=== PATIENT | female | born 1940 | race Caucasian/White ===

== ENCOUNTER 2024-02-20 13:10 | Emergency (ER) | payer MEDICARE, SELFPAY ==
[2024-02-20] VITALS (43 sets, daily range): BP systolic 109–138; BP diastolic 53–91; PULSE 63–91; TEMP 37; O2SAT 96–100; BMI 29.5
--- NOTE | 2024-02-20 13:24 | XR_ITS ---
[address] [address] Patient Name: LOVE XIAO MRN: [id number] date: 1940 Sex: F Assigned Patient Location: ER Current Patient Location: ED.MAIN Accession/Order Number: [id number] Exam Date: 02/20/2024 13:36 Report Date: 02/20/2024 13:52 At the request of: KIM FELDMAN Procedure: XR chest 1V EXAMINATION: XR chest 1V HISTORY: Weakness COMPARISON: XR chest 08/11/2016 FINDINGS: LUNGS: No significant pulmonary parenchymal abnormalities. VASCULATURE: No increased pulmonary vasculature. PLEURA: No pneumothorax, effusion, or pleural thickening. CARDIAC: Stable cardiomegaly. MEDIASTINUM: No visible mass or adenopathy. BONES: No fracture or visible bone lesion. OTHER: Hiatal hernia. XR/XR chest 1V IMPRESSION: 1. Hyperexpanded lungs suggestive of COPD. 2. No acute cardiopulmonary process. Electronically authenticated by: TISHA PEARSON Date: 02/20/2024 13:52
--- NOTE | 2024-02-20 13:29 | CT_ITS ---
The [address] [address] Patient Name: LOVE XIAO MRN: [id number] date: 1940 Sex: F Assigned Patient Location: ER Current Patient Location: ER Accession/Order Number: [id number] Exam Date: 02/20/2024 14:06 Report Date: 02/20/2024 14:34 At the request of: KIM FELDMAN Procedure: CT head/brain wo con EXAMINATION: CT head/brain wo con HISTORY: Generalized weakness COMPARISON: No relevant comparison available. TECHNIQUE: Axial CT images were obtained without IV contrast. Dose reduction techniques were achieved by using automated exposure control and/or adjustment of mA and/or kV according to patient size and/or use of iterative reconstruction technique. FINDINGS: BRAIN: No edema, hemorrhage, mass, acute infarction, or inappropriate atrophy. CSF SPACES: No hydrocephalus, subarachnoid hemorrhage, or mass. Appropriate for age. SKULL: No fracture, mass, or other significant visible lesion. SINUSES: No significant mucosal thickening or fluid on the limited views. ORBITS: No appreciable abnormality on the limited views. OTHER: Negative CT/CT head/brain wo con IMPRESSION: 1. No acute or suspicious findings to account for patient's symptoms. 2. Age consistent chronic changes. Electronically authenticated by: TISHA PEARSON Date: 02/20/2024 14:34
--- NOTE | 2024-02-20 13:30 | ED.GENADUL1 ---
HPI HPI - General Adult General Chief complaint: Weakness Stated complaint: general weakness Time Seen by Provider: 02/20/24 13:12 Source: patient and family Mode of arrival: Wheelchair Limitations: no limitations History of Present Illness HPI narrative: Patient is an 83-year-old female who presents to the emergency department for the evaluation of generalized weakness. This began about 6 hours ago. Patient was sitting on the toilet when her legs felt like Jell-O and she was not able to stand or transfer herself. She states that her legs feel very weak although she does not have any pain, numbness or tingling. She denies headache, visual changes, dizziness, palpitations, chest pain, shortness of breath. She is anticoagulated for history of A-fib. She has been compliant with all of her medications. She denies any recent illness, vomiting or diarrhea. She is able to move all extremities equally, although nursing reports that she was a two-person assist to get her out of the wheelchair and into bed when she is normally able to walk without difficulty. Related Data Home Medications ?Medication ?Instructions ?Recorded ?Confirmed apixaban 5 mg tablet (Eliquis) 5 mg PO Q12H 02/20/24 02/20/24 atenolol 50 mg tablet 50 mg PO Q24H 02/20/24 02/20/24 hydrochlorothiazide 25 mg tablet 25 mg PO DAILY 02/20/24 02/20/24 levothyroxine 50 mcg tablet 50 mcg PO DAILY 02/20/24 02/20/24 (Synthroid) metformin 500 mg tablet,extended 500 mg PO DAILY 02/20/24 02/20/24 release 24 hr omeprazole 40 mg capsule,delayed 40 mg PO DAILY 02/20/24 02/20/24 release pravastatin 40 mg tablet 40 mg PO DAILY 02/20/24 02/20/24 timolol maleate 0.5 % eye drops 1 drp ophthalmic (eye) BEDTIME 02/20/24 02/20/24 Allergies Allergy/AdvReac Type Severity Reaction Status Date / Time No Known Drug Allergies Allergy Verified 02/20/24 13:17 Opioid HPI Opioid Management Most Recent Opioid Data: No Data to Display Review of Systems ROS Constitutional Denies: fever or chills Ears, nose, mouth, and throat Denies: throat pain or nasal congestion Cardiovascular Denies: chest pain Respiratory Denies: shortness of breath Gastrointestinal Denies: nausea or vomiting Musculoskeletal Denies: back pain Integumentary/Breast Denies: rash Neurological Reports: dizziness; Denies: headache Hematologic/Lymphatic Denies: easy bruising or easy bleeding Exam Narrative Exam Narrative: Gen.: Awake, alert, in no distress Head: Normocephalic, atraumatic ENT: Moist mucous membranes Respiratory: No respiratory distress, lungs clear bilaterally Cardio: Regular rate and rhythm Gastrointestinal: Abdomen is soft, nondistended and nontender to palpation Extremities: Moves extremities equally, no injuries noted; Patient is able to flex and extend her knees at the hips, normal dorsiflexion and plantarflexion, no decrease in sensation to the medial thighs; 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 Psych: Normal mood and affect Neuro: No focal neuro deficit Skin: Warm, dry, intact Constitutional Vital Signs, click to edit/add: Last Vital Signs Temp 98.6 F 02/20/24 13:21 Pulse 82 02/20/24 16:00 Resp 19 02/20/24 16:00 BP 130/70 02/20/24 16:00 Pulse Ox 97 02/20/24 16:00 O2 Del Method Room Air 02/20/24 13:21 Course Vital Signs Vital signs: Vital Signs Pulse Oximetry 97 02/20/24 13:18 Temperature 98.6 F 02/20/24 13:21 Pulse Rate 82 02/20/24 16:00 Respiratory Rate 19 02/20/24 16:00 Blood Pressure 130/70 02/20/24 16:00 Pulse Oximetry 97 02/20/24 16:00 Oxygen Delivery Method Room Air 02/20/24 13:21 Medical Decision Making [facility] Narrative Medical decision making narrative: Patient treated with IV fluids, vital signs are stable. She has rate controlled atrial fibrillation which is chronic for her in the ER, no acute ST elevation and patient with no active chest pain or shortness of breath. She still complains of global weakness and required multiple people to transfer her. Her white blood cell count is 15.8, her labs are otherwise unremarkable although she has mildly elevated BUN at 38 with normal creatinine. We do not have an old set of labs from this patient to see if these findings are new. Initial lactic acid was elevated but repeat has improved to normal range. Initial troponin was 127.7 and Repeat elevated to 135.4. Patient reevaluated by attending physician, patient and family request transfer to [facility] that she cannot be admitted at this facility. She did take her Eliquis, we will defer heparin at this time as she has no active chest pain or EKG changes. Catheter urine specimen is mildly contaminated however no evidence of UTI. Patient is stable at time of transfer to [facility], critical care time 35 minutes. SHARED APC VISIT, PHYSICIAN ATTESTATION: [id number] I performed a substantive part of the MDM during the patient?s E/M visit. I personally evaluated and examined the patient. I personally made or approved the documented management plan and acknowledge its risk of complications. Medical Records Medical records reviewed: Yes I reviewed the patient's medical records Lab Data Lab results reviewed: Yes I reviewed the patient's lab results Labs: Lab Results 02/20/24 02/20/24 02/20/24 Range/Units 13:30 13:39 15:14 WBC 15.8 H (4.0-11.0) 10^3/uL RBC 3.98 L (4.20-5.40) 10^6/uL Hgb 11.7 L (12.0-16.0) g/dL Hct 36.2 (36.0-48.0) % MCV 91.0 (81.0-99.0) fL MCH 29.4 (26.7-34.0) pg MCHC 32.3 (29.9-35.2) g/dL RDW 14.2 (11.0-15.0) % Plt Count 249 (150-450) 10^3/uL MPV 10.9 (9.5-13.5) fL Neut % (Auto) 87.7 H (43.0-75.0) % Lymph % (Auto) 4.6 L (20.5-60.0) % Cass % (Auto) 6.6 (1.7-12.0) % Eos % (Auto) 0.2 L (0.9-7.0) % Baso % (Auto) 0.3 (0.2-2.0) % Neut # (Auto) 13.8 H (1.4-6.5) 10^3/uL Lymph # (Auto) 0.7 L (1.2-3.8) 10^3/uL Cass # (Auto) 1.0 H (0.3-0.8) 10^3/uL Eos # (Auto) 0.0 (0.0-0.7) 10^3/uL Baso # (Auto) 0.1 (0.0-0.1) 10^3/uL Abs Immat Gran (auto) 0.10 H (0.00-0.03) 10^3/uL Imm/Tot Granulo (auto) 0.6 H (0.0-0.5) % PT 11.9 H (9.0-11.6) sec INR 1.14 Sodium 140 (136-145) mmol/L Potassium 3.5 (3.5-5.1) mmol/L Chloride 101 (98-107) mmol/L Carbon Dioxide 28.3 (21.0-32.0) mmol/L Anion Gap 14.2 BUN 38.0 H (7.0-18.0) mg/dL Creatinine 0.95 (0.55-1.02) mg/dL Est GFR ( Amer) >60 (>=60) Est GFR (Non-Af Amer) 56 L (>=60) BUN/Creatinine Ratio 40.0 Glucose 191 H (74-106) mg/dL Lactate 3.0 H* 1.9 (0.4-2.0) mmol/L Calcium 9.2 (8.5-10.1) mg/dL Magnesium 1.8 (1.8-2.4) mg/dL Total Bilirubin 0.6 (0.2-1.0) mg/dL AST 53 H (15-37) U/L ALT 26 (14-59) U/L Alkaline Phosphatase 94 (46-116) U/L Troponin I High Sens 127.7 H* 135.4 H* (4.0-51.3) pg/mL NT-Pro-B Natriuret Pep 1471.0 (<=1800.0) pg/mL Total Protein 7.5 (6.4-8.2) g/dL Albumin 3.3 L (3.4-5.0) g/dL Globulin 4.2 g/dL Albumin/Globulin Ratio 0.8 TSH 2.346 (0.358-3.740) uIU/mL Urine Color Yellow (YELLOW) Urine Clarity Sl cloudy (CLEAR) Urine pH 6.0 (5.0-9.0) Ur Specific [place] 1.025 (1.005-1.025) Urine Protein 30 A (NEG/TRACE) mg/dL Urine Glucose (UA) Negative (NEGATIVE) mg/dL Urine Ketones Negative (NEGATIVE) mg/dL Urine Occult Blood Small A (NEGATIVE) Urine Nitrite Negative (NEGATIVE) Urine Bilirubin Negative (NEGATIVE) Urine Urobilinogen 1.0 (0.2-1.0) EU/dL Ur Leukocyte Esterase Negative (NEGATIVE) Urine RBC 0-2 (0-2) #/HPF Urine WBC 0-2 A (NONE SEEN) #/HPF Ur Squamous Epith Cells Many A (NONE/RARE) #/LPF Urine Crystals None seen (None Seen) #/HPF Urine Bacteria Large A (NONE SEEN) #/HPF Urine Casts None seen (NONE SEEN) #/LPF Urine Mucus Large A (NONE SEEN) Ur Culture Indicated? Yes Imaging Data Chest x-ray: Attestation: I have reviewed the pertinent imaging results. Radiologist's impression: ITS Impressions Chest X-Ray 02/20/24 13:24 IMPRESSION: 1. Hyperexpanded lungs suggestive of COPD. 2. No acute cardiopulmonary process. Electronically authenticated by: TISHA PEARSON Date: 02/20/2024 13:[address] 02/20/24 13:29 IMPRESSION: 1. No acute or suspicious findings to account for patient's symptoms. 2. Age consistent chronic changes. Electronically authenticated by: TISHA PEARSON Date: 02/20/2024 14:34 CT scan - head: Attestation: I have reviewed the pertinent imaging results. Radiologist's impression: ITS Impressions Chest X-Ray 02/20/24 13:24 IMPRESSION: 1. Hyperexpanded lungs suggestive of COPD. 2. No acute cardiopulmonary process. Electronically authenticated by: TISHA PEARSON Date: 02/20/2024 13:[address] 02/20/24 13:29 IMPRESSION: 1. No acute or suspicious findings to account for patient's symptoms. 2. Age consistent chronic changes. Electronically authenticated by: TISHA PEARSON Date: 02/20/2024 14:34 ECG Data Attestation: I personally reviewed and interpreted this ECG as follows: (Atrial fibrillation at a rate of 80, no acute ST elevation or ectopy. EKG reviewed by attending physician) Critical Care Time Critical Care Time Critical Care Time: Yes Total Critical Care Time: 35 Attestation: 35 minutes of critical care time billable for transfer to tertiary care facility and diagnosis of non-STEMI Discharge Plan Discharge Chief Complaint: Weakness Clinical Impression: Non-ST elevated myocardial infarction (non-STEMI), Weakness Patient Disposition: [facility] Time of Disposition Decision: 17:40 Discharge Location: [facility] Condition: Good Mode of Transportation: EMS
[2024-02-20 13:47] LABS: Bilirubin Urine NEGATIVE (NEGATIVE); Blood Urine SMALL (NEGATIVE); Clarity Urine SL CLOUDY (CLEAR); Color Urine YELLOW (YELLOW); Glucose Urine UA NEGATIVE (NEGATIVE); Ketones Urine NEGATIVE (NEGATIVE); Leukocyte Esterase Urine NEGATIVE (NEGATIVE); Nitrite Urine NEGATIVE (NEGATIVE); Protein Urine 30 mg/dL (NEG/TRACE); Specific Gravity Urine 1.025 (1.005-1.025)
[2024-02-20 13:49] LABS: Basophils Absolute Auto 0.1 10^3/uL (0.0-0.1); Basophils Percent Auto 0.3 % (0.2-2.0); Eosinophils Percent Auto 0.2 % (0.9-7.0); Hematocrit 36.2 % (36.0-48.0); Hemoglobin 11.7 g/dL (12.0-16.0); Immature Granulocytes Pct Auto 0.6 % (0.0-0.5); Lymphocytes Absolute Auto 0.7 10^3/uL (1.2-3.8); Lymphocytes Percent Auto 4.6 % (20.5-60.0); Mean Corpuscular HGB Conc 32.3 g/dL (29.9-35.2); Mean Corpuscular Hemoglobin 29.4 pg (26.7-34.0); Mean Platelet Volume 10.9 fL (9.5-13.5); Monocytes Percent Auto 6.6 % (1.7-12.0); Neutrophils Absolute Auto 13.8 10^3/uL (1.4-6.5); Neutrophils Percent Auto 87.7 % (43.0-75.0); Platelet Count 249 10^3/uL (150-450); Red Blood Count 3.98 10^6/uL (4.20-5.40); Red Cell Distribution Width 14.2 % (11.0-15.0); White Blood Count 15.8 10^3/uL (4.0-11.0)
[2024-02-20 14:02] LABS: INR 1.14; Prothrombin Time 11.9 sec (9.0-11.6)
[2024-02-20 14:07] LABS: Urine Microscopic Indicated YES
[2024-02-20 14:08] LABS: Alanine Aminotransferase 26 U/L (14-59); Albumin Globulin Ratio 0.8; Albumin Level 3.3 g/dL (3.4-5.0); Alkaline Phosphatase 94 U/L (46-116); Anion Gap 14.2; Aspartate Amino Transferase 53 U/L (15-37); Bilirubin Total 0.6 mg/dL (0.2-1.0); Calcium 9.2 mg/dL (8.5-10.1); Carbon Dioxide 28.3 mmol/L (21.0-32.0); Chloride 101 mmol/L (98-107); Estimated GFR (African America >60 (>=60); Estimated GFR (Non-African Ame 56 (>=60); Globulin 4.2 g/dL; Glucose 191 mg/dL (74-106); Magnesium 1.8 mg/dL (1.8-2.4); Potassium 3.5 mmol/L (3.5-5.1); Sodium 140 mmol/L (136-145); Total Protein 7.5 g/dL (6.4-8.2)
[2024-02-20 14:11] LABS: Bacteria Urine LARGE #/HPF (NONE SEEN); Mucus Urine LARGE (NONE SEEN); RBC Urine 0-2 #/HPF (0-2); WBC Urine 0-2 #/HPF (NONE SEEN)
[2024-02-20 14:12] LABS: Cast Seen? NONE SEEN #/LPF (NONE SEEN); Crystals Seen? None Seen #/HPF (None Seen); Squamous Epithelial Cell Urine MANY #/LPF (NONE/RARE); Urine Culture Indicated YES
[2024-02-20 14:12] LABS: Thyroid Stimulating Hormone 2.346 uIU/mL (0.358-3.740)
[2024-02-20 14:13] LABS: Troponin I High Sensitivity 127.7 pg/mL (4.0-51.3)
[2024-02-20] MEDS: 0.9 % SODIUM CHLORIDE 1,000 ML 1000 ML IV (14:19)
[2024-02-20 15:38] LABS: Lactate/Lactic Acid 1.9 mmol/L (0.4-2.0)
[2024-02-20 15:46] LABS: Troponin I High Sensitivity 135.4 pg/mL (4.0-51.3)
--- NOTE | 2024-02-20 15:53 | ECG_ITS ---
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
[2024-02-20 18:53] LABS: Creatine Kinase 1862 U/L (26-192); Creatine Kinase MB 39.69 ng/mL (<=3.60); Troponin I High Sensitivity 165.6 pg/mL (4.0-51.3)
== END 2024-02-20 19:55 | disposition short-term general hospital (02) ==
PROVIDERS: Physician Assistant; Emergency Provider Emergency Medicine Emergency Medical Services; PCP Nurse Practitioner Family
DX: I21.3 ST elevation (STEMI) myocardial infarction of unspecified site (principal); R53.1 Weakness; I48.91 Unspecified atrial fibrillation; Z79.01 Long term (current) use of anticoagulants
CPT/HCPCS: 36415; 70450; 71045; 80053; 81001; 82550; 82553; 83605; 83735; 83880; 84443; 84484; 85025; 85610; 87086; 93005; 99285

== ENCOUNTER 2024-06-30 12:39 | Emergency (ER) | payer MEDICARE, SELFPAY ==
--- OUTSIDE RECORDS SUMMARY | 2024-06-30 12:51 | XMS_ITS | CCD ---
Author Organization [facility] Care Team Providers Care Land Reclamation Specialist Name Role Phone TORI DIAZ Admitting Unavailable TORI DIAZ Attending Unavailable JOSE GALINDO Primary Care Unavailable TORI DIAZ Consulting Unavailable Jose Galindo Unavailable Unavailable Iliana Nava MD Primary Care Provider MARCIANO Isabel Primary Care Provider [phone] MD Cash Abreu Admit Provider MD Guero Cantu Attending Provider Guero Cantu Attending Unavailable Chen Calderon Consulting Unavailable Nolan Isabel Primary Care Unavailable Cash Abreu Admitting Unavailable Brayan Martin Consulting Unavailable Kyle Arenas Consulting Ana Lilia Mckeon Consulting Unavailable Jose Galindo Unavailable Unavailable NOLAN ISABEL Attending Unavailable BENITO CHO Attending Unavailable Allergies Allergy Classification Reported Allergen(s) Allergy Type Date of Onset Reaction(s) Facility (5 sources) Sucralfate Drug Allergy 4 GI intolerance [facility] Healthcare (5 sources) zoledronic acid Drug Allergy 4 [facility] Medications Current Medications Medication Drug Class(es) Dates Sig (Normalized) Sig (Original) apixaban 5 mg oral tablet (6 sources) Factor Xa Inhibitor Start: 12-08-2023 take 1 tablet by mouth in the morning apixaban (Eliquis) 5 MG tablet Indications: Persistent atrial fibrillation (HCC) (CMS/HCC) Take 1 tablet (5 mg) by mouth in the morning and 1 tablet (5 mg) before bedtime. 180 tablet 12/08/2023 Active apixaban (Eliqui s) 5 MG tablet Take by mouth twice a day 0 Active atenolol 50 mg oral tablet (6 sources) beta-Adrenergic Melissa Start: 06-29-2023 End: 06-28-2024 take 1 tablet by mouth in the morning atenolol (Tenormin) 50 MG tablet Indications: Primary hypertension (CMS/HCC) Take 1 tablet (50 mg) by mouth in the morning. 90 tablet 3 06/29/2023 06/28/2024 Active cholecalciferol 0.05 mg oral capsule (6 sources) Vitamin D Start: 02-21-2024 take 50 ug by mouth once daily Cholecalciferol (Vitamin D3) Active 50 MCG PO Daily February 21, 2024 12:00am take 1 capsule by mouth in the m orning cholecalciferol (Vitamin D-3) 50 MCG (1999 UT) capsule Take 2,000 Units by mouth in the morning. Active doxycycline hyclate 100 mg oral tablet (1 source) Tetracycline-class Drug Start: 02-26-2024 take 100 mg by mouth every twelve hours Doxycycline Hyclate Active 100 MG PO Q12H 20 February 26, 2024 12:00am hydroCHLOROthiazide 25 mg oral tablet (8 sources) Thiazide Diuretic Start: 03-15-2023 End: 10-11-2023 take 1 tablet by mouth in the morning hydroCHLOROthiazide (HYDRODiuril) 25 MG tablet Indications: Primary hypertension (CMS/HCC) Take 1 tablet (25 mg) by mouth in the morning. 90 tablet 1 10/11/2023 Active latanoprost 0.05 mg/ml ophthalmic solution (6 sources) Prostaglandin Analog Start: 02-21-2024 take 1 drop(s) into the eye(s) once daily Latanoprost Active 1 DROPS EYE-BOTH Daily February 21, 2024 12:00am Start: 02-02-2023 take 1 drop(s) into the eye(s) in the morning latanoprost (Xalatan) 0.005 % ophthalmic solution Administer 1 drop into affected eye(s) in the morning. 02/02/2023 Active levothyroxine sodium 0.05 mg oral tablet (6 sources) l-Thyroxine Start: 05-01-2023 End: 04-30-2024 take 1 tablet by mouth before mealtime levothyroxine (Synthroid, Levoxyl) 50 MCG tablet Indications: Acquired hypothyroidism (CMS/HCC) Take 1 tablet (50 mcg) by mouth in the morning. Take before meals. 90 tablet 3 05/01/2023 Active 24 hr metFORMIN hydrochloride 500 mg extended release oral tablet (6 sources) Biguanide Start: 02-21-2024 take 500 mg by mouth once daily Metformin Active 500 MG PO Daily February 21, 2024 12:00am Start: 03-15-2023 End: 03-14-2024 take 1 tablet by mouth every twenty-four hours at mealtime metFORMIN XR (Glucophage-XR) 500 MG 24 hr tablet Indications: Type 2 diabetes mellitus with hyperglycemia, without long-term current use of insulin (CMS/HCC) Take 1 tablet (500 mg) by mouth in the evening. Take with meals. 90 tablet 3 03/15/2023 Active omeprazole 40 mg delayed release oral capsule (8 sources) Proton Pump Inhibitor Start: 03-13-2023 End: 10-11-2023 take 1 capsule by mouth before mealtime omeprazole (PriLOSEC) [address] capsule Indications: Gastroesophageal reflux disease, unspecified whether esophagitis present Take 1 capsule (40 mg) by mouth in the morning. Take before meals. 90 capsule 1 10/11/2023 Active pravastatin sodium 40 mg oral tablet (8 sources) HMG-CoA Reductase Inhibitor Start: 04-14-2023 End: 04-13-2024 take 1 tablet by mouth in the morning pravastatin (Pravachol) 40 MG tablet Indications: Mixed hyperlipidemia (CMS/HCC) Take 1 tablet (40 mg) by mouth in the morning. 90 tablet 3 04/14/2023 Active Timolol (6 sources) beta-Adrenergic Melissa Start: 02-21-2024 take 1 drop(s) into the eye(s) once daily Timolol Active 1 DROPS EYE-BOTH Daily February 21, 2024 12:00am Start: 01-27-2023 take 1 drop(s) into the eye(s) at bedtime timolol (Timoptic) 0.5 % ophthalmic solution Administer 1 drop into affected eye(s) at bedtime 01/27/2023 Active Completed/Discontinued Medications Medication Drug Class(es) Dates Sig (Normalized) Sig (Original) moxifloxacin 5 mg/ml ophthalmic solution (2 sources) Quinolone Antimicrobial Start: 06-02-2023 End: 10-11-2023 take 1 drop(s) into the eye(s) four times daily moxifloxacin (Vigamox) 0.5 % ophthalmic solution instill 1 drop into left eye four times a day 0 06/02/2023 10/11/2023 Discontinued Problems Active Problems Problem Classification Problem Date Documented Date Episodic/Chronic Adjustment disorders (7 sources) Grief finding; Translations: [Adjustment disorder with depressed mood] Onset: 10-11-2023 10-13-2023 Chronic Anxiety disorders (7 sources) Anxiety; Translations: [Anxiety disorder, unspecified] Onset: 10-11-2023 10-13-2023 Chronic Cancer of breast (7 sources) Malignant neoplasm of female breast; Translations: [Malignant neoplasm of unspecified site of left female breast] Onset: 05-07-2015 10-13-2023 Chronic Cardiac dysrhythmias (9 sources) Persistent atrial fibrillation; Translations: [Other persistent atrial fibrillation] Onset: 10-11-2023 10-13-2023 Chronic Deficiency and other anemia (2 sources) Anemia; Translations: [Anemia, unspecified] 10-11-2023 Episodic Diabetes mellitus with complications (8 sources) Type 2 diabetes mellitus; Translations: [Type 2 diabetes mellitus with hyperglycemia] Onset: 10-11-2023 10-11-2023 Chronic Diabetes mellitus without complication (2 sources) Type 2 diabetes mellitus without complications; Translations: [Diabetes mellitus without mention of complication, type II or unspecified type, not stated as uncontrolled] Onset: 02-21-2024 03-02-2024 Chronic Diseases of white blood cells (3 sources) Leukocytosis; Translations: [Elevated white blood cell count, unspecified] Onset: 02-21-2024 02-21-2024 Chronic Disorders of lipid metabolism (7 sources) Mixed hyperlipidemia; Translations: [Mixed hyperlipidemia] Onset: 10-11-2023 10-11-2023 Chronic E Codes: Fall (3 sources) Fall; Translations: [Unspecified fall, initial encounter] Onset: 02-21-2024 02-21-2024 Episodic Essential hypertension (11 sources) Essential (primary) hypertension; Translations: [Essential hypertension] Onset: 04-23-2019 10-11-2023 Chronic External cause codes: Natural/environment (1 source) Bitten or stung by nonvenomous insect and other nonvenomous arthropods, initial encounter; Translations: [BITTEN NONVENOM INSCT OTH ARTH INIT] Onset: 04-23-2019 Glaucoma (5 sources) Primary open angle glaucoma; Translations: [Primary open-angle glaucoma, unspecified eye, mild stage] Onset: 10-11-2023 10-11-2023 Chronic Mycoses (2 sources) Onychomycosis due to dermatophyte ; Translations: [Tinea unguium] 06-24-2024 Episodic Osteoarthritis (7 sources) Primary coxarthrosis, bilateral; 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] Onset: 10-11-2023 10-13-2023 Chronic Osteoporosis (2 sources) Senile osteoporosis; Translations: [Age-related osteoporosis without current pathological fracture] 10-11-2023 Chronic Other connective tissue disease (5 sources) History of repair of hip joint; Translations: [Presence of right artificial hip joint] Onset: 10-11-2023 10-11-2023 Chronic Other connective tissue disease (4 sources) Pain in toe; Translations: [Pain in right toe(s)] 06-24-2024 Episodic Other nervous system disorders (7 sources) Difficulty initiating walking; Translations: [Difficulty in walking, not elsewhere classified] Onset: 10-11-2023 10-11-2023 Chronic Other nervous system disorders (2 sources) Unsteady when walking; Translations: [Unsteadiness on feet] 10-13-2023 Episodic Other screening for suspected conditions (not mental disorders or infectious disease) (3 sources) Raised cardiac enzyme or marker; Translations: [Other specified abnormal findings of blood chemistry] Onset: 02-21-2024 02-21-2024 Episodic Other skin disorders (2 sources) Dystrophia unguium; Translations: [Nail dystrophy] 06-24-2024 Episodic Paralysis (3 sources) Paraparesis; Translations: [Paraplegia, unspecified] Onset: 02-21-2024 02-21-2024 Chronic Residual codes; unclassified (2 sources) Screening for malignant neoplasm of cervix declined; Translations: [Procedure and treatment not carried out because of patient's decision for unspecified reasons] 10-13-2023 Episodic Residual codes; unclassified (2 sources) Colon cancer screening declined; Translations: [Procedure and treatment not carried out because of patient's decision for unspecified reasons] 10-13-2023 Episodic Residual codes; unclassified (2 sources) Osteoporosis screening declined; Translations: [Procedure and treatment not carried out because of patient's decision for unspecified reasons] 10-13-2023 Episodic Superficial injury; contusion (4 sources) Insect bite (nonvenomous), left ankle, initial encounter; Translations: [INSECT BITE NONVENOM LT ANKLE INIT] Onset: 04-21-2019 Episodic Thyroid disorders (7 sources) Acquired hypothyroidism; Translations: [Hypothyroidism, unspecified] Onset: 10-11-2023 10-11-2023 Chronic Unclassified (1 source) Other persistent atrial fibrillation; Translations: [Other persistent atrial fibrillation] Onset: 02-21-2024 Past or Other Problems Problem Classification Problem Date Documented Date Episodic/Chronic E Codes: Adverse effects of medical drugs (5 sources) Adverse reaction caused by bisphosphonate; Translations: [Adverse effect of other primarily systemic and hematological agents, initial encounter] Onset: 10-11-2023 10-11-2023 Episodic Esophageal disorders (10 sources) Gastroesophageal reflux disease; Translations: [Gastro-esophageal reflux disease without esophagitis] Onset: 10-11-2023 Resolved: 10-11-2023 10-11-2023 Chronic Mood disorders (5 sources) Mood disorders Onset: 10-11-2023 10-11-2023 Other bone disease and musculoskeletal deformities (7 sources) Osteopenia; Translations: [Other specified disorders of bone density and structure, unspecified site] Onset: 10-11-2023 10-13-2023 Episodic Other nutritional; endocrine; and metabolic disorders (5 sources) Body mass index 25-29 - overweight; Translations: [Overweight] Onset: 10-11-2023 10-11-2023 Episodic Residual codes; unclassified (5 sources) History of left mastectomy; Translations: [Acquired absence of left breast and nipple] Onset: 10-11-2023 10-11-2023 Episodic Results Test Name Value Interpretation Reference Range Facility Capillary blood glucose gurdeep urement by glucometer (mass/volume)Ordered By: Guero Cantu on 03-02-2024 Glucose [Mass/Vol] 165 mg/dL Normal [facility] Comment on above: Random Glucose Refer ence Range is dependent on time and content of last meal. Glucose of more than 200 mg/dL in a nonstressed, ambulatory subject supports the diagnosis of Diabetes Mellitus. Result Comment: Almo om Glucose Reference Range is dependent on time and content of last meal. Glucose of more than 200 mg/dL in a nonstressed, ambulatory subject supports the diagnosis of Diabetes Mellitus. PERFORMED BY: [address] [place] [address] PATHOLOGIST 911 EMERGENCY DISPATCHER KAYLIE CHICAS M.D. Performed By: #### P HOS, MG, BNP #### [facility] [address] [place] [address] Glucose Poct Glucometerson 0 03-02-2024 Glucose [Mass/Vol] 176 mg/dL Normal [facility] Comment on above: Result Comment: Almo om Glucose Reference Range is dependent on time and content of last meal. Glucose of more than 200 mg/dL in a nonstressed, ambulatory subject supports the diagnosis of Diabetes Mellitus. PERFORMED BY: [address] [place] [phone] PATHOLOGIST 911 EMERGENCY DISPATCHER KAYLIE CHICAS M.D. Performed By: #### P HOS, MG, BNP #### [facility] [address] [place] [address] Glucose [Mass/Vol] 156 mg/dL Normal [facility] Comment on above: Result Comment: Almo om Glucose Reference Range is dependent on time and content of last meal. Glucose of more than 200 mg/dL in a nonstressed, ambulatory subject supports the diagnosis of Diabetes Mellitus. PERFORMED BY: [address] [place] [id number] PATHOLOGIST 911 EMERGENCY DISPATCHER KAYLIE CHICAS M.D. Performed By: #### G LULS #### Point of Care testing , Glucose Poct Glucometerson 0 03-01-2024 Glucose [Mass/Vol] 204 mg/dL Normal [facility] Comment on above: Result Comment: Almo om Glucose Reference Range is dependent on time and content of last meal. Glucose of more than 200 mg/dL in a nonstressed, ambulatory subject supports the diagnosis of Diabetes Mellitus. PERFORMED BY: [address] [place] [address] PATHOLOGIST 911 EMERGENCY DISPATCHER KAYLIE CHICAS M.D. Performed By: #### G LULS #### Point of Care testing , Commemt1 Glu2: Cleaned Meter Normal [facility] Comment on above: Result Comment: PERF ORMED BY: [place] [address] PATHOLOGIST 911 EMERGENCY DISPATCHER KAYLIE CHICAS M.D. Performed By: #### P HOS, MG, BNP #### [address] Glucose [Mass/Vol] 187 mg/dL Normal [facility] Comment on above: Result Comment: Almo om Glucose Reference Range is dependent on time and content of last meal. Glucose of more than 200 mg/dL in a nonstressed, ambulatory subject supports the diagnosis of Diabetes Mellitus. Performed By: #### P HOS, MG, BNP #### [address] Glucose [Mass/Vol] 208 mg/dL Normal [facility] Comment on above: Result Comment: Almo om Glucose Reference Range is dependent on time and content of last meal. Glucose of more than 200 mg/dL in a nonstressed, ambulatory subject supports the diagnosis of Diabetes Mellitus. PERFORMED BY: [place] [address] PATHOLOGIST 911 EMERGENCY DISPATCHER KAYLIE CHICAS M.D. Performed By: #### G LULS #### Point of Care testing , Glucose [Mass/Vol] 143 mg/dL Normal [facility] Comment on above: Result Comment: Almo om Glucose Reference Range is dependent on time and content of last meal. Glucose of more than 200 mg/dL in a nonstressed, ambulatory subject supports the diagnosis of Diabetes Mellitus. PERFORMED BY: [place] [address] PATHOLOGIST 911 EMERGENCY DISPATCHER KAYLIE CHICAS M.D. Performed By: #### P HOS, MG, BNP #### [address] No Panel InformationOrdered By: Anand Khan on 03-01-2024 Bedside Glucose Comment Glu2: cleaned meter [facility] Glucose Poct Glucometerson 0 02-29-2024 Glucose [Mass/Vol] 159 mg/dL Normal [facility] Comment on above: Result Comment: Almo om Glucose Reference Range is dependent on time and content of last meal. Glucose of more than 200 mg/dL in a nonstressed, ambulatory subject supports the diagnosis of Diabetes Mellitus. PERFORMED BY: [place] [address] PATHOLOGIST 911 EMERGENCY DISPATCHER KAYLIE CHICAS M.D. Performed By: #### G LULS #### Point of Care testing , Glucose [Mass/Vol] 152 mg/dL Normal [facility] Comment on above: Result Comment: Almo Glucose Reference Range is dependent on time and content of last meal. Glucose of more than 200 mg/dL in a nonstressed, ambulatory subject supports the diagnosis of Diabetes Mellitus. PERFORMED BY: [place] [address] PATHOLOGIST 911 EMERGENCY DISPATCHER KAYLIE CHICAS M.D. Performed By: #### G LULS #### Point of Care testing , Glucose [Mass/Vol] 140 mg/dL Normal [facility] Comment on above: Result Comment: Almo Glucose Reference Range is dependent on time and content of last meal. Glucose of more than 200 mg/dL in a nonstressed, ambulatory subject supports the diagnosis of Diabetes Mellitus. PERFORMED BY: [place] [address] PATHOLOGIST 911 EMERGENCY DISPATCHER KAYLIE CHICAS M.D. Performed By: #### P HOS, MG, BNP #### [address] Glucose [Mass/Vol] 169 mg/dL Normal [facility] Comment on above: Result Comment: Almo Glucose Reference Range is dependent on time and content of last meal. Glucose of more than 200 mg/dL in a nonstressed, ambulatory subject supports the diagnosis of Diabetes Mellitus. PERFORMED BY: [place] [address] PATHOLOGIST 911 EMERGENCY DISPATCHER KAYLIE CHICAS M.D. Performed By: #### P HOS, MG, BNP #### [facility] [address] [place], [place] [id number] [facility] Glucose Poct Glucometerson 0 02-28-2024 Glucose [Mass/Vol] 170 mg/dL Normal [facility] Comment on above: Result Comment: Almo om Glucose Reference Range is dependent on time and content of last meal. Glucose of more than 200 mg/dL in a nonstressed, ambulatory subject supports the diagnosis of Diabetes Mellitus. PERFORMED BY: [place] [address] PATHOLOGIST 911 EMERGENCY DISPATCHER KAYLIE CHICAS M.D. Performed By: #### P HOS, MG, BNP #### [place] [address] [place] Glucose [Mass/Vol] 144 mg/dL Normal [facility] Comment on above: Result Comment: Almo om Glucose Reference Range is dependent on time and content of last meal. Glucose of more than 200 mg/dL in a nonstressed, ambulatory subject supports the diagnosis of Diabetes Mellitus. PERFORMED BY: [place] [address] PATHOLOGIST 911 EMERGENCY DISPATCHER KAYLIE CHICAS M.D. Performed By: #### P HOS, MG, BNP #### [place] [address] [place] Glucose [Mass/Vol] 190 mg/dL Normal [facility] Comment on above: Result Comment: Almo om Glucose Reference Range is dependent on time and content of last meal. Glucose of more than 200 mg/dL in a nonstressed, ambulatory subject supports the diagnosis of Diabetes Mellitus. PERFORMED BY: [place] [address] PATHOLOGIST 911 EMERGENCY DISPATCHER KAYLIE CHICAS M.D. Performed By: #### P HOS, MG, BNP #### [place] [id number] [place] Glucose [Mass/Vol] 170 mg/dL Normal [facility] Comment on above: Result Comment: Almo om Glucose Reference Range is dependent on time and content of last meal. Glucose of more than 200 mg/dL in a nonstressed, ambulatory subject supports the diagnosis of Diabetes Mellitus. PERFORMED BY: [place] [address] PATHOLOGIST 911 EMERGENCY DISPATCHER KAYLIE CHICAS M.D. Performed By: #### P HOS, MG, BNP #### [address] Glucose [Mass/Vol] 149 mg/dL Normal [facility] Comment on above: Result Comment: Almo om Glucose Reference Range is dependent on time and content of last meal. Glucose of more than 200 mg/dL in a nonstressed, ambulatory subject supports the diagnosis of Diabetes Mellitus. PERFORMED BY: [place] [address] PATHOLOGIST 911 EMERGENCY DISPATCHER KAYLIE CHICAS M.D. Performed By: #### G LULS #### Point of Care testing , Glucose Poct Glucometerson 0 02-27-2024 Glucose [Mass/Vol] 134 mg/dL Normal [facility] Comment on above: Result Comment: Almo om Glucose Reference Range is dependent on time and content of last meal. Glucose of more than 200 mg/dL in a nonstressed, ambulatory subject supports the diagnosis of Diabetes Mellitus. PERFORMED BY: [place] [id number] PATHOLOGIST 911 EMERGENCY DISPATCHER KAYLIE CHICAS M.D. Performed By: #### G LULS #### Point of Care testing , Glucose [Mass/Vol] 215 mg/dL Normal [facility] Comment on above: Result Comment: Almo om Glucose Reference Range is dependent on time and content of last meal. Glucose of more than 200 mg/dL in a nonstressed, ambulatory subject supports the diagnosis of Diabetes Mellitus. PERFORMED BY: [place] [id number] PATHOLOGIST 911 EMERGENCY DISPATCHER JIANLAN SUN M.D. Performed By: #### P HOS, MG, BNP #### [address] Glucose [Mass/Vol] 171 mg/dL Normal [facility] Comment on above: Result Comment: Almo om Glucose Reference Range is dependent on time and content of last meal. Glucose of more than 200 mg/dL in a nonstressed, ambulatory subject supports the diagnosis of Diabetes Mellitus. PERFORMED BY: [place] [address] PATHOLOGIST 911 EMERGENCY DISPATCHER KAYLIE CHICAS M.D. Performed By: #### G LULS #### Point of Care testing , Glucose [Mass/Vol] 141 mg/dL Normal [facility] Comment on above: Result Comment: Almo om Glucose Reference Range is dependent on time and content of last meal. Glucose of more than 200 mg/dL in a nonstressed, ambulatory subject supports the diagnosis of Diabetes Mellitus. PERFORMED BY: [place] [address] PATHOLOGIST 911 EMERGENCY DISPATCHER KAYLIE CHICAS M.D. Performed By: #### P HOS, MG, BNP #### [address] Glucose Poct Glucometerson 0 02-26-2024 Glucose [Mass/Vol] 144 mg/dL Normal [facility] Comment on above: Result Comment: Almo om Glucose Reference Range is dependent on time and content of last meal. Glucose of more than 200 mg/dL in a nonstressed, ambulatory subject supports the diagnosis of Diabetes Mellitus. PERFORMED BY: [place] [address] PATHOLOGIST 911 EMERGENCY DISPATCHER KAYLIE CHICAS M.D. Performed By: #### G LULS #### Point of Care testing , Commemt1 Glu2: Cleaned Meter Normal [facility] Comment on above: Result Comment: PERF ORMED BY: [place] [address] PATHOLOGIST 911 EMERGENCY DISPATCHER KAYLIE CHICAS M.D. Performed By: #### P HOS, MG, BNP #### [facility] [address] Glucose [Mass/Vol] 164 mg/dL Normal [facility] Comment on above: Result Comment: Almo om Glucose Reference Range is dependent on time and content of last meal. Glucose of more than 200 mg/dL in a nonstressed, ambulatory subject supports the diagnosis of Diabetes Mellitus. Performed By: #### P HOS, MG, BNP #### [address] Commemt1 Glu2: Cleaned Meter Normal [facility] Comment on above: Result Comment: PERF ORMED BY: [place] [address] PATHOLOGIST 911 EMERGENCY DISPATCHER KAYLIE CHICAS M.D. Performed By: #### P HOS, MG, BNP #### [address] Glucose [Mass/Vol] 137 mg/dL Normal [facility] Comment on above: Result Comment: Almo om Glucose Reference Range is dependent on time and content of last meal. Glucose of more than 200 mg/dL in a nonstressed, ambulatory subject supports the diagnosis of Diabetes Mellitus. Performed By: #### P HOS, MG, BNP #### [address] Glucose [Mass/Vol] 157 mg/dL Normal [facility] Comment on above: Result Comment: Almo om Glucose Reference Range is dependent on time and content of last meal. Glucose of more than 200 mg/dL in a nonstressed, ambulatory subject supports the diagnosis of Diabetes Mellitus. PERFORMED BY: [place] [address] PATHOLOGIST 911 EMERGENCY DISPATCHER KAYLIE CHICAS M.D. Performed By: #### G LULS #### Point of Care testing , Alanine aminotransferase [En zymatic activity/volume] in Serum or PlasmaOrdered By: Navi Torres on 02-25-2024 ALT [Catalytic activity/Vol] 18 U/L Normal 7-52 [facility] Comment on above: Performed By: #### H S TROP #### [address] Albumin [Mass/volume] in Ser um or Plasma by Bromocresol green (BCG) dye binding methoOrdered By: Navi Torres on 02-25-2024 Albumin BCG dye [Mass/Vol] 3.2 g/dL Low 3.5-5.7 [facility] Alkaline phosphatase [Enzyma tic activity/volume] in Serum or PlasmaOrdered By: Navi Torres on 02-25-2024 ALP [Catalytic activity/Vol] 61 U/L Normal 34-104 [facility] Comment on above: Performed By: #### H S TROP #### [address] Aspartate aminotransferase [ Enzymatic activity/volume] in Serum or PlasmaOrdered By: Navi Torres on 02-25-2024 AST [Catalytic activity/Vol] 21 U/L Normal 13-39 [facility] Comment on above: Performed By: #### H S TROP #### [address] Automated basophil %Ordered By: Cash Abreu on 02-25-2024 Basophils/100 WBC (Bld) 0.7 % Normal . [facility] Comment on above: Performed By: #### H S TROP #### [address] Automated basophil countOrde red By: Cash Abreu on 02-25-2024 Basophils (Bld) [#/Vol] 0.0 10*3/uL Normal 0.0-0.2 [facility] Comment on above: Result Comment: PERF ORMED BY: [place] [address] PATHOLOGIST 911 EM[employer] DISPATCHER KAYLIE CHICAS M.D. Performed By: #### H S TROP #### [address] Automated blood monocyte cou ntOrdered By: Cash Abreu on 02-25-2024 Monocytes (Bld) [#/Vol] 0.6 10*3/uL Normal 0.0-0.8 [facility] Comment on above: Performed By: #### H S TROP #### [address] Automated eosinophil %Ordere d By: Cash Abreu on 02-25-2024 Eosinophils/100 WBC (Bld) 6.1 % Normal . [facility] Comment on above: Performed By: #### H S TROP #### [address] Automated eosinophil countOr dered By: Cash Abreu on 02-25-2024 Eosinophils (Bld) [#/Vol] 0.4 10*3/uL Normal 0.0-0.45 [facility] Comment on above: Performed By: #### H S TROP #### [address] Automated monocyte %Ordered By: Cash Abreu on 02-25-2024 Monocytes/100 WBC (Bld) 9.3 % Normal . [facility] Comment on above: Performed By: #### H S TROP #### [address] Automated neutrophil %Ordere d By: Cash Abreu on 02-25-2024 Neutrophils/100 WBC (Bld) 68.6 % Normal . [facility] Comment on above: Performed By: #### H S TROP #### [address] Bilirubin.total [Mass/volume ] in Serum or PlasmaOrdered By: Navi Torres on 02-25-2024 Bilirubin [Mass/Vol] 0.6 mg/dL Normal 0.3-1.0 [facility] Comment on above: Performed By: #### H S TROP #### [address] Calcium [Mass/volume] in Ser um or PlasmaOrdered By: Navi Torres on 02-25-2024 Calcium [Mass/Vol] 8.6 mg/dL Normal 8.6-10.3 [facility] Comment on above: Performed By: #### H S TROP #### [address] Carbon dioxide, total [Moles /volume] in Serum or PlasmaOrdered By: Navi Torres on 02-25-2024 CO2 [Moles/Vol] 28.5 mmol/L Normal 21.0-31.0 [facility] Comment on above: Performed By: #### H S TROP #### [address] Chloride [Moles/volume] in S rose or PlasmaOrdered By: Navi Torres on 02-25-2024 Chloride [Moles/Vol] 104 mmol/L Normal 98-107 [facility] Comment on above: Performed By: #### H S TROP #### [address] Complete Blood Count Auto Di ffon 02-25-2024 Mean Corpuscular HGB Conc 34.2 g/dL Normal 32.0-35.0 [facility] Comment on above: Performed By: #### H S TROP #### [address] NRBC% 0.1 /100{WBC} Normal 0-0.5 [facility] Comment on above: Performed By: #### H S TROP #### [address] Comprehensive Metabolic Pane leander 02-25-2024 Albumin [Mass/Vol] 3.2 g/dL Low 3.5-5.7 [facility] Comment on above: Performed By: #### H S TROP #### [address] Creatinine Clr Calc Pharmacy 61.42 Normal [facility] Comment on above: Result Comment: PERF ORMED BY: [place] [address] PATHOLOGIST 911 EMERGENCY DISPATCHER KAYLIE CHICAS M.D. Performed By: #### H S TROP #### [address] GFR/1.73 sq M.predicted MDRD (S/P/Bld) [Vol rate/Area] mL/min/{1.73_m2} Normal [facility] Comment on above: Performed By: #### H S TROP #### [address] Creatinine [Mass/volume] in Serum or PlasmaOrdered By: Navi Torres on 02-25-2024 Creatinine [Mass/Vol] 0.54 mg/dL Low 0.60-1.[address] [facility] Comment on above: Performed By: #### H S TROP #### [address] Erythrocyte distribution wid th [Ratio] by Automated countOrdered By: Cash Abreu on 02-25-2024 Erythrocyte distribution width (RBC) [Ratio] 14.6 % Normal 11.9-15.3 [facility] Comment on above: Performed By: #### H S TROP #### [address] Erythrocytes [#/volume] in B lood by Automated countOrdered By: Cash Abreu on 02-25-2024 RBC (Bld) [#/Vol] 3.62 10*6/uL Normal 3.60-5.00 [facility] Comment on above: Performed By: #### H S TROP #### [address] Glucose Poct Glucometerson 0 02-25-2024 Glucose [Mass/Vol] 177 mg/dL Normal [facility] Comment on above: Result Comment: [facility] Glucose Reference Range is dependent on time and content of last meal. Glucose of more than 200 mg/dL in a nonstressed, ambulatory subject supports the diagnosis of Diabetes Mellitus. PERFORMED BY: [place] [address] PATHOLOGIST 911 EMERGENCY DISPATCHER KAYLIE CHICAS M.D. Performed By: #### G LULS #### Point of Care testing , Glucose [Mass/Vol] 137 mg/dL Normal [facility] Comment on above: Result Comment: Almo om Glucose Reference Range is dependent on time and content of last meal. Glucose of more than 200 mg/dL in a nonstressed, ambulatory subject supports the diagnosis of Diabetes Mellitus. PERFORMED BY: [place] [address] PATHOLOGIST 911 EMERGENCY DISPATCHER KAYLIE CHICAS M.D. Performed By: #### P HOS, MG, BNP #### [facility] [address] [place] [address] Glucose [Mass/Vol] 167 mg/dL Normal [facility] Comment on above: Result Comment: Almo om Glucose Reference Range is dependent on time and content of last meal. Glucose of more than 200 mg/dL in a nonstressed, ambulatory subject supports the diagnosis of Diabetes Mellitus. PERFORMED BY: [place] [address] PATHOLOGIST 911 EMERGENCY DISPATCHER KAYLIE CHICAS M.D. Performed By: #### G LULS #### Point of Care testing , Glucose [Mass/Vol] 144 mg/dL Normal [facility] Comment on above: Result Comment: Almo om Glucose Reference Range is dependent on time and content of last meal. Glucose of more than 200 mg/dL in a nonstressed, ambulatory subject supports the diagnosis of Diabetes Mellitus. PERFORMED BY: [place] [address] PATHOLOGIST 911 EMERGENCY DISPATCHER KAYLIE CHICAS M.D. Performed By: #### H S TROP #### [facility] [address] [place] [address] [place] Glucose [Mass/volume] in Ser um or PlasmaOrdered By: Navi Torres on 02-25-2024 Glucose [Mass/Vol] 160 mg/dL High 70-100 [facility] Comment on above: ADA recommended refe rence rangeRandom Glucose Reference Range is dependent on time and content of last meal. Glucose of more than 200 mg/dL in a nonstressed, ambulatory subject supports the diagnosis of Diabetes Mellitus. Result Comment: Almo om Glucose Reference Range is dependent on time and content of last meal. Glucose of more than 200 mg/dL in a nonstressed, ambulatory subject supports the diagnosis of Diabetes Mellitus. ADA recommended reference range Performed By: #### H S TROP #### [address] Hematocrit [Volume Fraction] of Blood by Automated countOrdered By: Cash Abreu on 02-25-2024 Hematocrit (Bld) [Volume fraction] 32.0 % Low 34.0-46.4 [facility] Comment on above: Performed By: #### H S TROP #### [address] Hemoglobin [Mass/volume] in BloodOrdered By: Cash Abreu on 02-25-2024 Hemoglobin (Bld) [Mass/Vol] 10.9 g/dL Low 11.8-15.4 [facility] Comment on above: Performed By: #### H S TROP #### [address] Leukocytes [#/volume] correc flores for nucleated erythrocytes in Blood by Automated counOrdered By: Cash Abreu on 02-25-2024 WBC corrected for nucl RBC Auto (Bld) [#/Vol] 6.8 10*3/uL 3.8-11.6 [facility] Leukocytes [#/volume] in Blo od by Automated countOrdered By: Cash Abreu on 02-25-2024 WBC (Bld) [#/Vol] 6.8 10*3/uL Normal 3.8-11.6 [facility] Comment on above: Performed By: #### H S TROP #### [address] Lymphocytes [#/volume] in Bl ood by Automated countOrdered By: Cash Abreu on 02-25-2024 Lymphocytes (Bld) [#/Vol] 1.0 10*3/uL Normal 1.00-4.8 [facility] Comment on above: Performed By: #### H S TROP #### [place] [address] [place] Lymphocytes/100 leukocytes i n Blood by Automated countOrdered By: Cash Abreu on 02-25-2024 Lymphocytes/100 WBC (Bld) 15.3 % Normal . [facility] Comment on above: Performed By: #### H S TROP #### [facility] [address] [place] [address] MCH [Entitic mass] by Automa flores countOrdered By: Cash Abreu on 02-25-2024 MCH (RBC) [Entitic mass] 30.2 pg Normal 24.7-34.3 [facility] Comment on above: Performed By: #### H S TROP #### [address] MCHC Auto (RBC) [Mass/Vol]Or dered By: Cash Abreu on 02-25-2024 MCHC (RBC) [Mass/Vol] 34.2 g/dL 32.0-35.[address] [facility] MCV [Entitic volume] by Auto mated countOrdered By: Cash Abreu on 02-25-2024 MCV (RBC) [Entitic vol] 88.3 fL Normal 80-100 [facility] Comment on above: Performed By: #### H S TROP #### [address] Neutrophils [#/volume] in Bl ood by Automated countOrdered By: Cash Abreu on 02-25-2024 Neutrophils (Bld) [#/Vol] 4.7 10*3/uL Normal 1.8-7.7 [facility] Comment on above: Performed By: #### H S TROP #### [address] No Panel InformationOrdered By: Navi Torres on 02-25-2024 Estimated GFR (CKD-EPI) > 60.0 mL/Min [facility] Creatinine Clearance (Chem 61.42 [facility] Nucleated erythrocytes [Pres ence] in Blood by Automated countOrdered By: Cash Abreu on 02-25-2024 Nucleated RBC Auto Ql (Bld) 0.1 /100{WBC} 0-0.5 [facility] Platelet mean volume [Entiti c volume] in Blood by Automated countOrdered By: Cash Abreu on 02-25-2024 Platelet mean volume (Bld) [Entitic vol] 8.2 fL Normal 6.3-10.7 [facility] Comment on above: Performed By: #### H S TROP #### [address] Platelets [#/volume] in Bloo d by Automated countOrdered By: Cash Abreu on 02-25-2024 Platelets (Bld) [#/Vol] 237 10*3/uL Normal 150-450 [facility] Comment on above: Performed By: #### H S TROP #### [address] Potassium [Moles/volume] in Serum or PlasmaOrdered By: Navi Torres on 02-25-2024 Potassium [Moles/Vol] 3.8 mmol/L Normal 3.5-5.[address] [facility] Comment on above: Performed By: #### H S TROP #### [address] Protein [Mass/volume] in Ser um or PlasmaOrdered By: Navi Torres on 02-25-2024 Protein [Mass/Vol] 5.9 g/dL Low 6.4-8.9 [facility] Comment on above: Performed By: #### H S TROP #### [address] Serum globulin measurement b y calculation (mass/volume)Ordered By: Navi Torres on 02-25-2024 Globulin (S) [Mass/Vol] 2.7 g/dL Normal [facility] Comment on above: Performed By: #### H S TROP #### [address] Serum or plasma albumin/glob ulin mass ratioOrdered By: Navi Torres on 02-25-2024 Albumin/Globulin [Mass ratio] 1.2 {ratio} Normal [facility] Comment on above: Performed By: #### H S TROP #### [address] Serum or plasma anion gap de terminationOrdered By: Navi Dogee on 02-25-2024 Anion gap [Moles/Vol] 10.3 mmol/L Normal 6.0-15.0 [facility] Comment on above: Performed By: #### H S TROP #### [address] Sodium [Moles/volume] in Ser um or PlasmaOrdered By: Navi Doamekpor on 02-25-2024 Sodium [Moles/Vol] 139 mmol/L Normal 136-145 [facility] Comment on above: Performed By: #### H S TROP #### [address] Urea nitrogen [Mass/volume] in Serum or PlasmaOrdered By: Navirafita Rodriguezkpsariah on 02-25-2024 Urea nitrogen [Mass/Vol] 20 mg/dL Normal 7-25 [facility] Comment on above: Performed By: #### H S TROP #### [address] Complete Blood Count Auto Di ffon 02-24-2024 Basophils (Bld) [#/Vol] 0.0 10*3/uL Normal 0.0-0.2 [facility] Comment on above: Result Comment: PERF ORMED BY: [place] [address] PATHOLOGIST 911 EMERGENCY DISPATCHER KAYLIE CHICAS M.D. Performed By: #### H S TROP #### [place] [address] [place] Basophils/100 WBC (Bld) 0.6 % Normal . [facility] Comment on above: Performed By: #### H S TROP #### [address] Eosinophils (Bld) [#/Vol] 0.4 10*3/uL Normal 0.0-0.45 [facility] Comment on above: Performed By: #### H S TROP #### [address] Eosinophils/100 WBC (Bld) 6.0 % Normal . [facility] Comment on above: Performed By: #### H S TROP #### [address] Erythrocyte distribution width (RBC) [Ratio] 14.9 % Normal 11.9-15.3 [facility] Comment on above: Performed By: #### H S TROP #### [address] Hematocrit (Bld) [Volume fraction] 31.9 % Low 34.0-46.4 [facility] Comment on above: Performed By: #### H S TROP #### [address] Hemoglobin (Bld) [Mass/Vol] 10.7 g/dL Low 11.8-15.4 [facility] Comment on above: Performed By: #### H S TROP #### [address] Lymphocytes (Bld) [#/Vol] 1.0 10*3/uL Normal 1.00-4.8 [facility] Comment on above: Performed By: #### H S TROP #### [address] Lymphocytes/100 WBC (Bld) 14.9 % Normal . [facility] Comment on above: Performed By: #### H S TROP #### [address] MCH (RBC) [Entitic mass] 29.5 pg Normal 24.7-34.3 [facility] Comment on above: Performed By: #### H S TROP #### [address] MCV (RBC) [Entitic vol] 87.6 fL Normal 80-100 [facility] Comment on above: Performed By: #### H S TROP #### [address] Mean Corpuscular HGB Conc 33.7 g/dL Normal 32.0-35.0 [facility] Comment on above: Performed By: #### H S TROP #### [place] [address] [place] Monocytes (Bld) [#/Vol] 0.7 10*3/uL Normal 0.0-0.8 [facility] Comment on above: Performed By: #### H S TROP #### [place] [address] [place] Monocytes/100 WBC (Bld) 9.5 % Normal . [facility] Comment on above: Performed By: #### H S TROP #### [address] Neutrophils (Bld) [#/Vol] 4.9 10*3/uL Normal 1.8-7.7 [facility] Comment on above: Performed By: #### H S TROP #### [place] [address] [place] Neutrophils/100 WBC (Bld) 69.0 % Normal . [facility] Comment on above: Performed By: #### H S TROP #### [address] NRBC% 0.2 /100{WBC} Normal 0-0.5 [facility] Comment on above: Performed By: #### H S TROP #### [address] Platelet mean volume (Bld) [Entitic vol] 8.1 fL Normal 6.3-10.7 [facility] Comment on above: Performed By: #### H S TROP #### [place] [address] [place] Platelets (Bld) [#/Vol] 219 10*3/uL Normal 150-450 [facility] Comment on above: Performed By: #### H S TROP #### [place] [address] [place] RBC (Bld) [#/Vol] 3.64 10*6/uL Normal 3.60-5.[address] [facility] Comment on above: Performed By: #### H S TROP #### [address] WBC (Bld) [#/Vol] 7.1 10*3/uL Normal 3.8-11.6 [facility] Comment on above: Performed By: #### H S TROP #### [address] Comprehensive Metabolic Pane leander 02-24-2024 Albumin [Mass/Vol] 3.2 g/dL Low 3.5-5.7 [facility] Comment on above: Performed By: #### H S TROP #### [address] Albumin/Globulin [Mass ratio] 1.4 {ratio} Normal [facility] Comment on above: Performed By: #### H S TROP #### [address] ALP [Catalytic activity/Vol] 64 U/L Normal 34-104 [facility] Comment on above: Performed By: #### H S TROP #### [address] ALT [Catalytic activity/Vol] 18 U/L Normal 7-52 [facility] Comment on above: Performed By: #### H S TROP #### [address] Anion gap [Moles/Vol] 9.3 mmol/L Normal 6.0-15.0 [facility] Comment on above: Performed By: #### H S TROP #### [address] AST [Catalytic activity/Vol] 22 U/L Normal 13-39 [facility] Comment on above: Performed By: #### H S TROP #### [address] Bilirubin [Mass/Vol] 0.6 mg/dL Normal 0.3-1.0 [facility] Comment on above: Performed By: #### H S TROP #### [address] Calcium [Mass/Vol] 8.4 mg/dL Low 8.6-10.3 [facility] Comment on above: Performed By: #### H S TROP #### [place] [address] [place] Chloride [Moles/Vol] 107 mmol/L Normal 98-107 [facility] Comment on above: Performed By: #### H S TROP #### [address] CO2 [Moles/Vol] 27.9 mmol/L Normal 21.0-31.0 [facility] Comment on above: Performed By: #### H S TROP #### [address] Creatinine [Mass/Vol] 0.46 mg/dL Low 0.60-1.20 [facility] Comment on above: Performed By: #### H S TROP #### [address] Creatinine Clr Calc Pharmacy 61.73 Normal [facility] Comment on above: Result Comment: PERF ORMED BY: [place] [address] PATHOLOGIST 911 EMERGENCY DISPATCHER KAYLIE CHICAS M.D. Performed By: #### H S TROP #### [address] GFR/1.73 sq M.predicted MDRD (S/P/Bld) [Vol rate/Area] mL/min/{1.73_m2} Normal [facility] Comment on above: Performed By: #### H S TROP #### [address] Globulin (S) [Mass/Vol] 2.3 g/dL Normal [facility] Comment on above: Performed By: #### H S TROP #### [address] [place] [address] [place] Glucose [Mass/Vol] 160 mg/dL High 70-100 [facility] Comment on above: Result Comment: Almo Glucose Reference Range is dependent on time and content of last meal. Glucose of more than 200 mg/dL in a nonstressed, ambulatory subject supports the diagnosis of Diabetes Mellitus. ADA recommended reference range Performed By: #### H S TROP #### [facility] [address] Potassium [Moles/Vol] 4.2 mmol/L Normal 3.5-5.1 [facility] Comment on above: Performed By: #### H S TROP #### [address] Protein [Mass/Vol] 5.5 g/dL Low 6.4-8.9 [facility] Comment on above: Performed By: #### H S TROP #### [address] Sodium [Moles/Vol] 140 mmol/L Normal 136-145 [facility] Comment on above: Performed By: #### H S TROP #### [place] [address] [place] Urea nitrogen [Mass/Vol] 19 mg/dL Normal 7-25 [facility] Comment on above: Performed By: #### H S TROP #### [address] Creatine kinase [Enzymatic a ctivity/volume] in Serum or PlasmaOrdered By: Navi Torres on 02-24-2024 CK [Catalytic activity/Vol] 187 U/L Normal 30-223 [facility] Comment on above: Result Comment: PERF ORMED BY: [place] [address] PATHOLOGIST 911 EMERGENCY DISPATCHER KAYLIE CHICAS M.D. Performed By: #### H S TROP #### [address] Glucose Poct Glucometerson 0 02-24-2024 Glucose [Mass/Vol] 159 mg/dL Normal [facility] Comment on above: Result Comment: Almo om Glucose Reference Range is dependent on time and content of last meal. Glucose of more than 200 mg/dL in a nonstressed, ambulatory subject supports the diagnosis of Diabetes Mellitus. PERFORMED BY: [place] [address] PATHOLOGIST 911 EMERGENCY DISPATCHER KAYLIE CHICAS M.D. Performed By: #### P HOS, MG, BNP #### [address] Glucose [Mass/Vol] 128 mg/dL Normal [facility] Comment on above: Result Comment: Almo om Glucose Reference Range is dependent on time and content of last meal. Glucose of more than 200 mg/dL in a nonstressed, ambulatory subject supports the diagnosis of Diabetes Mellitus. PERFORMED BY: [place] [address] PATHOLOGIST 911 EMERGENCY DISPATCHER KAYLIE CHICAS M.D. Performed By: #### H S TROP #### [address] Glucose [Mass/Vol] 123 mg/dL Normal [facility] Comment on above: Result Comment: Almo om Glucose Reference Range is dependent on time and content of last meal. Glucose of more than 200 mg/dL in a nonstressed, ambulatory subject supports the diagnosis of Diabetes Mellitus. PERFORMED BY: [place] [address] PATHOLOGIST 911 EMERGENCY DISPATCHER KAYLIE CHICAS M.D. Performed By: #### H S TROP #### [place] [address] [place] Glucose [Mass/Vol] 147 mg/dL Normal [facility] Comment on above: Result Comment: Almo om Glucose Reference Range is dependent on time and content of last meal. Glucose of more than 200 mg/dL in a nonstressed, ambulatory subject supports the diagnosis of Diabetes Mellitus. PERFORMED BY: [place] [address] PATHOLOGIST 911 EMERGENCY DISPATCHER KAYLIE CHICAS M.D. Performed By: #### P HOS, MG, BNP #### [address] Complete Blood Count Auto Di ffon 02-23-2024 Basophils (Bld) [#/Vol] 0.0 10*3/uL Normal 0.0-0.2 [facility] Comment on above: Result Comment: PERF ORMED BY: [place] [address] PATHOLOGIST 911 EMERGENCY DISPATCHER KAYLIE CHICAS M.D. Performed By: #### P HOS, MG, BNP #### [address] Basophils/100 WBC (Bld) 0.6 % Normal . [facility] Comment on above: Performed By: #### P HOS, MG, BNP #### [address] Eosinophils (Bld) [#/Vol] 0.3 10*3/uL Normal 0.0-0.45 [facility] Comment on above: Performed By: #### P HOS, MG, BNP #### [address] Eosinophils/100 WBC (Bld) 5.2 % Normal . [facility] Comment on above: Performed By: #### P HOS, MG, BNP #### [address] Erythrocyte distribution width (RBC) [Ratio] 14.8 % Normal 11.9-15.3 [facility] Comment on above: Performed By: #### P HOS, MG, BNP #### [address] Hematocrit (Bld) [Volume fraction] 32.5 % Low 34.0-46.4 [facility] Comment on above: Performed By: #### P HOS, MG, BNP #### [address] Hemoglobin (Bld) [Mass/Vol] 10.9 g/dL Low 11.8-15.4 The [facility] Comment on above: Performed By: #### P HOS, MG, BNP #### [address] Lymphocytes (Bld) [#/Vol] 1.0 10*3/uL Normal 1.00-4.8 The [facility] Comment on above: Performed By: #### P HOS, MG, BNP #### [address] Lymphocytes/100 WBC (Bld) 15.1 % Normal . The [facility] Comment on above: Performed By: #### P HOS, MG, BNP #### [address] MCH (RBC) [Entitic mass] 29.3 pg Normal 24.7-34.3 The [facility] Comment on above: Performed By: #### P HOS, MG, BNP #### [address] MCV (RBC) [Entitic vol] 87.8 fL Normal 80-100 [facility] Comment on above: Performed By: #### P HOS, MG, BNP #### [address] Mean Corpuscular HGB Conc 33.4 g/dL Normal 32.0-35.0 The [facility] Comment on above: Performed By: #### P HOS, MG, BNP #### [place] [address] [place] Monocytes (Bld) [#/Vol] 0.6 10*3/uL Normal 0.0-0.8 The [facility] Comment on above: Performed By: #### P HOS, MG, BNP #### [place] [address] [place] Monocytes/100 WBC (Bld) 9.9 % Normal . [facility] Comment on above: Performed By: #### P HOS, MG, BNP #### [address] Neutrophils (Bld) [#/Vol] 4.4 10*3/uL Normal 1.8-7.7 The [facility] Comment on above: Performed By: #### P HOS, MG, BNP #### [address] Neutrophils/100 WBC (Bld) 69.2 % Normal . The [facility] Comment on above: Performed By: #### P HOS, MG, BNP #### [facility] [address] [place] [address] NRBC% 0.0 /100{WBC} Normal 0-0.5 The [facility] Comment on above: Performed By: #### P HOS, MG, BNP #### [address] Platelet mean volume (Bld) [Entitic vol] 8.5 fL Normal 6.3-10.7 The [facility] Comment on above: Performed By: #### P HOS, MG, BNP #### [address] Platelets (Bld) [#/Vol] 218 10*3/uL Normal 150-450 The [facility] Comment on above: Performed By: #### P HOS, MG, BNP #### [address] RBC (Bld) [#/Vol] 3.71 10*6/uL Normal 3.60-5.[address] [facility] Comment on above: Performed By: #### P HOS, MG, BNP #### [address] WBC (Bld) [#/Vol] 6.4 10*3/uL Normal 3.8-11.6 [facility] Comment on above: Performed By: #### P HOS, MG, BNP #### [address] Comprehensive Metabolic Pane leander 02-23-2024 Albumin [Mass/Vol] 3.2 g/dL Low 3.5-5.7 [facility] Comment on above: Performed By: #### G LULS #### Point of Care testing , Albumin/Globulin [Mass ratio] 1.3 {ratio} Normal The [facility] Comment on above: Performed By: #### G LULS #### Point of Care testing , ALP [Catalytic activity/Vol] 67 U/L Normal 34-104 The [facility] Comment on above: Performed By: #### G LULS #### Point of Care testing , ALT [Catalytic activity/Vol] 19 U/L Normal 7-52 The [facility] Comment on above: Performed By: #### G LULS #### Point of Care testing , Anion gap [Moles/Vol] 9.4 mmol/L Normal 6.0-15.0 The [facility] Comment on above: Performed By: #### G LULS #### Point of Care testing , AST [Catalytic activity/Vol] 27 U/L Normal 13-39 The [facility] Comment on above: Performed By: #### G LULS #### Point of Care testing , Bilirubin [Mass/Vol] 0.6 mg/dL Normal 0.3-1.0 The [facility] Comment on above: Performed By: #### G LULS #### Point of Care testing , Calcium [Mass/Vol] 8.5 mg/dL Low 8.6-10.3 The [facility] Comment on above: Performed By: #### G LULS #### Point of Care testing , Chloride [Moles/Vol] 105 mmol/L Normal 98-107 The [facility] Comment on above: Performed By: #### G LULS #### Point of Care testing , CO2 [Moles/Vol] 28.8 mmol/L Normal 21.0-31.0 The [facility] Comment on above: Performed By: #### G LULS #### Point of Care testing , Creatinine [Mass/Vol] 0.48 mg/dL Low 0.60-1.20 The [facility] Comment on above: Performed By: #### G LULS #### Point of Care testing , Creatinine Clr Calc Pharmacy 61.73 Normal The [facility] Comment on above: Result Comment: PERF ORMED BY: [facility] [address] [place] [address] PATHOLOGIST 911 EMERGENCY DISPATCHER KAYLIE CHICAS M.D. Performed By: #### G LULS #### Point of Care testing , GFR/1.73 sq M.predicted MDRD (S/P/Bld) [Vol rate/Area] mL/min/{1.73_m2} Normal The [facility] Comment on above: Performed By: #### G LULS #### Point of Care testing , Globulin (S) [Mass/Vol] 2.5 g/dL Normal T he [facility] Comment on above: Performed By: #### G LULS #### Point of Care testing , Glucose [Mass/Vol] 159 mg/dL High 70-100 The [facility] Comment on above: Result Comment: Almo Glucose Reference Range is dependent on time and content of last meal. Glucose of more than 200 mg/dL in a nonstressed, ambulatory subject supports the diagnosis of Diabetes Mellitus. ADA recommended reference range Performed By: #### G LULS #### Point of Care testing , Potassium [Moles/Vol] 4.2 mmol/L Normal 3.5-5.1 The [facility] Comment on above: Performed By: #### G LULS #### Point of Care testing , Protein [Mass/Vol] 5.7 g/dL Low 6.4-8.9 The [facility] Comment on above: Performed By: #### G LULS #### Point of Care testing , Sodium [Moles/Vol] 139 mmol/L Normal 136-145 The [facility] Comment on above: Performed By: #### G LULS #### Point of Care testing , Urea nitrogen [Mass/Vol] 20 mg/dL Normal 7-25 The [facility] Comment on above: Performed By: #### G LULS #### Point of Care testing , Creatine Kinaseon 02-23-2024 CK [Catalytic activity/Vol] 255 U/L High 30-223 The [facility] Comment on above: Result Comment: PERF ORMED BY: [facility] [address] [place] [address] PATHOLOGIST 911 EMERGENCY DISPATCHER KAYLIE CHICAS M.D. Performed By: #### P HOS, MG, BNP #### [address] Glucose Poct Glucometerson 0 02-23-2024 Commemt1 Glu2: Cleaned Meter Normal The [facility] Comment on above: Result Comment: PERF ORMED BY: [place] [address] PATHOLOGIST 911 EMERGENCY DISPATCHER KAYLIE CHCIAS M.D. Performed By: #### P HOS, MG, BNP #### [place] [address] [place] Glucose [Mass/Vol] 180 mg/dL Normal The [facility] Comment on above: Result Comment: Almo om Glucose Reference Range is dependent on time and content of last meal. Glucose of more than 200 mg/dL in a nonstressed, ambulatory subject supports the diagnosis of Diabetes Mellitus. Performed By: #### P HOS, MG, BNP #### [address] Commemt1 Glu2: Cleaned Meter Normal The [facility] Comment on above: Result Comment: PERF ORMED BY: [place] [address] PATHOLOGIST 911 EMERGENCY DISPATCHER KAYLIE CHICAS M.D. Performed By: #### H S TROP #### [place] [address] [place] Glucose [Mass/Vol] 159 mg/dL Normal The [facility] Comment on above: Result Comment: Almo om Glucose Reference Range is dependent on time and content of last meal. Glucose of more than 200 mg/dL in a nonstressed, ambulatory subject supports the diagnosis of Diabetes Mellitus. Performed By: #### H S TROP #### [place] [address] [place] Glucose [Mass/Vol] 162 mg/dL Normal The [facility] Comment on above: Result Comment: Almo om Glucose Reference Range is dependent on time and content of last meal. Glucose of more than 200 mg/dL in a nonstressed, ambulatory subject supports the diagnosis of Diabetes Mellitus. PERFORMED BY: [place] [address] PATHOLOGIST 911 EMERGENCY DISPATCHER KAYLIE CHICAS M.D. Performed By: #### H S TROP #### [address] Commemt1 Glu2: Cleaned Meter Normal The [facility] Comment on above: Result Comment: PERF ORMED BY: [place] [address] PATHOLOGIST 911 EMERGENCY DISPATCHER KAYLIE CHICAS M.D. Performed By: #### P HOS, MG, BNP #### [address] Glucose [Mass/Vol] 156 mg/dL Normal The [facility] Comment on above: Result Comment: Almo Glucose Reference Range is dependent on time and content of last meal. Glucose of more than 200 mg/dL in a nonstressed, ambulatory subject supports the diagnosis of Diabetes Mellitus. Performed By: #### P HOS, MG, BNP #### [address] pelvis w conon 02-22-2024 CT pelvis w con [facility] [place] [address] [place] [address] CT Scan Report Signed Patient: Love Martinez MR#: [id number] 4 : 1940 Acct:[id number] Age/Sex: 83 / F ADM Date: 02/21/24 Loc: Room: [address] [place] [address] Type: ADM IN Attending Dr: Navi Torres MD Copies to: Navi Torres MD Ordering Provider: Navi Torres MD Date of Service: 02/21/24 CT/CT pelvis w con: Concern for R Groin Abscess, assess for infection CT PELVIS WITH INTRAVENOUS CONTRAST: CLINICAL HISTORY: Right groin abscess. COMPARISON: None TECHNIQUE: Spiral images were obtained through the pelvis following the administration of IV contrast. This CT exam was performed using one or more following dose reduction techniques: Auto mated exposure control, adjustment of the mA and/or kV according to patient size, or use of iterative reconstruction technique. FINDINGS: Evaluation is suboptimal due to streak hardware artifact from the patient's right hip prosthesis. Visualized renal parenchyma demonstrates a small cyst involving the inferior pole of the left kidney. Visualized small bowel loops appear nondilated. Visualized colon demonstrates sigmoid diverticulosis. Visualized portions of the urinary bladder appear unremarkable. The uterus appears to been removed. No adnexal mass. No free air, free fluid or lymphadenopathy. Iliac vasculature appears patent. Inguinal regions demonstrate no hernia, lymphadenopathy or fluid collection to suggest abscess. Osseous structures demonstrate degenerative change. There is grade 1 spondylolisthesis of L5 on S1 due to a combination of unilateral pars defect at the facet joint degenerative change. CT/CT pelvis w con IMPRESSION: NO ACUTE PROCESS IS SEEN. NO CT EVIDENCE OF RIGHT GROIN ABSCESS. Impression dictated by: Gaudencio Moreno Jr., D.O.02/22/2024 8:14 AM Dictation Location: [place] [address] Transcribed By: [facility] 02/22/24 0814 Dictated By: Gaudencio Moreno Jr, DO 02/22/24 0811 Signed By: 02/22/24 0814 Normal The [facility] Complete Blood Count Auto Di ffon 02-22-2024 Basophils (Bld) [#/Vol] 0.0 10*3/uL Normal 0.0-0.2 The [facility] Comment on above: Result Comment: PERF ORMED BY: [address] [place] [address] PATHOLOGIST 911 EMERGENCY DISPATCHER KAYLIE CHICAS M.D. Performed By: #### G LULS #### Point of Care testing , Basophils/100 WBC (Bld) 0.6 % Normal . T [facility] Comment on above: Performed By: #### G LULS #### Point of Care testing , Eosinophils (Bld) [#/Vol] 0.3 10*3/uL Normal 0.0-0.45 The [facility] Comment on above: Performed By: #### G LULS #### Point of Care testing , Eosinophils/100 WBC (Bld) 5.2 % Normal . The [facility] Comment on above: Performed By: #### G LULS #### Point of Care testing , Erythrocyte distribution width (RBC) [Ratio] 15.1 % Normal 11.9-15.3 The [facility] Comment on above: Performed By: #### G LULS #### Point of Care testing , Hematocrit (Bld) [Volume fraction] 31.7 % Low 34.0-46.4 The [facility] Comment on above: Performed By: #### G LULS #### Point of Care testing , Hemoglobin (Bld) [Mass/Vol] 10.6 g/dL Low 11.8-15.4 The [facility] Comment on above: Performed By: #### G LULS #### Point of Care testing , Lymphocytes (Bld) [#/Vol] 1.0 10*3/uL Normal 1.00-4.8 The [facility] Comment on above: Performed By: #### G LULS #### Point of Care testing , Lymphocytes/100 WBC (Bld) 15.6 % Normal . The [facility] Comment on above: Performed By: #### G LULS #### Point of Care testing , MCH (RBC) [Entitic mass] 29.5 pg Normal 24.7-34.3 The [facility] Comment on above: Performed By: #### G LULS #### Point of Care testing , MCV (RBC) [Entitic vol] 88.5 fL Normal 80-100 [facility] Comment on above: Performed By: #### G LULS #### Point of Care testing , Mean Corpuscular HGB Conc 33.4 g/dL Normal 32.0-35.0 The [facility] Comment on above: Performed By: #### G LULS #### Point of Care testing , Monocytes (Bld) [#/Vol] 0.6 10*3/uL Normal 0.0-0.8 The [facility] Comment on above: Performed By: #### G LULS #### Point of Care testing , Monocytes/100 WBC (Bld) 9.8 % Normal . [facility] Comment on above: Performed By: #### G LULS #### Point of Care testing , Neutrophils (Bld) [#/Vol] 4.5 10*3/uL Normal 1.8-7.7 The [facility] Comment on above: Performed By: #### G LULS #### Point of Care testing , Neutrophils/100 WBC (Bld) 68.8 % Normal . The [facility] Comment on above: Performed By: #### G LULS #### Point of Care testing , NRBC% 0.0 /100{WBC} Normal 0-0.5 The [facility] Comment on above: Performed By: #### G LULS #### Point of Care testing , Platelet mean volume (Bld) [Entitic vol] 8.5 fL Normal 6.3-10.7 The [facility] Comment on above: Performed By: #### G LULS #### Point of Care testing , Platelets (Bld) [#/Vol] 212 10*3/uL Normal 150-450 The [facility] Comment on above: Performed By: #### G LULS #### Point of Care testing , RBC (Bld) [#/Vol] 3.58 10*6/uL Low 3.60-5.[address] [facility] Comment on above: Performed By: #### G LULS #### Point of Care testing , WBC (Bld) [#/Vol] 6.5 10*3/uL Normal 3.8-11.6 The [facility] Comment on above: Performed By: #### G LULS #### Point of Care testing , Comprehensive Metabolic Pane leander 02-22-2024 Albumin [Mass/Vol] 3.3 g/dL Low 3.5-5.7 The [facility] Comment on above: Performed By: #### P HOS, MG, BNP #### [facility] [address] [place] [address] [place] Albumin/Globulin [Mass ratio] 1.2 {ratio} Normal The [facility] Comment on above: Performed By: #### P HOS, MG, BNP #### [facility] [address] [place] [id number] [place] ALP [Catalytic activity/Vol] 66 U/L Normal 34-104 The [facility] Comment on above: Performed By: #### P HOS, MG, BNP #### [facility] [address] [place] [address] [place] ALT [Catalytic activity/Vol] 17 U/L Normal 7-52 The [facility] Comment on above: Performed By: #### P HOS, MG, BNP #### [facility] [address] [place] [address] [place] Anion gap [Moles/Vol] 9.4 mmol/L Normal 6.0-15.0 The [facility] Comment on above: Performed By: #### P HOS, MG, BNP #### [facility] [address] AST [Catalytic activity/Vol] 33 U/L Normal 13-39 The [facility] Comment on above: Performed By: #### P HOS, MG, BNP #### [facility] [address] [place] [address] [place] Bilirubin [Mass/Vol] 0.6 mg/dL Normal 0.3-1.0 The [facility] Comment on above: Performed By: #### P HOS, MG, BNP #### [facility] [address] [place] [address] [place] Calcium [Mass/Vol] 8.4 mg/dL Low 8.6-10.3 The [facility] Comment on above: Performed By: #### P HOS, MG, BNP #### [facility] [address] [place] [address] [place] Chloride [Moles/Vol] 105 mmol/L Normal 98-107 The [facility] Comment on above: Performed By: #### P HOS, MG, BNP #### [facility] [address] [place] [address] [place] CO2 [Moles/Vol] 29.3 mmol/L Normal 21.0-31.0 The [facility] Comment on above: Performed By: #### P HOS, MG, BNP #### [facility] [address] [place] [address] [place] Creatinine [Mass/Vol] 0.53 mg/dL Low 0.60-1.20 The [facility] Comment on above: Performed By: #### P HOS, MG, BNP #### [address] Creatinine Clr Calc Pharmacy 61.63 Normal The [facility] Comment on above: Result Comment: PERF ORMED BY: [place] [address] PATHOLOGIST 911 EMERGENCY DISPATCHER KAYLIE CHICAS M.D. Performed By: #### P HOS, MG, BNP #### [place] [address] [place] GFR/1.73 sq M.predicted MDRD (S/P/Bld) [Vol rate/Area] mL/min/{1.73_m2} Normal The [facility] Comment on above: Performed By: #### P HOS, MG, BNP #### [address] Globulin (S) [Mass/Vol] 2.8 g/dL Normal T he [facility] Comment on above: Performed By: #### P HOS, MG, BNP #### [address] Glucose [Mass/Vol] 161 mg/dL High 70-100 The [facility] Comment on above: Result Comment: Almo Glucose Reference Range is dependent on time and content of last meal. Glucose of more than 200 mg/dL in a nonstressed, ambulatory subject supports the diagnosis of Diabetes Mellitus. ADA recommended reference range Performed By: #### P HOS, MG, BNP #### [address] Potassium [Moles/Vol] 3.7 mmol/L Normal 3.5-5.1 The [facility] Comment on above: Performed By: #### P HOS, MG, BNP #### [address] Protein [Mass/Vol] 6.1 g/dL Low 6.4-8.9 The [facility] Comment on above: Performed By: #### P HOS, MG, BNP #### [address] [address] [place] Sodium [Moles/Vol] 140 mmol/L Normal 136-145 [facility] Comment on above: Performed By: #### P HOS, MG, BNP #### [address] Urea nitrogen [Mass/Vol] 25 mg/dL Normal 7-25 The [facility] Comment on above: Performed By: #### P HOS, MG, BNP #### [address] Creatine Kinaseon 02-22-2024 CK [Catalytic activity/Vol] 464 U/L High 30-223 The [facility] Comment on above: Result Comment: PERF ORMED BY: [place] [address] PATHOLOGIST 911 EMERGENCY DISPATCHER KAYLIE CHICAS M.D. Performed By: #### P HOS, MG, BNP #### [address] ECH echo transthoracicon ECH echo transthoracic [facility] [place] [address] [place] [address] Echocardiogram Signed Patient: Love Martinez MR#: [id number] 4 : 1940 Acct:[id number] Age/Sex: 83 / F ADM Date: 02/21/24 Loc: Room: [address] [place] [address] Type: ADM IN Attending Dr: Navi Torres MD Ordering Provider: Ana Lilia May MD Date of Service: 02/21/24 ECH/ECH echo transthoracic: Elevated troponin Copies to: Scotty Correia MD, [facility] [place] L[place] May MD Weight: 178 lb Performed By: ZAINA Hagen BSA: 2.0 m2 BP: 126/79 mmHg HR: 87 Reason For Study: Elevated troponin History: Hypertension,DM,A. Fib. Interpretation Summary The left ventricular size, thickness and function are normal Ejection Fraction = 60-65%. The left ventricular wall motion is normal. The left atrium appears mildly dilated. There is mild mitral regurgitation. The patient was in atrial fibrillation through out the study. There is no prior echocardiogram noted for this patient. Procedure/Quality: A two-dimensional transthoracic echocardiogram with color flow and Doppler was performed. The study was technically good in quality. There is no prior echocardiogram noted for this patient. Left Ventricle: The left ventricular size, thickness and function are normal. Ejection Fraction = 60-65%. The left ventricular wall motion is normal. Left Atrium: The left atrium appears mildly dilated. The atrial septum appears normal. Right Atrium: The right atrium is mildly dilated. Right Ventricle: The right ventricular size, thickness and function are normal. Aortic Valve: The aortic valve is trileaflet. The aortic valve is mildly sclerotic. Mitral Valve: The mitral valve is mildly sclerotic. There is mild mitral regurgitation. Tricuspid Valve: The tricuspid valve is normal in structure. There is trace tricuspid regurgitation. Pulmonic Valve: The pulmonic valve is not well seen, but is grossly normal. Arteries: The aortic root is normal size. Pericardium/Pleura: No pericardial effusion seen. There is no pleural effusion. IVC/Hepatic Veins: The IVC is normal in size with an inspiratory collapse of greater then 50%, suggesting normal right atrial pressure. Miscellaneous: No thrombus, vegetation or mass is seen. The patient was in atrial fibrillation through out the study. Measurements with Normals IVSd: 1.2 cm (0.7-1.1 cm)LVIDd: 4.8 cm (3.7-5.4 cm) LVPWd: 1.1 cm (0.7-1.1 cm)LVIDs: 3.7 cm (2.3-3.6 cm) LA dimension: 4.8 cm (2.3-4.0 cm)Ao root diam: 2.9 cm(2.0-3.6 cm) asc Aorta Diam: 3.1 cm(2.1-3.4cm) Doppler with Normals LV V1 max: 69.0 cm/sec(0.7-1.7m/s)MV E max walter: 89.5 cm/sec(0.8-1.3m/s) MMode/2D Measurements Calculations RVDd: 3.1 cm RV Base: 4.2 cm FS: 24.2 % Ao root area: RV Mid: 2.3 cm EDV(Teich): 6.7 cm2 RV Length: 5.7 cm 109.1 ml ESV(Teich): 56.8 ml EF(Teich): 48.0 % __ LVOT diam: 1.8 cm LVLd ap4: 6.5 cm SV(MOD-sp4): LAV(MOD-sp4): LVOT area: 2.7 cm2 EDV(MOD-sp4): 33.3 ml 134.0 ml 48.8 ml LAV(MOD-sp2): LVLs ap4: 5.1 cm 128.0 ml ESV(MOD-sp4): 15.5 ml EF(MOD-sp4): 68.2 % __ LA A2 area: 35.8 cm2 LA A4 area: 37.6 cm2 LA length (vol): 7.9 cm LA vol: 144.6 ml LA vol index: 73.6 ml/m2 Doppler Measurements Calculations MV dec time: MV V2 max: MV dec slope: Ao V2 max: 0.17 sec 89.5 cm/sec 513.8 cm/sec2 166.7 cm/sec MV max PG: Ao max P.0 mmHg 11.1 mmHg MV V2 mean: Ao mean P.8 cm/sec 5.5 mmHg MV mean PG: Ao V2 mean: 0.99 mmHg 109.8 cm/sec MV V2 VTI: 19.7 cm Ao V2 VTI: 30.1 cm MVA(VTI): 1.9 cm2 DANNY(I,D): 1.2 cm2 DANNY(V,D): 1.1 cm2 __ LV V1 max PG: MR max walter: TV max P.0 mmHg TR max walter: 1.9 mmHg 466.9 cm/sec 270.1 cm/sec LV V1 mean PG: MR max PG: TR max P.92 mmHg 87.2 mmHg 29.2 mmHg LV V1 mean: 43.8 cm/sec LV V1 VTI: 14.0 cm Transcribed By: MONIQUE Performed At: 02/22/24 1158 Signed By: Scotty Correia MD, [facility] 02/22/241945 Normal [facility] Glucose Poct Glucometerson 0 02-22-2024 Commemt1 Glu2: Cleaned Meter Normal The [facility] Comment on above: Result Comment: PERF ORMED BY: [place] [address] PATHOLOGIST 911 EMERGENCY DISPATCHER KAYLIE CHICAS M.D. Performed By: #### G LULS #### Point of Care testing , Glucose [Mass/Vol] 233 mg/dL Normal The [facility] Comment on above: Result Comment: Almo om Glucose Reference Range is dependent on time and content of last meal. Glucose of more than 200 mg/dL in a nonstressed, ambulatory subject supports the diagnosis of Diabetes Mellitus. Performed By: #### G LULS #### Point of Care testing , Glucose [Mass/Vol] 160 mg/dL Normal [facility] Comment on above: Result Comment: Almo om Glucose Reference Range is dependent on time and content of last meal. Glucose of more than 200 mg/dL in a nonstressed, ambulatory subject supports the diagnosis of Diabetes Mellitus. PERFORMED BY: [place] [address] PATHOLOGIST 911 EMERGENCY DISPATCHER KAYLIE CHICAS M.D. Performed By: #### G LULS #### Point of Care testing , Commemt1 Glu2: Cleaned Meter Normal The [facility] Comment on above: Result Comment: PERF ORMED BY: [place] [address] PATHOLOGIST 911 EMERGENCY DISPATCHER KAYLIE CHICAS M.D. Performed By: #### P HOS, MG, BNP #### [address] Glucose [Mass/Vol] 158 mg/dL Normal [facility] Comment on above: Result Comment: Almo om Glucose Reference Range is dependent on time and content of last meal. Glucose of more than 200 mg/dL in a nonstressed, ambulatory subject supports the diagnosis of Diabetes Mellitus. Performed By: #### P HOS, MG, BNP #### [address] Glucose [Mass/Vol] 171 mg/dL Normal [facility] Comment on above: Result Comment: Almo Glucose Reference Range is dependent on time and content of last meal. Glucose of more than 200 mg/dL in a nonstressed, ambulatory subject supports the diagnosis of Diabetes Mellitus. PERFORMED BY: [place] [address] PATHOLOGIST 911 EMERGENCY DISPATCHER KAYLIE CHICAS M.D. Performed By: #### G LUARIELLE #### Point of Care testing , Aerobic cultureOrdered By: Cleopatra Torres on 02-21-2024 Bacteria identified Aer cx Nom (Unsp spec) 2 Days [facility] Cholesterol [Mass/volume] in Serum or PlasmaOrdered By: Cash Abreu on 02-21-2024 Cholesterol [Mass/Vol] 138 mg/dL Low 140-200 [facility] Comment on above: Chol less than 200 m g/dl low riskChol 201-239 mg/dl borderline riskChol 240 mg/dl and greater high risk Order Comment: FASTI NG N Result Comment: Chol less than 200 mg/dl low risk Chol 201-239 mg/dl borderline risk Chol 240 mg/dl and greater high risk Performed By: #### G LULS #### Point of Care testing , Cholesterol in LDL Calc [Mas s/Vol]Ordered By: Cash Abreu on 02-21-2024 Cholesterol in LDL [Mass/Vol] 73 mg/dL 0-100 [facility] Comment on above: LDL ATP III CLASSIFI CATIONLDL less than 100 mg/dL OptimalLDL 100-129 mg/dL Near or above optimalLDL 130-159 mg/dL Borderline highLDL 160-189 mg/dL HighLDL greater than 189 mg/dL Very high Cholesterol in VLDL Calc [Ma ss/Vol]Ordered By: Cash Abreu on 02-21-2024 Cholesterol in VLDL [Mass/Vol] 19 mg/dL [facility] Complete Blood Count Auto Di ffon 02-21-2024 Basophils (Bld) [#/Vol] 0.0 10*3/uL Normal 0.0-0.2 [facility] Comment on above: Result Comment: PERF ORMED BY: [facility] [address] PATHOLOGIST 911 EMERGENCY DISPATCHER KAYLIE CHICAS M.D. Performed By: #### G LULS #### Point of Care testing , Basophils/100 WBC (Bld) 0.4 % Normal . [facility] Comment on above: Performed By: #### G LULS #### Point of Care testing , Eosinophils (Bld) [#/Vol] 0.3 10*3/uL Normal 0.0-0.45 [facility] Comment on above: Performed By: #### G LULS #### Point of Care testing , Eosinophils/100 WBC (Bld) 2.6 % Normal . [facility] Comment on above: Performed By: #### G LULS #### Point of Care testing , Erythrocyte distribution width (RBC) [Ratio] 15.0 % Normal 11.9-15.3 The [facility] Comment on above: Performed By: #### G LULS #### Point of Care testing , Hematocrit (Bld) [Volume fraction] 32.0 % Low 34.0-46.4 [facility] Comment on above: Performed By: #### G LULS #### Point of Care testing , Hemoglobin (Bld) [Mass/Vol] 10.8 g/dL Low 11.8-15.4 [facility] Comment on above: Performed By: #### G LULS #### Point of Care testing , Lymphocytes (Bld) [#/Vol] 1.1 10*3/uL Normal 1.00-4.8 [facility] Comment on above: Performed By: #### G LULS #### Point of Care testing , Lymphocytes/100 WBC (Bld) 11.0 % Normal . [facility] Comment on above: Performed By: #### G LULS #### Point of Care testing , MCH (RBC) [Entitic mass] 29.7 pg Normal 24.7-34.3 [facility] Comment on above: Performed By: #### G LULS #### Point of Care testing , MCV (RBC) [Entitic vol] 88.1 fL Normal 80-100 [facility] Comment on above: Performed By: #### G LULS #### Point of Care testing , Mean Corpuscular HGB Conc 33.8 g/dL Normal 32.0-35.0 [facility] Comment on above: Performed By: #### G LULS #### Point of Care testing , Monocytes (Bld) [#/Vol] 0.9 10*3/uL High 0.0-0.8 [facility] Comment on above: Performed By: #### G LULS #### Point of Care testing , Monocytes/100 WBC (Bld) 9.1 % Normal . [facility] Comment on above: Performed By: #### G LULS #### Point of Care testing , Neutrophils (Bld) [#/Vol] 7.7 10*3/uL Normal 1.8-7.7 [facility] Comment on above: Performed By: #### G LULS #### Point of Care testing , Neutrophils/100 WBC (Bld) 76.9 % Normal . [facility] Comment on above: Performed By: #### G LULS #### Point of Care testing , NRBC% 0.2 /100{WBC} Normal 0-0.5 The [facility] Comment on above: Performed By: #### G LULS #### Point of Care testing , Platelet mean volume (Bld) [Entitic vol] 8.6 fL Normal 6.3-10.7 The [facility] Comment on above: Performed By: #### G LULS #### Point of Care testing , Platelets (Bld) [#/Vol] 235 10*3/uL Normal 150-450 [facility] Comment on above: Performed By: #### G LULS #### Point of Care testing , RBC (Bld) [#/Vol] 3.63 10*6/uL Normal 3.60-5.[address] [facility] Comment on above: Performed By: #### G LULS #### Point of Care testing , WBC (Bld) [#/Vol] 10.1 10*3/uL Normal 3.8-11.[address] [facility] Comment on above: Performed By: #### G LULS #### Point of Care testing , Comprehensive Metabolic Pane leander 02-21-2024 Albumin [Mass/Vol] 3.5 g/dL Normal 3.5-5.7 [facility] Comment on above: Order Comment: FASTI NG N Performed By: #### G LULS #### Point of Care testing , Albumin/Globulin [Mass ratio] 1.2 {ratio} Normal [facility] Comment on above: Order Comment: FASTI NG N Performed By: #### G LULS #### Point of Care testing , ALP [Catalytic activity/Vol] 69 U/L Normal 34-104 [facility] Comment on above: Order Comment: FASTI NG N Performed By: #### G LULS #### Point of Care testing , ALT [Catalytic activity/Vol] 18 U/L Normal 7-52 [facility] Comment on above: Order Comment: FASTI NG N Performed By: #### G LULS #### Point of Care testing , Anion gap [Moles/Vol] 10.4 mmol/L Normal 6.0-15.0 [facility] Comment on above: Order Comment: FASTI NG N Performed By: #### G LULS #### Point of Care testing , AST [Catalytic activity/Vol] 48 U/L High 13-39 [facility] Comment on above: Order Comment: FASTI NG N Performed By: #### G LULS #### Point of Care testing , Bilirubin [Mass/Vol] 0.8 mg/dL Normal 0.3-1.0 [facility] Comment on above: Order Comment: FASTI NG N Performed By: #### G LULS #### Point of Care testing , Calcium [Mass/Vol] 8.8 mg/dL Normal 8.6-10.3 [facility] Comment on above: Order Comment: FASTI NG N Performed By: #### G LULS #### Point of Care testing , Chloride [Moles/Vol] 104 mmol/L Normal 98-107 [facility] Comment on above: Order Comment: FASTI NG N Performed By: #### G LULS #### Point of Care testing , CO2 [Moles/Vol] 28.3 mmol/L Normal 21.0-31.0 The [facility] Comment on above: Order Comment: FASTI NG N Performed By: #### G LULS #### Point of Care testing , Creatinine [Mass/Vol] 0.66 mg/dL Normal 0.60-1.20 [facility] Comment on above: Order Comment: FASTI NG N Performed By: #### G LULS #### Point of Care testing , Creatinine Clr Calc Pharmacy 61.32 Normal [facility] Comment on above: Order Comment: FASTI NG N Performed By: #### G LULS #### Point of Care testing , GFR/1.73 sq M.predicted MDRD (S/P/Bld) [Vol rate/Area] mL/min/{1.73_m2} Normal [facility] Comment on above: Order Comment: FASTI NG N Performed By: #### G LULS #### Point of Care testing , Globulin (S) [Mass/Vol] 2.9 g/dL Normal T [facility] Comment on above: Order Comment: FASTI NG N Performed By: #### G LULS #### Point of Care testing , Glucose [Mass/Vol] 155 mg/dL High 70-100 [facility] Comment on above: Order Comment: FASTI NG N Result Comment: Almo Glucose Reference Range is dependent on time and content of last meal. Glucose of more than 200 mg/dL in a nonstressed, ambulatory subject supports the diagnosis of Diabetes Mellitus. ADA recommended reference range Performed By: #### G LULS #### Point of Care testing , Potassium [Moles/Vol] 3.7 mmol/L Normal 3.5-5.1 [facility] Comment on above: Order Comment: FASTI NG N Performed By: #### G LULS #### Point of Care testing , Protein [Mass/Vol] 6.4 g/dL Normal 6.4-8.9 [facility] Comment on above: Order Comment: FASTI NG N Performed By: #### G LULS #### Point of Care testing , Sodium [Moles/Vol] 139 mmol/L Normal 136-145 [facility] Comment on above: Order Comment: FASTI NG N Performed By: #### G LULS #### Point of Care testing , Urea nitrogen [Mass/Vol] 30 mg/dL High 7-25 [facility] Comment on above: Order Comment: FASTI NG N Performed By: #### G LULS #### Point of Care testing , ECG 12 lead ECGon 02-21-2024 ECG 12 lead ECG [facility] [place] [address] Electrocardiograph Report Signed Patient: Love Martinez MR#: [id number] [birth year] : 1940 Acct:[id number] Age/Sex: 83 / F ADM Date: 02/20/24 Loc: Room: [address] [place] [address] Type: ADM INOo Attending Dr: Navi Torres MD Ordering Provider: Cash Abreu MD Date of Service: 02/21/24 ECG/ECG 12 lead ECG: NSTEMI Copies to: Test Reason : Blood Pressure : / mmHG Vent. Rate : 090 BPM Atrial Rate : 241 BPM P-R Int : 000 ms QRS Dur : 084 ms QT Int : 378 ms P-R-T Axes : 000 004 047 degrees QTc Int : 462 ms Atrial fibrillation Voltage criteria for left ventricular hypertrophy Nonspecific ST abnormality Abnormal ECG No previous ECGs available Confirmed by HAYLEY CASTRO [facility], SCOTTY ([id number]) on 02/21/2024 1:27:39 PM Referred By: Electronically Signed By:SCOTTY CORREIA MD [facility] Transcribed By: MUS Signed By Scotty Correia MD, [facility] 02/21/24 1327 Normal [facility] Glucose Poct Glucometerson 0 02-21-2024 Glucose [Mass/Vol] 200 mg/dL Normal [facility] Comment on above: Result Comment: Almo om Glucose Reference Range is dependent on time and content of last meal. Glucose of more than 200 mg/dL in a nonstressed, ambulatory subject supports the diagnosis of Diabetes Mellitus. PERFORMED BY: [place] [address] PATHOLOGIST 911 EMERGENCY DISPATCHER KAYLIE CHICAS M.D. Performed By: #### G LULS #### Point of Care testing , Glucose [Mass/Vol] 191 mg/dL Normal [facility] Comment on above: Result Comment: Almo om Glucose Reference Range is dependent on time and content of last meal. Glucose of more than 200 mg/dL in a nonstressed, ambulatory subject supports the diagnosis of Diabetes Mellitus. PERFORMED BY: [place] [address] PATHOLOGIST 911 EMERGENCY DISPATCHER KAYLIE CHICAS M.D. Performed By: #### P HOS, MG, BNP #### [address] Glucose [Mass/Vol] 226 mg/dL Normal [facility] Comment on above: Result Comment: Almo om Glucose Reference Range is dependent on time and content of last meal. Glucose of more than 200 mg/dL in a nonstressed, ambulatory subject supports the diagnosis of Diabetes Mellitus. PERFORMED BY: [place] [address] PATHOLOGIST 911 EMERGENCY DISPATCHER KAYLIE CHICAS M.D. Performed By: #### G LULS #### Point of Care testing , Glucose [Mass/Vol] 122 mg/dL Normal [facility] Comment on above: Result Comment: Almo om Glucose Reference Range is dependent on time and content of last meal. Glucose of more than 200 mg/dL in a nonstressed, ambulatory subject supports the diagnosis of Diabetes Mellitus. PERFORMED BY: [place] [address] PATHOLOGIST 911 EMERGENCY DISPATCHER KAYLIE CHICAS M.D. Performed By: #### G LULS #### Point of Care testing , Lipid Panelon 02-21-2024 LDL Cholesterol,Calculated 73 mg/dL Normal 0-100 The [facility] Comment on above: Order Comment: FASTI NG N Result Comment: LDL ATP III CLASSIFICATION LDL less than 100 mg/dL Optimal LDL 100-129 mg/dL Near or above optimal LDL 130-159 mg/dL Borderline high LDL 160-189 mg/dL High LDL greater than 189 mg/dL Very high Performed By: #### G LULS #### Point of Care testing , Triglyceride w/Reflex 98 mg/dL Normal 0-149 [facility] Comment on above: Order Comment: FASTI NG N Result Comment: TRIG ATP III CLASSIFICATION TRIG less than 150 mg/dL Normal TRIG 150-199 mg/dL Borderline high TRIG 200-500 mg/dL High TRIG greater than 500 mg/dL Very high Standard traceable to the Center for Disease Conrtrol and Prevention (CDC) test method. Performed By: #### G LULS #### Point of Care testing , VLDL CHOLESTEROL 19 mg/dL Normal [facility] Comment on above: Order Comment: FASTI NG N Performed By: #### G LULS #### Point of Care testing , Serum or plasma high density lipoprotein (HDL) cholesterol measurementOrdered By: Cash Abreu on 02-21-2024 Cholesterol in HDL [Mass/Vol] 45 mg/dL Normal 23-92 [facility] Comment on above: HDL CHOL ATP-III CLA SSIFICATION Cardiovascular RiskHDL > or equal to 60 mg/dL LOWHDL < 40 mg/dL HIGH Order Comment: FASTI NG N Result Comment: HDL CHOL ATP-III CLASSIFICATION Cardiovascular Risk HDL > or equal to 60 mg/dL LOW HDL < 40 mg/dL HIGH Performed By: #### G LULS #### Point of Care testing , Serum or plasma total choles terol/high density lipoprotein (HDL) cholesterol mass ratOrdered By: Cash Abreu on 02-21-2024 Cholesterol.total/Choles terol in HDL [Mass ratio] 3.1 {ratio} Normal <5.0 [facility] Comment on above: Order Comment: FASTI NG N Result Comment: PERF ORMED BY: [address] [place] [address] PATHOLOGIST 911 EMERGENCY DISPATCHER KAYLIE CHICAS M.D. Performed By: #### G LULS #### Point of Care testing , Superficial Wound Cultureon 02-21-2024 Superficial Wound Culture Light Normal Skin Teressa 2 Days PERFORMED BY: [place] [id number] PATHOLOGIST 911 EMERGENCY DISPATCHER KAYLIE CHICAS M.D. Normal [facility] Comment on above: Performed By: #### P HOS, MG, BNP #### [place] [id number] [facility] Triglyceride [Mass/volume] i n Serum or PlasmaOrdered By: Cash Abreu on 02-21-2024 Triglyceride [Mass/Vol] 98 mg/dL 0-149 [facility] Comment on above: TRIG ATP III CLASSIF ICATIONTRIG less than 150 mg/dL NormalTRIG 150-199 mg/dL Borderline highTRIG 200-500 mg/dL High TRIG greater than 500 mg/dL Very highStandard traceable to the Center for Disease Conrtrol and Prevention (CDC) test method. Troponin I High Sensitivityo n 02-21-2024 Troponin I High Sensitivity 29.6 pg/mL High 0.0-15.0 [facility] Comment on above: Result Comment: PERF ORMED BY: [place] [address] PATHOLOGIST 911 EMERGENCY DISPATCHER KAYLIE CHICAS M.D. Performed By: #### P HOS, MG, BNP #### [place] [id number] [facility] Troponin I.cardiac [Mass/vol ume] in Serum or Plasma by Detection limit <= 0.01 ng/Ordered By: Cash Abreu on 02-21-2024 Troponin I.cardiac DL <= 0.01 ng/mL [Mass/Vol] 29.6 pg/mL High 0.0-15.0 [facility] BNP ser/plasOrdered By: Layton Abreu on 02-20-2024 Natriuretic peptide B (Bld) [Mass/Vol] 380.0 pg/mL High 5-100 [facility] Comment on above: Result Comment: PERF ORMED BY: [place] [address] PATHOLOGIST 911 EMERGENCY DISPATCHER KAYLIE CHICAS M.D. Performed By: #### P HOS, MG, BNP #### [address] Magnesium [Mass/volume] in S rose or PlasmaOrdered By: Cash Abreu on 02-20-2024 Magnesium [Mass/Vol] 1.5 mg/dL Low 1.9-2.7 [facility] Comment on above: Result Comment: PERF ORMED BY: [place] [address] PATHOLOGIST 911 EMERGENCY DISPATCHER KAYLIE CHICAS M.D. Performed By: #### P HOS, MG, BNP #### [address] Phosphate [Mass/volume] in S rose or PlasmaOrdered By: Cash Arbeu on 02-20-2024 Phosphate [Mass/Vol] 3.1 mg/dL Normal 2.5-4.5 [facility] Comment on above: Performed By: #### P HOS, MG, BNP #### [address] Troponin I High Sensitivityo n 02-20-2024 Troponin I High Sensitivity 35.6 pg/mL High 0.0-15.0 [facility] Comment on above: Result Comment: PERF ORMED BY: [place] [address] PATHOLOGIST 911 EMERGENCY DISPATCHER KAYLIE CHICAS M.D. Performed By: #### H S TROP #### [address] CBC W Auto Differential pane l (Bld)on 10-12-2023 Basophils (Bld) [#/Vol] 62 10*3/uL N [facility] Basophils/100 WBC (Bld) 0.7 % N [facility] Eosinophils (Bld) [#/Vol] 249 10*3/uL [facility] Eosinophils/100 WBC (Bld) 2.8 % [facility] Erythrocyte distribution width (RBC) [Ratio] 13.5 % 11.0 - 15.0 % [facility] Hematocrit (Bld) [Volume fraction] 38.0 % 35.0 - 45.0 % [facility] Hemoglobin (Bld) [Mass/Vol] 12.7 g/dL 11.7 - 15.5 g/dL [facility] Lymphocytes (Bld) [#/Vol] 1264 10*3/uL [facility] Lymphocytes/100 WBC (Bld) 14.2 % [facility] MCH (RBC) [Entitic mass] 29.7 pg 27. 0 - 33.0 pg [facility] MCHC (RBC) [Mass/Vol] 33.4 g/dL 32.0 - 36.0 g/dL [facility] MCV (RBC) [Entitic vol] 89.0 fL 80.0 - 100.0 fL [facility] Monocytes (Bld) [#/Vol] 676 10*3/uL [facility] Monocytes/100 WBC (Bld) 7.6 % N [facility] Neutrophils (Bld) [#/Vol] 6648 10*3/uL [facility] Neutrophils/100 WBC (Bld) 74.7 % [facility] Platelet mean volume (Bld) [Entitic vol] 11.0 fL 7.5 - 12.5 fL [facility] Platelets (Bld) [#/Vol] 283 10*3/uL [facility] RBC (Bld) [#/Vol] 4.27 10*6/uL [facility] WBC (Bld) [#/Vol] 8.9 10*3/uL [facility] Laboratory - Chemistry and C hemistry - challengeon 10-12-2023 25-hydroxyvitamin D3 [Mass/Vol] 49 ng/mL 30 - 100 ng/mL [facility] Comment on above: Vitamin D Status 25- [place] Vitamin D: Deficiency: <20 ng/mL Insufficiency: 20 - 29 ng/mL Optimal: > or = 30 ng/mL For 25-OH Vitamin D testing on patients on D2-supplementation and patients for whom quantitation of D2 and D3 fractions is required, the [facility] 25-OH VIT D, (D2,D3), LC/MS/MS is recommended: order code 76916 (patients >2yrs). See Note 1 Note 1 For additional information, please refer to http://education.Tyl[employer] Mobile/faq/GPY869 (This link is being provided for informational/ educational purposes only.) Albumin [Mass/Vol] 4.1 g/dL 3.6 - 5.1 g/dL [facility] Albumin/Globulin [Mass ratio] 1.4 {ratio} [facility] ALP [Catalytic activity/Vol] 76 U/L 37 - 153 U/L [facility] ALT [Catalytic activity/Vol] 11 U/L 6 - 29 U/L [facility] AST [Catalytic activity/Vol] 17 U/L 10 - 35 U/L [facility] Bilirubin [Mass/Vol] 0.8 mg/dL 0.2 - 1 .2 mg/dL [facility] Calcium [Mass/Vol] 9.6 mg/dL 8.6 - 10. 4 mg/dL [facility] Chloride [Moles/Vol] 98 mmol/L 98 - 11 0 mmol/L [facility] CO2 [Moles/Vol] 30 mmol/L 20 - 32 mmol/L [facility] Creatinine [Mass/Vol] 0.55 mg/dL Low 0.60 - 0.95 mg/dL [facility] GFR/1.73 sq M.predicted among non-blacks MDRD (S/P/Bld) [Vol rate/Area] 91 mL/min/{1.73_m2} > OR = 60 mL/min/1.73m 2 [facility] Globulin (S) [Mass/Vol] 3.0 g/dL N [facility] Glucose [Mass/Vol] 130 mg/dL High 65 - 99 mg/dL [facility] Comment on above: Fasting reference interval For someone without known diabetes, a glucose value >125 mg/dL indicates that they may have diabetes and this should be confirmed with a follow-up test. Potassium [Moles/Vol] 3.6 mmol/L 3.5 - 5.3 mmol/L [facility] Protein [Mass/Vol] 7.1 g/dL 6.1 - 8.1 g/dL [facility] Sodium [Moles/Vol] 139 mmol/L 135 - 146 mmol/L [facility] TSH Qn 2.19 m[IU]/L [facility] Urea nitrogen [Mass/Vol] 20 mg/dL 7 - 25 mg/d L [facility] Urea nitrogen/Creatinine [Mass ratio] 36 mg/mg High [facility] Laboratory - Hematology and Cell countson 10-12-2023 HbA1c (Bld) [Mass fraction] 6.6 % [facility] [place] Comment on above: For someone without known diabetes, a hemoglobin A1c value of 6.5% or greater indicates that they may have diabetes and this should be confirmed with a follow-up test. For someone with known diabetes, a value <7% indicates that their diabetes is well controlled and a value greater than or equal to 7% indicates suboptimal control. A1c targets should be individualized based on duration of diabetes, age, comorbid conditions, and other considerations. Currently, no consensus exists regarding use of hemoglobin A1c for diagnosis of diabetes for children. HbA1c performed on RAP Index platform. Effective 08/22/23 a change in test platforms may have shifted HbA1c results compared to historical results. Lipid 1996 panelon Cholesterol [Mass/Vol] 172 mg/dL [facility] - 200 mg/dL [facility] Cholesterol in HDL [Mass/Vol] 58 mg/dL > OR = 50 [facility] Cholesterol in LDL [Mass/Vol] 91 mg/dL mg/dL (calc) [facility] Comment on above: Reference range: <10 0 Desirable range <100 mg/dL for primary prevention; <70 mg/dL for patients with CHD or diabetic patients with > or = 2 CHD risk factors. LDL-C is now calculated using the Alejandro-Gautam calculation, which is a validated novel method providing better accuracy than the Friedewald equation in the estimation of LDL-C. Alejandro SS et al. JALEEL. 2013;310(19): 2286-6701 (http://education.Tylr Mobile/faq/TNV851) Cholesterol non HDL [Mass/Vol] 114 mg/dL [facility] [place] Comment on above: For patients with di abetes plus 1 major ASCVD risk factor, treating to a non-HDL-C goal of <100 mg/dL (LDL-C of <70 mg/dL) is considered a therapeutic option. Cholesterol.total/Choles terol in HDL [Mass ratio] 3.0 {ratio} [facility] [place] Triglyceride [Mass/Vol] 124 mg/dL [facility] - 150 mg/dL [facility] No Panel Informationon 10-12 Interpretation and review of laboratory results Abnormal [facility] COLLECTION KIT GIVEN TO PATIENT. PATIENT ADVISED TO RETURN. [employer] Organization Information Site ID: QPT Name: [facility] Address: [facility] [address] , [address] [place] [address] Director: Erik Garcia MD [facility] SCREENING MAMMOGRAM W/CARLOS, BILATERAL*on 06-08-2022 SCREENING MAMMOGRAM W/CARLOS, BILATERAL* COMPARISON: Dating back to April 05, 2021 and March 31, 2020. TECHNIQUE: 2D and 3D Tomosynthesis of the right and left breasts was performed. FINDINGS: Breast composition demonstrates scattered fibroglandular densities. Overall appearance stable. Typically benign calcifications (left greater than right). No suspicious microcalcifications, dominant mass lesions, or distortion is present. IMPRESSION: BI-RADS 2- Benign Mammogram Board Certified Radiologist. Accredited by the ACR and FDA. MAMMOGRAPHY IS VERY IMPORTANT TO YOUR HEALTH. THE CURRENT [employer]WORK GUIDELINES RECOMMENDS ANNUAL MAMMOGRAPHY BEGINNING AT AGE 40 THIS FACILITY USES A REMINDER SYSTEM TO ENSURE ALL PATIENTS RECEIVE REMINDER NOTIFICATIONS AT THE APPROPRIATE TIME BASED ON THE RECOMMENDATIONS OF THIS EXAM. Report reported and signed by Gaudencio Llamas on 06/08/2022 1132 Normal [facility] Drill Operator CNOVSPon 05-21-2021 CNOVSP Visit (SP) Office ([place]) LOVE MARTINEZ ([id number]) 1940 F Date Time Provider Department 05/21/21 11:30 AM JULIO LAMBERT During your visit today, we recorded the following information about you: Temperature Pulse Respiration Blood pressure 97.5 degrees 78/minute 16/minute 155/99 Weight Height 92.1 kg 1.708 m Julio Lambert MD 05/25/2021 9:59 AM Signed NAME: Love Martinez NO.: [id number] DATE OF SERVICE: May 21, 2021 Some elements in this clinic note that are critical to medical decision making have been carefully reviewed and included from a prior clinic note dated: May 22, 2020 Additional Clinicians involved in Love Martinez's care: Nancy Hannah, Chalo Kidd MD ([facility]) CC: breast cancer follow up. ASSESSMENT: 80 year old post-menopausal female diagnosed with a left sided [id number], stage I breast cancer (0.7 cm, T1b, overall grade 2 with associated DCIS, ER 100%, VA 100%, HER-2 negative) treated with lumpectomy and sentinel lymph node biopsy, adjuvant radiation therapy and currently on adjuvant endocrine therapy since May 2015. No adjuvant chemotherapy recommended given low Oncotype RS of 9. She was initially on Arimidex that was changed to tamoxifen in March 2018. She has completed 5 years of endocrine treatment. She also had osteopenia secondary to AI use that developed despite use of Ca and Vit D. Trials of zoledronic acid were noted with poor tolerance (joint aches and eye inflammation) and she has remained on calcium and vitamin D (1000mg and 800IU) daily. She is NELL and would like to simplify her medical care. She can see me as needed in the future. PLAN: 1. Obtain lab results from [facility] - needs CBC, CMP 2. Will defer to her PCP for Dexa and next mammogram 3. RTC PRN HPI: Updated Visit, May 21, 2021: Here with sister Jacqueline. Has not had labs recently and is due for bone density. Mammography is up-to-date in 04/2021 and was benign. She prefers to have her exam done by her new PCP and will do labs there too. Updated Visit, May 22, 2020 She comes in for a follow-up visit. Mammogram done on 04/13/20 was without any evidence of recurrence. She continues on tamoxifen without any tolerability issues. She has completed 5 years of endocrine treatment. Case History Past medical history of gastroesophageal reflux disease, hyperlipidemia, hypertension, hypothyroidism, transient intermittent atrial fibrillation, arthritis, breast cancer. History of hysterectomy. History of a right hip replacement. Routine screening mammogram on 01/12/15 abnormal showed a new left breast mass, ultimately referred to radiology for biopsy on 01/19/15 which was consistent with invasive breast carcinoma. 0.7 cm, T1b, overall grade 2 with associated DCIS. ER 100%, VA 100%, HER-2 negative score 0. Had been spell allowing the spot for about a year and a mammogram. On 02/17/15 she had a left partial mastectomy of the left upper outer quadrant and sentinel lymph node biopsy. Pathology report revealed only residual DCIS with high grade., negative margins(1.0 mm from the anterior margin), 3 sentinel lymph nodes negative for involvement . Postop course with a mild cellulitis. Treated with Keflex, began treatment on 03/02/15. Completed 6100cGy to the left chest wall April 02 through May 20, 2015. Her Oncotype DX score came back low risk with a score of 9. DEXA scan with normal bone density in March 2015. Began Arimidex in May 2015 and tolerating well. Changed to tamoxifen in March 2018 given arthralgias and fatigue from AI. RADIOLOGY/OTHER STUDIES: 04/05/2021 Mammogram Benign 04/13/20 Mammogram Negative for recurrence REVIEW OF SYSTEMS Per HPI and otherwise negative by full review of organ systems. ECOG PERFORMANCE STATUS: 0 PHYSICAL EXAMINATION: Vitals: BP 155/99 Pulse 78 Temp 97.5 Resp 16 Ht 5' 7.244 (1.71m) Wt 203 lb (92.1kg) SpO2 99% BMI 31.56 kg/(m2). Body surface area is 2.09 meters squared. Exam limited to gross visualization where appropriate due to COVID-19. Gen.: This is an age-appropriate patient in no acute distress. Head: Appears atraumatic with no visible lesions. Eyes: Pupils equally round and reactive to light, extraocular muscles are intact. Neck: Supple. Mouth: Mucous membranes appeared to be moist. Respiratory: Appears to be respiring comfortably. Neurologic: Nonfocal to gross visualization. Alert and oriented ?3. Psychiatric: No evidence of inappropriate anxiety or depression. Skin: Visible areas of skin without rash, lesions, wounds or petechiae. ALLERGIES: ALLERGIES Allergen Reactions - Reclast [Zoledronic* Other: See Comments severe headaches MEDICATIONS: nystatin (NYAMYC) powder APPLY 1 APPLICATION TO AFFECTED AREA FOUR TIMES A DAY metFORMIN ER (GLUCOPHAGE XR) 500 mg 24 hr tablet apixa (more content not included)... Normal [facility] Vital Signs Date Time Vital Sign Value Performing Clinician Facility 06-24-2024 13:50-0400 Body height 175.3 cm Benito Cho DPM Work Phone: [facility] 06-24-2024 13:50-0400 Body mass index (BMI) [Ratio] 26.29 kg/m2 Benito Cho DPM Work Phone: [facility] 06-24-2024 13:50-0400 Body weight 80.74 kg Benito Cho DPM Work Phone: [facility] 03-02-2024 17:00-0400 Body temperature 97.7 [degF] OFFICE MACHINE INSPECTOR-C Nolan Kampfer Work Phone: [facility] 03-02-2024 17:00-0400 Diastolic blood pressure 75 mm[Hg] OFFICE MACHINE INSPECTOR-C Nolan Kampfer Work Phone: [facility] 03-02-2024 17:00-0400 Heart rate 80 /min OFFICE MACHINE INSPECTOR-C Nolan Kampfer Work Phone: [facility] 03-02-2024 17:00-0400 Respiratory rate 16 /min OFFICE MACHINE INSPECTOR-C Nolan Kampfer Work Phone: [facility] 03-02-2024 17:00-0400 SaO2% (BldA) [Mass fraction] 99 % OFFICE MACHINE INSPECTOR-C Nolan Kampfer Work Phone: [facility] 03-02-2024 17:00-0400 Systolic blood pressure 119 mm[Hg] OFFICE MACHINE INSPECTOR-C Nolan Kampfer Work Phone: [facility] 03-02-2024 06:00-0400 Body weight 79.2 kg OFFICE MACHINE INSPECTOR-C Nolan Kampfer Work Phone: [facility] 02-28-2024 12:30-0400 Body height 175.26 cm OFFICE MACHINE INSPECTOR-C Nolan Kampfer Work Phone: [facility] 10-11-2023 14:01-0500 Body height 175.3 cm 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 Phone: [facility] 10-11-2023 14:01-0500 Body mass index (BMI) [Ratio] 26.29 kg/m2 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 Phone: [facility] 10-11-2023 14:01-0500 Body weight 80.74 kg Nolan Isabel OFFICE MACHINE INSPECTOR Work Phone: [facility] 10-11-2023 14:01-0500 Diastolic blood pressure 84 mm[Hg] Nolan Isabel OFFICE MACHINE INSPECTOR Work Phone: [facility] 10-11-2023 14:01-0500 Heart rate 79 /min Nolan Isabel OFFICE MACHINE INSPECTOR Work Phone: [facility] 10-11-2023 14:01-0500 SaO2% (BldA) [Mass fraction] 95 % Nolan Isabel OFFICE MACHINE INSPECTOR Work Phone: [facility] 10-11-2023 14:01-0500 Systolic blood pressure 120 mm[Hg] Nolan Isabel OFFICE MACHINE INSPECTOR Work Phone: [facility] Healthcare Encounters Encounter Date Encounter Type Care Provider Facility Start: 06-24-2024 End: 06-24-2024 Bamboo flowsfelix Cho DPM Work Phone: [facility] Start: 06-24-2024 End: 06-24-2024 Bamboo flowsheet Benito Cho DPM Work Phone: [facility] Start: 06-24-2024 End: 06-24-2024 ambulatory BENITO CHO Not Available Start: 06-24-2024 End: 06-24-2024 Office outpatient new 30 minutes Benito Cho DPM Work Phone: [facility] Comment on above: Dermatophytosis of n ail (Primary Dx); Dystrophic nail; Pain around toenail, right foot; Pain around toenail, left foot Start: 02-21-2024 Non-patient / Non-visit OFFICE MACHINE INSPECTOR-C Phyllis forrest Maame Work Phone: [facility] Cardiology Work Phone: Start: 02-21-2024 End: 03-02-2024 Evaluation and management of inpatient OFFICE MACHINE INSPECTOR-C Nolan Isabel Work Phone: [facility] [place] [facility] Work Phone: Start: 10-11-2023 End: 10-11-2023 Patient encounter procedure Nolan Isabel OFFICE MACHINE INSPECTOR Work Phone: [facility] Comment on above: Encounter for [facility] ss examination (Primary Dx); Primary hypertension (CMS/HCC); Acquired hypothyroidism (CMS/HCC); Mixed hyperlipidemia (CMS/HCC); Type 2 diabetes mellitus with hyperglycemia, without long-term current use of insulin (CMS/HCC); Gastroesophageal reflux disease, unspecified whether esophagitis present; Age-related osteoporosis without current pathological fracture (CMS/HCC); Anemia, unspecified type; Difficulty initiating walking; Osteopenia determined by x-ray; H/O: hysterectomy; Anxiety; Primary osteoarthritis of both hips; Persistent atrial fibrillation (HCC) (CMS/HCC); Malignant neoplasm of left female breast, unspecified estrogen receptor status, unspecified site of breast (CMS/HCC); Unsteady gait when walking; Grief (CMS/HCC); Cervical cancer screening declined; Colon cancer screening declined; Osteoporosis screening declined Start: 10-11-2023 End: 10-11-2023 Patient encounter status Nolan Isabel OFFICE MACHINE INSPECTOR Work Phone: [facility] Healthcare Work Phone: Start: 10-11-2023 End: 10-11-2023 ambulatory NOLAN ISABEL Not Available Start: 04-21-2019 End: 04-21-2019 Patient encounter procedure [facility] Facility: Procedures Date Procedure Procedure Detail Performing Clinician Start: 02-21-2024 CT of pelvis with contrast OFFICE MACHINE INSPECTOR-C Nolan Isabel Work Phone: Start: 02-21-2024 Aerobic microbial culture OFFICE MACHINE INSPECTOR-C Nolan Isabel Work Phone: Start: 10-11-2023 Complete blood count with white cell differential, automated Nolan Isabel OFFICE MACHINE INSPECTOR Work Phone: Start: 10-11-2023 Comprehensive metabo lic panel Nolan Isabel OFFICE MACHINE INSPECTOR Work Phone: Start: 10-11-2023 Lipid panel Nolan ramos OFFICE MACHINE INSPECTOR Work Phone: Start: 10-11-2023 TSH W/REFLEX TO FT4 Claudio Isabel OFFICE MACHINE INSPECTOR Work Phone: Start: 10-11-2023 H/O: hysterectomy H/O: hysterectomy Nolan Isabel NP Work Phone: Plan of Treatment Date Care Activity Detail Author Start: 10-16-2024 Urine screening for protein Diabetes: Urine Protein Screening [facility] Start: 10-11-2024 Medicare Annual Wellness (AWV) Medicare Annual Wellness (AWV) [facility] Start: 10-07-2024 End: 10-07-2024 Patient encounter procedure 10/07/2024 1:30 PM EST Procedure Visit [facility] [address] [place] [id number] Benito Cho, DPM [address] [facility] [place], [place] [id number] [facility] Start: 05-05-2024 Influenza vaccination Influenza Vacc ine (#1) [facility] Start: 04-10-2024 End: 04-10-2024 Patient encounter procedure 04/10/2024 1:00 PM EDT Office Visit [facility] [place] [address] [place] [id number] Nolan Isabel NP [address] [place], [place] [id number] [facility] [place] Start: 02-26-2024 [facility] Start: 02-20-2024 Hospital admission [facility] Start: 02-20-2024 [facility] Start: 01-09-2024 Hemoglobin A1c measurement Diabetes: Hemoglobin A1C [facility] Start: 10-11-2023 End: 10-11-2024 Microalbumin/Creatinine panel in random Urine Microalbumin / creatinine, urine ratio Lab Routine Encounter for wellness examination Type 2 diabetes mellitus with hyperglycemia, without long-term current use of insulin ([facility]) Expected: 10/11/2023 (Approximate), Expires: 10/11/2024 [facility] Work Phone: Comment on above: Expected: 10/11/2023 (Approximate), Expires: 10/11/2024 Start: 02-26-2021 Urine screening for protein Diabetes: Urine Protein Screening [facility] Start: 1950 Glaucoma screening Diabetes: R etinopathy Screening [facility] Patient Education Know your Meds [facility] Work Phone: Patient referral [facility] Work Phone: Immunizations Immunization Date Immunization Notes Care Provider [facility] 06-27-2023 Influenza, High-dose Seasonal, Quadrivalent, Preservative Free 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 Phone: [facility] 06-27-2023 pneumococcal polysaccharide vaccine, 23 valent 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 Phone: [facility] 06-27-2023 influenza virus vacc ine, unspecified formulation Benito Cho DPM Work Phone: [facility] 06-15-2022 Influenza, High-dose Seasonal, Quadrivalent, Preservative Free 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 Phone: [facility] 06-14-2021 Influenza, High-dose Seasonal, Quadrivalent, Preservative Free 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 Phone: [facility] 06-08-2020 influenza, high dose seasonal, preservative-free 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 Phone: [facility] 06-20-2019 influenza, high dose seasonal, preservative-free 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 Phone: [facility] 06-19-2018 Influenza, High-dose Seasonal, Quadrivalent, Preservative Free 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 Phone: [facility] 06-12-2017 Influenza, High-dose Seasonal, Quadrivalent, Preservative Free 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 Phone: [facility] 06-16-2016 Influenza, High-dose Seasonal, Quadrivalent, Preservative Free 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 Phone: [facility] 12-18-2015 pneumococcal conjuga te vaccine, 13 valent Nolan Isabel OFFICE MACHINE INSPECTOR Work Phone: [facility] 12-18-2015 pneumococcal vaccine , unspecified formulation Nolan Isabel OFFICE MACHINE INSPECTOR Work Phone: [facility] 01-06-2013 zoster vaccine, live Nolan lowe OFFICE MACHINE INSPECTOR Work Phone: [facility] 09-04-2008 pneumococcal polysaccharide vaccine, 23 valent Nolan Lincolnpeperichard OFFICE MACHINE INSPECTOR Work Phone: [facility] 06-25-1999 pneumococcal conjuga te vaccine, 7 valent Nloan Lincolnpeperichard OFFICE MACHINE INSPECTOR Work Phone: [facility] Payers Date Payer Category Payer Self-pay [id number] 2021 Medicaid [employer] MEDICARE A DVANTAGE [id number] 2021 Medicare AETNA MEDICARE A DVANTAGE AETNA MEDICARE REPLACEMENT [id number] 2021-Present [address] [place] [address] [id number] 2021 Private Health Insurance [id number] 1958 Medicare [id number] 1940 Unknown [id number] 1940 Unknown [id number] 1940 Unknown [id number] Unknown [id number] Social History Date Type Detail Facility Start: 10-11-2023 End: 02-21-2024 Tobacco smoking status NHIS Never smoked tobacco [facility] Start: 10-11-2023 Tobacco use and exposure Smokeless tobacco non-user [facility] Start: 10-13-2023 End: 06-24-2024 Alcohol intake Lifetime non-drinker (finding) [facility] Start: 10-11-2023 End: 10-13-2023 History of Social function [facility] Start: 10-11-2023 End: 10-13-2023 Tobacco use panel [facility] Start: 10-11-2023 Alcohol Comment caffeine intak e: 2 cups of coffee [facility] Start: 1940 Sex Assigned At Not on file [facility] Start: 1940 Sex Assigned At Female [facility] NEGATED: Highlighted row [facility] Goals Date Patient Goal Desired Activity /State Functional Status Date Assessment Result Facility 03-02-2024 Functional status Patient is Pro gressing Toward Baseline [facility] Work Phone: Mental Status Date Assessment Result Facility 03-02-2024 Cognitive function Cognitive Sta tus Patient at Baseline [facility] Work Phone: Clinical Notes 05-21-2021 to 06-24-2024 Benito Cho DPM - 06/24/2024 1:45 PM EDTPatient Instructions Note Date & Type Note Facility 06-24-2024 History of Presen t illness Narrative Images from the original note were not included. Subjective Patient ID: Love Martinez is a 84 y.o. 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 ). HPI Patient last in clinic many years previous. Accompanied by her sister. Chief complaint: Thickened, deformed, discolored fungal toenails . Insidious onset. Gradual progressive deformity over multiple years. Problematic/symptomatic over the past several months or so; describing pressure discomfort with footwear; catching and snagging on clothing, bed sheets etc.. Denies bleeding or drainage. Self care measures are difficult, ineffective and not practical; increasing risk exposure. Family members unable to provide effective care. Patient has received palliative care measures previously in the facility setting; providing favorable transient symptom relief. Risk factors: Type II diabetes. Medical comorbidities. Eliquis therapy. Polypharmacy. Mobility, flexibility and dexterity restraints. Toenail deformity. Digital and/or shoe trauma and related complications. Medications Current Outpatient Medications: atenolol (Tenormin) 50 MG tablet, Take 1 tablet (50 mg) by mouth in the morning., Disp: 90 tablet, Rfl: 3 cholecalciferol (Vitamin D-3) 50 MCG (2000 UT) capsule, Take 2,000 Units by mouth in the morning., Disp: , Rfl: hydroCHLOROthiazide (HYDRODiuril) 25 MG tablet, Take 1 tablet (25 mg) by mouth in the morning., Disp: 90 tablet, Rfl: 1 latanoprost (Xalatan) 0.005 % ophthalmic solution, Administer 1 drop into affected eye(s) in the morning., Disp: , Rfl: omeprazole (PriLOSEC) [address] capsule, Take 1 capsule (40 mg) by mouth in the morning. Take before meals., Disp: 90 capsule, Rfl: 1 timolol (Timoptic) 0.5 % ophthalmic solution, Administer 1 drop into affected eye(s) at bedtime, Disp: , Rfl: apixaban (Eliquis) 5 MG tablet, Take 1 tablet (5 mg) by mouth in the morning and 1 tablet (5 mg) before bedtime., Disp: 180 tablet, Rfl: 0 levothyroxine (Synthroid, Levoxyl) 50 MCG tablet, Take 1 tablet (50 mcg) by mouth in the morning. Take before meals., Disp: 90 tablet, Rfl: 3 metFORMIN XR (Glucophage-XR) 500 MG 24 hr tablet, Take 1 tablet (500 mg) by mouth in the evening. Take with meals., Disp: 90 tablet, Rfl: 3 pravastatin (Pravachol) 40 MG tablet, Take 1 tablet (40 mg) by mouth in the morning., Disp: 90 tablet, Rfl: 3 Allergies Sucralfate and Zoledronic acid Past Surgical History Past Surgical History: Procedure Laterality Date HIP FRACTURE SURGERY INTRAOCULAR LENS IMPLANT, SECONDARY Right 05/11/2023 INTRAOCULAR LENS IMPLANT, SECONDARY Left 06/01/2023 Family History No family history on file. Objective GENERAL ASSESSMENT: Alert and oriented. Pleasant disposition. Presents by way of wheelchair; unable to transfer end of the treatment chair. Accompanied by her sister. Vascular: DP 1/4 bilateral. PT 1/4 bilateral. CFT brisk all digits. Unremarkable for ankle edema. Neurologic: Tactile and light touch sensation intact. Dermatologic: Skin turgor is good. Web space areas are clean, dry, non-inflamed. Unremarkable for eczema or dermatitis. TOENAIL PATHOLOGY: All digits right foot; digits 1, 2 left foot: Toenail dystrophy, hypertrophy, thickening, discoloration, clubbing, elongation, subtotal detachment, periungual hyperkeratosis, without drainage. Bilateral great toes: Pincer toenail deformity with incurvated margins. Total with debris: Multiple digits right foot. Relative sparing of digits 3, 4, 5 left foot. No clinical signs of open wound or ulceration. Orthopedic: RANGE OF MOTION: Functional but limited ankle, subtalar and 1st MTP joint range of motion. LESION PATTERN: No forefoot or digital discrete keratotic lesions are noted. Radiology: Assessment/Plan Symptomatic onychodystrophy/mycosis multiple digits as described. Plan: Conservative and palliative care measures are preferred, understood and again indicated. Patient expresses no interest in oral or topical therapy; nor is it recommended. Procedure: Toenail debridement: Aseptic technique: Hand and power instrumentation: Onychodebridement in length and thickness, with curettage of any cryptotic margins, all periungual debris; providing effective symptom and pressure relief; reducing shoe and digital trauma. This note was created with the assistance of a speech recognition program. While intending to generate a timely document that accurately reflects the content of the visit, no guarantee can be provided that every grammatical or spelling mistake has been or will be identified or corrected. Thank you for your understanding. Benito Cho DPM documented in this encounter [facility] 06-24-2024 Instructions Benito Cho DPM - 06/24/2024 1:45 PM EDT As noted documented in this encounter [facility] 03-02-2024 Progress note Note Date/Time March 02, 2024 4:02pm [place] [address] Hospitalist Progress Note Signed Patient: Love Martinez MR#: [id number] : 1940 Acct:[id number] Age/Sex: 83 / F Adm Date: 4 Loc: Room: [address] [place] [address] Type: ADM IN Attending Dr: Guero Cantu MD Copies to: ~ Date of Service: 03/02/2024 Subjective Subjective Narrative: No acute events noted overnight. Patient was seen at bedside. She does not voice any complaint She got her approval for [facility]p facility. She will be living at 5 PM today Discharge summary was done on 02/26/2024 for this admission. It remained the same Exam Physical Exam Vital Signs: Temp Pulse Resp BP Pulse Ox O2 Del Method 97.7 F 61 18 109/69 98 Room Air 03/02/24 08:00 03/02/24 12:00 03/02/24 12:00 03/02/24 12:00 03/02/24 12:00 03/02/24 12:00 Objective Lab Results 02/25/24 06:07 02/25/24 06:07 Meds Allergies and Active Meds Allergies No Known Allergies Allergy (Verified 02/20/24 23:01) Active Meds: Active Medications Generic Name Dose Route Start Last Admin Trade Name Freq PRN Reason Stop Dose Admin Acetaminophen 650 mg 02/20/24 22:07 03/02/24 03:22 Acetaminophen 325 Mg Tablet PO 02/19/25 22:06 650 mg Q6HR PRN Administration Pain Scale 1 - 3 or fever Apixaban 5 mg 02/24/24 09:40 03/02/24 08:36 Apixaban 5 Mg Tablet PO 02/23/25 09:39 5 mg BID CORAZON Administration Dextrose 0 gm 02/20/24 22:07 Dextrose 50% In Water 25 Gm/50 Ml Syringe IV-PUSH 02/19/25 22:06 PRN PRN Hypoglycemia Docusate Sodium 100 mg 02/26/24 11:27 02/29/24 08:27 Docusate 100 Mg Capsule PO 02/25/25 11:26 100 mg BID PRN Administration Constipation Glucose 0 gm 02/20/24 22:07 Dextrose 40% Gel 15 Gm Tube PO 02/19/25 22:06 PRN PRN Hypoglycemia Hydrochlorothiazide 25 mg 02/24/24 09:40 03/02/24 08:36 Hydrochlorothiazide 25 Mg Tablet PO 02/23/25 09:39 25 mg DAILY CORAZON Administration Insulin Aspart 0 units 02/23/24 12:00 03/02/24 12:47 Insulin Aspart 300 Units/3 Ml Insuln.Pen SUBCUT 02/22/25 11:59 1 units TID.WM.HS CORAZON Administration Protocol Latanoprost 1 drops 02/24/24 11:00 03/02/24 08:37 Latanoprost 0.005% Op Soln 50 Drops/2.5 Ml Bottle EYE-BOTH 02/23/25 10:59 1drops DAILY CORAZON Administration Levothyroxine Sodium 50 mcg 02/24/24 09:40 03/02/24 06:00 Levothyroxine 50 Mcg Tablet PO 02/23/25 09:39 50 mcg DAILY@0630 CORAZON Administration Metoprolol Tartrate 50 mg 02/24/24 16:00 03/02/24 08:36 Metoprolol Tartrate 50 Mg Tablet PO 02/23/25 15:59 50 mg BID CORAZON Administration Ondansetron HCl 4 mg 02/20/24 22:07 Ondansetron 4 Mg/2 Ml Vial IV-PUSH 02/19/25 22:06 Q8H PRN Nausea And Vomiting Pantoprazole Sodium 40 mg 02/24/24 21:00 03/02/24 08:36 Pantoprazole 40 Mg Tablet.Dr PO 02/23/25 20:59 40 mg BID CORAZON Administration Phenyleph/Shark Oil/Colerain Butter 1 supp 02/26/24 21:00 03/02/24 08:37 Phenylephrine/Colerain Butter 6.25 Mg/2211 Mg 1 Supp VA 02/25/25 20:59 Not Given BID CORAZON Polyethylene Glycol 17 gm 02/27/24 10:04 02/29/24 08:27 Polyethylene Glycol 3350 17 Gm Powd.Pack PO 02/26/25 10:03 17 gm DAILY PRN Administration Constipation Pravastatin Sodium 40 mg 02/24/24 22:00 03/01/24 21:04 Pravastatin 40 Mg Tablet PO 02/23/25 21:59 40 mg QHS CORAZON Administration Timolol Maleate 1 drops 02/24/24 11:00 03/02/24 08:37 Timolol Mal 0.5% Op Soln 100 Drops/5 Ml Bottle EYE-BOTH 02/23/25 10:59 1 drops DAILY CORAZON Administration Vitamin D 50 mcg 02/25/24 09:00 03/02/24 08:36 Cholecalciferol 25 Mcg (1,000 Units) Tablet PO 02/24/25 08:59 50 mcg DAILY CORAZON Administration A&P - Hospitalist Assessment/Plan (1) Leukocytosis: (2) Falls: (3) GERD (gastroesophageal reflux disease): (4) DM type 2 (diabetes mellitus, type 2): (5) Essential hypertension: (6) Persistent atrial fibrillation: Plan ASSESSMENT AND PLAN: 03/02/2024 Right groin ulcerated wound with purulent drainage Leukocytosis Reports less drainage. CT of the pelvis negative for fluid collection - p.o. doxycycline on discharge -Follow-up superficial wound culture Persistent atrial fibrillation Chronic anticoagulation with Eliquis Patient does now have rate controlled atrial fibrillation. -Continue to monitor on telemetry Rhabdomyolysis CPK down-trended appropriately. Renal function stable. Troponin Elevation Does not appear consistent with acute coronary syndrome. Initial troponin was 127, and trend did go to 135. Low suspicion for ACS given patient not having cardiorespiratory complaints. This could be in the setting of groin infection and mild groin cellulitis with purulent fluid drainage -Continue to monitor on telemetry -Appreciate cardiology recommendations Fall Generalized weakness -Continue PT/OT Other chronic medical conditions noted below, continue home regimens unless otherwise specified (Home medications need to be reconciled): NIDDM hypothyroidism GERD HTN CODE STATUS: Full Code Disposition: Patient is going to be discharged to [facility]p facility at 5 PM today. Documented By: Guero Cantu MD 03/02/24 1601 Signed By: <Electronically signed by Guero Cantu MD> 03/02/[address] [facility] Work Phone: [phone]) 851-653406-28-2024 Discharge summary Author Anand Khan [facility] March 01, 2024 11:43am Note Date/Time February 26, 2024 11:3 1am [facility] [address] [place] [address] Discharge Summary Signed with Addenda Patient: Love Martinez MR#: [id number] : 1940 Acct:[id number] Age/Sex: 83 / F Adm Date: 4 Loc: Room: [address] [place] [address]: Anand Khan DO Copies to: Nolan Isabel DISPLAY CARD WRITER-SPEECH AND LANGUAGE CLINICIAN Anand Khan DO~ ADDENDUM1 Insurance denied pre-CERT to SNF. Patient will be discharged home with home care. Discharge date 03/01/2024. Addendum Documented By: Anand Khan DO 03/01/24 1143 Addendum Signed By: <Electronically signed by Anand Khan DO> 03/01/24 1143 Providers Date of Discharge: 02/26/24 Discharging Provider: Anand Khan Primary Care Provider: Nolan Isabel Consults: 02/20/24 22:13 Consult to Occupational Therapy Routine Comment: Physician Instructions: Consult to OT for:: Evaluation and Treat Consult to Physical Therapy Routine Comment: Physician Instructions: Consult to PT for:: Evaluation and Treat Discharge Diagnosis (1) Leukocytosis: (2) Falls: (3) GERD (gastroesophageal reflux disease): (4) DM type 2 (diabetes mellitus, type 2): (5) Essential hypertension: (6) Persistent atrial fibrillation: Final Diagnosis Final Discharge Diagnosis: Falls Leukocytosis GERD Type 2 diabetes Hypertension Persistent A-fib Summary Hospital Course Hospital course: 83-year-old female with a past medical history of A-fib on Eliquis, type 2 diabetes, hypothyroidism, GERD who presented to the hospital with concern of acute coronary syndrome. She was evaluated from cardiac standpoint and no further cardiac workup was needed. She remained in stable also in regard to [place]-fib and her rate was controlled. She was evaluated by PT/OT. She was discharged to [facility]p facility. Patient did have groin cellulitis with punctate ulcer in the right groin with purulent drainage and was treated with doxycycline. CT showed no deep infection. She remained hemodynamically stable. Condition Condition at Discharge: Stable Status at Discharge Overall status at discharge: patient is progressing back to baseline Time Spent with Patient Time spent providing/coordinating discharge services (# min): 36 Discharge Plan Discharge Plan Patient Disposition: Snf Facility Activity: No Activity Restriction Diet: Diabetic, Low-Sodium and Low-Cholesterol Instructions: Know your Meds Prescriptions: New doxycycline hyclate 100 mg Tablet 100 mg PO Q12H 10 Days Qty: 20 0RF Continued Eliquis 5 mg tablet 5 mg PO BID latanoprost 0.005 % drops 1 drp Eye-Both DAILY cholecalciferol (vitamin D3) 50 mcg (2,000 unit) capsule 50 mcg PO DAILY timolol 0.5 % drops 1 drp Eye-Both DAILY hydrochlorothiazide 25 mg tablet 25 mg PO DAILY omeprazole 40 mg capsule,delayed release(DR/EC) 40 mg PO DAILY pravastatin 40 mg tablet 40 mg PO QHS metformin 500 mg tablet extended release 24 hr 500 mg PO DAILY levothyroxine [Synthroid] 50 mcg tablet 50 mcg PO DAILY atenolol 50 mg tablet 50 mg PO DAILY Follow Up: Ana Lilia May MD [Active Staff] - 04/11/24 1:00 pm Nolan Isabel NP-C [Primary Care Provider] - None (Please arrange a follow-upappointment once discharged from SNF. ) Exam Physical Exam Vital Signs: Temp Pulse Resp BP Pulse Ox O2 Del Method 97.8 F 93 18 167/84 H 96 Room Air 02/26/24 08:00 02/26/24 08:00 02/26/24 08:00 02/26/24 08:00 02/26/24 08:00 02/26/24 08:00 Narrative: General in no acute distress HEENT head atraumatic normocephalic Heart regular rate Lungs clear Abdomen soft nontender nondistended Neurologically nonfocal Skin groin rash Diagnostic Studies Completed and Pending Studies Labs on day of discharge: 02/26/24 06:08: POC Glucose 157 02/25/24 20:31: POC Glucose 177 02/25/24 16:14: POC Glucose 137 Documented By: Anand Khan DO 02/26/24 1129 Signed By: <Electronically signed by Anand Khan DO> 02/26/[address] [facility] Work Phone: [phone]) 875-533206-28-2024 Progress note Author Anand Khan [facility] March 01, 2024 11:41am Note Date/Time March 01, 2024 11:4 1am [facility] [address] [place] [address] Hospitalist Progress Note Signed Patient: Love Martinez MR#: [id number] : 1940 Acct:[id number] Age/Sex: 83 / F Adm Date: 4 Loc: Room: [address] [place] [address] Type: ADM IN Attending Dr: Anand Khan DO Copies to: ~ Date of Service: 03/01/2024 Subjective Subjective Narrative: No acute events noted overnight. Exam Physical Exam Vital Signs: Temp Pulse Resp BP Pulse Ox O2 Del Method 97.7 F 62 18 125/76 98 Room Air 03/01/24 08:00 03/01/24 08:00 03/01/24 08:00 03/01/24 08:00 03/01/24 08:00 03/01/24 08:00 Narrative: General in no acute distress HEENT head atraumatic normocephalic Heart regular rate Lungs clear Abdomen soft nontender nondistended Neurologically nonfocal Skin groin rash Objective Lab Results 02/25/24 06:07 02/25/24 06:07 Meds Allergies and Active Meds Allergies No Known Allergies Allergy (Verified 02/20/24 23:01) Active Meds: Active Medications Generic Name Dose Route Start Last Admin Trade Name Freq PRN Reason Stop Dose Admin Acetaminophen 650 mg 02/20/24 22:07 Acetaminophen 325 Mg Tablet PO 02/19/25 22:06 Q6HR PRN Pain Scale 1 - 3 or fever Apixaban 5 mg 02/24/24 09:40 03/01/24 08:27 Apixaban 5 Mg Tablet PO 02/23/25 09:39 5 mg BID CORAZON Administration Dextrose 0 gm 02/20/24 22:07 Dextrose 50% In Water 25 Gm/50 Ml Syringe IV-PUSH 02/19/25 22:06 PRN PRN Hypoglycemia Docusate Sodium 100 mg 02/26/24 11:27 02/29/24 08:27 Docusate 100 Mg Capsule PO 02/25/25 11:26 100 mg BID PRN Administration Constipation Doxycycline Hyclate 100 mg 02/23/24 23:00 03/01/24 11:29 Doxycycline Hyclate 100 Mg Tablet PO 100 mg Q12H CORAZON Administration Glucose 0 gm 02/20/24 22:07 Dextrose 40% Gel 15 Gm Tube PO 02/19/25 22:06 PRN PRN Hypoglycemia Hydrochlorothiazide 25 mg 02/24/24 09:40 03/01/24 08:27 Hydrochlorothiazide 25 Mg Tablet PO 02/23/25 09:39 25 mg DAILY CORAZON Administration Insulin Aspart 0 units 02/23/24 12:00 03/01/24 08:28 Insulin Aspart 300 Units/3 Ml Insuln.Pen SUBCUT 02/22/25 11:59 Not Given TID.WM.HS [facility] Protocol Latanoprost 1 drops 02/24/24 11:00 03/01/24 08:28 Latanoprost 0.005% Op Soln 50 Drops/2.5 Ml Bottle EYE-BOTH 02/23/25 10:59 1drops DAILY CORAZON Administration Levothyroxine Sodium 50 mcg 02/24/24 09:40 03/01/24 05:36 Levothyroxine 50 Mcg Tablet PO 02/23/25 09:39 Not Given DAILY@0630 CORAZON Metoprolol Tartrate 50 mg 02/24/24 16:00 03/01/24 08:27 Metoprolol Tartrate 50 Mg Tablet PO 02/23/25 15:59 50 mg BID CORAZON Administration Ondansetron HCl 4 mg 02/20/24 22:07 Ondansetron 4 Mg/2 Ml Vial IV-PUSH 02/19/25 22:06 Q8H PRN Nausea And Vomiting Pantoprazole Sodium 40 mg 02/24/24 21:00 03/01/24 08:27 Pantoprazole 40 Mg Tablet.Dr PO 02/23/25 20:59 40 mg BID CORAZON Administration Phenyleph/Shark Oil/Colerain Butter 1 supp 02/26/24 21:00 03/01/24 08:28 Phenylephrine/Colerain Butter 6.25 Mg/2211 Mg 1 Supp VA 02/25/25 20:59 1 supp BID CORAZON Administration Polyethylene Glycol 17 gm 02/27/24 10:04 02/29/24 08:27 Polyethylene Glycol 3350 17 Gm Powd.Pack PO 02/26/25 10:03 17 gm DAILY PRN Administration Constipation Pravastatin Sodium 40 mg 02/24/24 22:00 02/29/24 21:00 Pravastatin 40 Mg Tablet PO 02/23/25 21:59 40 mg QHS CORAZON Administration Timolol Maleate 1 drops 02/24/24 11:00 03/01/24 08:28 Timolol Mal 0.5% Op Soln 100 Drops/5 Ml Bottle EYE-BOTH 02/23/25 10:59 1 drops DAILY CORAZON Administration Vitamin D 50 mcg 02/25/24 09:00 03/01/24 08:27 Cholecalciferol 25 Mcg (1,000 Units) Tablet PO 02/24/25 08:59 50 mcg DAILY COARZON Administration A&P - Hospitalist Assessment/Plan (1) Leukocytosis: (2) Falls: (3) GERD (gastroesophageal reflux disease): (4) DM type 2 (diabetes mellitus, type 2): (5) Essential hypertension: (6) Persistent atrial fibrillation: Plan Right groin ulcerated wound with purulent drainage Leukocytosis Reports less drainage. CT of the pelvis negative for fluid collection - p.o. doxycycline on discharge -Follow-up superficial wound culture Persistent atrial fibrillation Chronic anticoagulation with Eliquis Patient does now have rate controlled atrial fibrillation. -Continue to monitor on telemetry Rhabdomyolysis CPK down-trended appropriately. Renal function stable. Troponin Elevation Does not appear consistent with acute coronary syndrome. Initial troponin was 127, and trend did go to 135. Low suspicion for ACS given patient not having cardiorespiratory complaints. This could be in the setting of groin infection and mild groin cellulitis with purulent fluid drainage -Continue to monitor on telemetry -Appreciate cardiology recommendations Fall Generalized weakness -Continue PT/OT Other chronic medical conditions noted below, continue home regimens unless otherwise specified (Home medications need to be reconciled): NIDDM hypothyroidism GERD HTN CODE STATUS: Full Code Disposition: Insurance denied SNF. Patient will be discharged home with home care. Documented By: Anand Khan DO 03/01/24 1140 Signed By: <Electronically signed by Anand Khan DO> 03/01/[address] [facility] Work Phone: [phone]) 701-833906-27-2024 Progress note Author Anand Khan [facility] February 29, 2024 10:52am Note Date/Time February 29, 2024 10:5 2am [facility] [address] [place] [address] Hospitalist Progress Note Signed Patient: Love Martinez MR#: [id number] : 1940 Acct:[id number] Age/Sex: 83 / F Adm Date: 4 Loc: Room: [address] [place] [address] Type: ADM IN Attending Dr: Anand Khan DO Copies to: ~ Date of Service: 02/29/2024 Subjective Subjective Narrative: No acute events noted overnight. Exam Physical Exam Vital Signs: Temp Pulse Resp BP Pulse Ox O2 Del Method 97.5 F L 88 18 117/75 98 Room Air 02/29/24 08:00 02/29/24 08:00 02/29/24 08:00 02/29/24 08:00 02/29/24 08:00 02/29/24 08:00 Narrative: General in no acute distress HEENT head atraumatic normocephalic Heart regular rate Lungs clear Abdomen soft nontender nondistended Neurologically nonfocal Skin groin rash Objective Lab Results 02/25/24 06:07 02/25/24 06:07 Meds Allergies and Active Meds Allergies No Known Allergies Allergy (Verified 02/20/24 23:01) Active Meds: Active Medications Generic Name Dose Route Start Last Admin Trade Name Freq PRN Reason Stop Dose Admin Acetaminophen 650 mg 02/20/24 22:07 Acetaminophen 325 Mg Tablet PO 02/19/25 22:06 Q6HR PRN Pain Scale 1 - 3 or fever Apixaban 5 mg 02/24/24 09:40 02/29/24 08:27 Apixaban 5 Mg Tablet PO 02/23/25 09:39 5 mg BID CORAOZN Administration Dextrose 0 gm 02/20/24 22:07 Dextrose 50% In Water 25 Gm/50 Ml Syringe IV-PUSH 02/19/25 22:06 PRN PRN Hypoglycemia Docusate Sodium 100 mg 02/26/24 11:27 02/29/24 08:27 Docusate 100 Mg Capsule PO 02/25/25 11:26 100 mg BID PRN Administration Constipation Doxycycline Hyclate 100 mg 02/23/24 23:00 02/28/24 22:00 Doxycycline Hyclate 100 Mg Tablet PO 100 mg Q12H CORAZON Administration Glucose 0 gm 02/20/24 22:07 Dextrose 40% Gel 15 Gm Tube PO 02/19/25 22:06 PRN PRN Hypoglycemia Hydrochlorothiazide 25 mg 02/24/24 09:40 02/29/24 08:27 Hydrochlorothiazide 25 Mg Tablet PO 02/23/25 09:39 25 mg DAILY CORAZON Administration Insulin Aspart 0 units 02/23/24 12:00 02/29/24 08:26 Insulin Aspart 300 Units/3 Ml Insuln.Pen SUBCUT 02/22/25 11:59 1 units TID.WM.HS CORAZON Administration Protocol Latanoprost 1 drops 02/24/24 11:00 02/29/24 08:28 Latanoprost 0.005% Op Soln 50 Drops/2.5 Ml Bottle EYE-BOTH 02/23/25 10:59 1drops DAILY CORAZON Administration Levothyroxine Sodium 50 mcg 02/24/24 09:40 02/29/24 06:31 Levothyroxine 50 Mcg Tablet PO 02/23/25 09:39 50 mcg DAILY@0630 CORAZON Administration Metoprolol Tartrate 50 mg 02/24/24 16:00 02/29/24 08:27 Metoprolol Tartrate 50 Mg Tablet PO 02/23/25 15:59 50 mg BID CORAZON Administration Ondansetron HCl 4 mg 02/20/24 22:07 Ondansetron 4 Mg/2 Ml Vial IV-PUSH 02/19/25 22:06 Q8H PRN Nausea And Vomiting Pantoprazole Sodium 40 mg 02/24/24 21:00 02/29/24 08:27 Pantoprazole 40 Mg Tablet.Dr PO 02/23/25 20:59 40 mg BID CORAZON Administration Phenyleph/Shark Oil/Colerain Butter 1 supp 02/26/24 21:00 02/29/24 08:28 Phenylephrine/Colerain Butter 6.25 Mg/2211 Mg 1 Supp VA 02/25/25 20:59 1 supp BID CORAZON Administration Polyethylene Glycol 17 gm 02/27/24 10:04 02/29/24 08:27 Polyethylene Glycol 3350 17 Gm Powd.Pack PO 02/26/25 10:03 17 gm DAILY PRN Administration Constipation Pravastatin Sodium 40 mg 02/24/24 22:00 02/28/24 22:00 Pravastatin 40 Mg Tablet PO 02/23/25 21:59 40 mg QHS CORAZON Administration Timolol Maleate 1 drops 02/24/24 11:00 02/29/24 08:28 Timolol Mal 0.5% Op Soln 100 Drops/5 Ml Bottle EYE-BOTH 02/23/25 10:59 1 drops DAILY CORAZON Administration Vitamin D 50 mcg 02/25/24 09:00 02/29/24 08:27 Cholecalciferol 25 Mcg (1,000 Units) Tablet PO 02/24/25 08:59 50 mcg DAILY CORAZON Administration A&P - Hospitalist Assessment/Plan (1) Leukocytosis: (2) Falls: (3) GERD (gastroesophageal reflux disease): (4) DM type 2 (diabetes mellitus, type 2): (5) Essential hypertension: (6) Persistent atrial fibrillation: Plan Right groin ulcerated wound with purulent drainage Leukocytosis Reports less drainage. CT of the pelvis negative for fluid collection - p.o. doxycycline on discharge -Follow-up superficial wound culture Persistent atrial fibrillation Chronic anticoagulation with Eliquis Patient does now have rate controlled atrial fibrillation. -Continue to monitor on telemetry Rhabdomyolysis CPK down-trended appropriately. Renal function stable. Troponin Elevation Does not appear consistent with acute coronary syndrome. Initial troponin was 127, and trend did go to 135. Low suspicion for ACS given patient not having cardiorespiratory complaints. This could be in the setting of groin infection and mild groin cellulitis with purulent fluid drainage -Continue to monitor on telemetry -Appreciate cardiology recommendations Fall Generalized weakness -Continue PT/OT Other chronic medical conditions noted below, continue home regimens unless otherwise specified (Home medications need to be reconciled): NIDDM hypothyroidism GERD HTN CODE STATUS: Full Code Disposition: Patient is awaiting placement and insurance precertification has been submitted. Documented By: Anand Khan DO 02/29/24 1052 Signed By: <Electronically signed by Anand Khan DO> 02/29/[address] [facility] Work Phone: [phone]) 308-927406-26-2024 Progress note Author Anand Khan [facility] February 28, 2024 11:34am Note Date/Time February 28, 2024 11:3 4am [facility] [address] [place] [address] Hospitalist Progress Note Signed Patient: Love Martinez MR#: [id number] : 1940 Acct:[id number] Age/Sex: 83 / F Adm Date: 4 Loc: 3T Room: [address] [place] [address] Type: ADM IN Attending Dr: Anand Khan DO Copies to: ~ Date of Service: 02/28/2024 Subjective Subjective Narrative: No acute events noted overnight. Exam Physical Exam Vital Signs: Temp Pulse Resp BP Pulse Ox O2 Del Method 97.5 F L 80 18 166/84 H 97 Room Air 02/28/24 08:00 02/28/24 08:00 02/28/24 08:00 02/28/24 08:00 02/28/24 08:00 02/28/24 08:00 Narrative: General in no acute distress HEENT head atraumatic normocephalic Heart regular rate Lungs clear Abdomen soft nontender nondistended Neurologically nonfocal Skin groin rash Objective Lab Results 02/25/24 06:07 02/25/24 06:07 Meds Allergies and Active Meds Allergies No Known Allergies Allergy (Verified 02/20/24 23:01) Active Meds: Active Medications Generic Name Dose Route Start Last Admin Trade Name Faisal PRN Reason Stop Dose Admin Acetaminophen 650 mg 02/20/24 22:07 Acetaminophen 325 Mg Tablet PO 02/19/25 22:06 Q6HR PRN Pain Scale 1 - 3 or fever Apixaban 5 mg 02/24/24 09:40 02/28/24 08:12 Apixaban 5 Mg Tablet PO 02/23/25 09:39 Not Given BID CORAZON Dextrose 0 gm 02/20/24 22:07 Dextrose 50% In Water 25 Gm/50 Ml Syringe IV-PUSH 02/19/25 22:06 PRN PRN Hypoglycemia Docusate Sodium 100 mg 02/26/24 11:27 02/27/24 11:15 Docusate 100 Mg Capsule PO 02/25/25 11:26 100 mg BID PRN Administration Constipation Doxycycline Hyclate 100 mg 02/23/24 23:00 02/27/24 23:41 Doxycycline Hyclate 100 Mg Tablet PO 100 mg Q12H CORAZON Administration Glucose 0 gm 02/20/24 22:07 Dextrose 40% Gel 15 Gm Tube PO 02/19/25 22:06 PRN PRN Hypoglycemia Hydrochlorothiazide 25 mg 02/24/24 09:40 02/28/24 08:12 Hydrochlorothiazide 25 Mg Tablet PO 02/23/25 09:39 Not Given DAILY CORAZON Insulin Aspart 0 units 02/23/24 12:00 02/28/24 07:30 Insulin Aspart 300 Units/3 Ml Insuln.Pen SUBCUT 02/22/25 11:59 Not Given TID.WM.[facility] Protocol Latanoprost 1 drops 02/24/24 11:00 02/28/24 08:12 Latanoprost 0.005% Op Soln 50 Drops/2.5 Ml Bottle EYE-BOTH 02/23/25 10:59 Not Given DAILY [facility] Levothyroxine Sodium 50 mcg 02/24/24 09:40 02/28/24 05:39 Levothyroxine 50 Mcg Tablet PO 02/23/25 09:39 50 mcg DAILY@0630 CORAZON Administration Metoprolol Tartrate 50 mg 02/24/24 16:00 02/28/24 08:12 Metoprolol Tartrate 50 Mg Tablet PO 02/23/25 15:59 Not Given BID CORAZON Ondansetron HCl 4 mg 02/20/24 22:07 Ondansetron 4 Mg/2 Ml Vial IV-PUSH 02/19/25 22:06 Q8H PRN Nausea And Vomiting Pantoprazole Sodium 40 mg 02/24/24 21:00 02/28/24 08:12 Pantoprazole 40 Mg Tablet.Dr PO 02/23/25 20:59 Not Given BID CORAZON Phenyleph/Shark Oil/Colerain Butter 1 supp 02/26/24 21:00 02/28/24 09:41 Phenylephrine/Colerain Butter 6.25 Mg/2211 Mg 1 Supp VA 02/25/25 20:59 1 supp BID CORAZON Administration Polyethylene Glycol 17 gm 02/27/24 10:04 Polyethylene Glycol 3350 17 Gm Powd.Pack PO 02/26/25 10:03 DAILY PRN Constipation Pravastatin Sodium 40 mg 02/24/24 22:00 02/27/24 21:21 Pravastatin 40 Mg Tablet PO 02/23/25 21:59 40 mg QHS [facility] Administration Timolol Maleate 1 drops 02/24/24 11:00 02/28/24 08:14 Timolol Mal 0.5% Op Soln 100 Drops/5 Ml Bottle EYE-BOTH 02/23/25 10:59 Not Given DAILY CORAZON Vitamin D 50 mcg 02/25/24 09:00 02/28/24 08:12 Cholecalciferol 25 Mcg (1,000 Units) Tablet PO 02/24/25 08:59 Not Given DAILY CORAZON A&P - Hospitalist Assessment/Plan (1) Leukocytosis: (2) Falls: (3) GERD (gastroesophageal reflux disease): (4) DM type 2 (diabetes mellitus, type 2): (5) Essential hypertension: (6) Persistent atrial fibrillation: Plan Right groin ulcerated wound with purulent drainage Leukocytosis Reports less drainage. CT of the pelvis negative for fluid collection - p.o. doxycycline on discharge -Follow-up superficial wound culture Persistent atrial fibrillation Chronic anticoagulation with Eliquis Patient does now have rate controlled atrial fibrillation. -Continue to monitor on telemetry Rhabdomyolysis CPK down-trended appropriately. Renal function stable. Troponin Elevation Does not appear consistent with acute coronary syndrome. Initial troponin was 127, and trend did go to 135. Low suspicion for ACS given patient not having cardiorespiratory complaints. This could be in the setting of groin infection and mild groin cellulitis with purulent fluid drainage -Continue to monitor on telemetry -Appreciate cardiology recommendations Fall Generalized weakness -Continue PT/OT Other chronic medical conditions noted below, continue home regimens unless otherwise specified (Home medications need to be reconciled): NIDDM hypothyroidism GERD HTN CODE STATUS: Full Code Disposition: Patient is awaiting placement and insurance precertification has been submitted. Documented By: Anand Khan DO 02/28/24 1132 Signed By: <Electronically signed by Anand Khan DO> 02/28/[address] [facility] Work Phone: 1(111) 454-960706-25-2024 Progress note Author Anand Khan [facility] February 27, 2024 11:28am Note Date/Time February 27, 2024 11:2 8am [facility] [address] [place] [address] Hospitalist Progress Note Signed Patient: Love aMrtinez MR#: [id number] : 1940 Acct:[id number] Age/Sex: 83 / F Adm Date: 4 Loc: 3T Room: [address] [place] [address] Type: ADM IN Attending Dr: Anand Khan DO Copies to: ~ Date of Service: 02/27/2024 Subjective Subjective Narrative: No acute events noted overnight. c/o constipation. Exam Physical Exam Vital Signs: Temp Pulse Resp BP Pulse Ox O2 Del Method 97.6 F 85 18 144/84 H 97 Room Air 02/27/24 08:00 02/27/24 08:00 02/27/24 08:00 02/27/24 08:00 02/27/24 08:00 02/27/24 08:00 Narrative: General in no acute distress HEENT head atraumatic normocephalic Heart regular rate Lungs clear Abdomen soft nontender nondistended Neurologically nonfocal Skin groin rash Objective Lab Results 02/25/24 06:07 02/25/24 06:07 Meds Allergies and Active Meds Allergies No Known Allergies Allergy (Verified 02/20/24 23:01) Active Meds: Active Medications Generic Name Dose Route Start Last Admin Trade Name Freq PRN Reason Stop Dose Admin Acetaminophen 650 mg 02/20/24 22:07 Acetaminophen 325 Mg Tablet PO 02/19/25 22:06 Q6HR PRN Pain Scale 1 - 3 or fever Apixaban 5 mg 02/24/24 09:40 02/27/24 08:21 Apixaban 5 Mg Tablet PO 02/23/25 09:39 5 mg BID [facility] Administration Dextrose 0 gm 02/20/24 22:07 Dextrose 50% In Water 25 Gm/50 Ml Syringe IV-PUSH 02/19/25 22:06 PRN PRN Hypoglycemia Docusate Sodium 100 mg 02/26/24 11:27 02/27/24 11:15 Docusate 100 Mg Capsule PO 02/25/25 11:26 100 mg BID PRN Administration Constipation Doxycycline Hyclate 100 mg 02/23/24 23:00 02/27/24 11:15 Doxycycline Hyclate 100 Mg Tablet PO 100 mg Q12H [facility] Administration Glucose 0 gm 02/20/24 22:07 Dextrose 40% Gel 15 Gm Tube PO 02/19/25 22:06 PRN PRN Hypoglycemia Hydrochlorothiazide 25 mg 02/24/24 09:40 02/27/24 08:21 Hydrochlorothiazide 25 Mg Tablet PO 02/23/25 09:39 25 mg DAILY [facility] Administration Insulin Aspart 0 units 02/23/24 12:00 02/27/24 07:48 Insulin Aspart 300 Units/3 Ml Insuln.Pen SUBCUT 02/22/25 11:59 Not Given [facility] Protocol Latanoprost 1 drops 02/24/24 11:00 02/27/24 08:21 Latanoprost 0.005% Op Soln 50 Drops/2.5 Ml Bottle EYE-BOTH 02/23/25 10:59 1drops DAILY [facility] Administration Levothyroxine Sodium 50 mcg 02/24/24 09:40 02/27/24 06:17 Levothyroxine 50 Mcg Tablet PO 02/23/25 09:39 50 mcg DAILY@0630 [facility] Administration Metoprolol Tartrate 50 mg 02/24/24 16:00 02/27/24 08:21 Metoprolol Tartrate 50 Mg Tablet PO 02/23/25 15:59 50 mg BID [facility] Administration Ondansetron HCl 4 mg 02/20/24 22:07 Ondansetron 4 Mg/2 Ml Vial IV-PUSH 02/19/25 22:06 Q8H PRN Nausea And Vomiting Pantoprazole Sodium 40 mg 02/24/24 21:00 02/27/24 08:21 Pantoprazole 40 Mg Tablet.Dr PO 02/23/25 20:59 40 mg BID [facility] Administration Phenyleph/Shark Oil/Colerain Butter 1 supp 02/26/24 21:00 02/27/24 08:21 Phenylephrine/Colerain Butter 6.25 Mg/2211 Mg 1 Supp VA 02/25/25 20:59 1 supp BID [facility] Administration Polyethylene Glycol 17 gm 02/27/24 10:04 Polyethylene Glycol 3350 17 Gm Powd.Pack PO 02/26/25 10:03 DAILY PRN Constipation Pravastatin Sodium 40 mg 02/24/24 22:00 02/26/24 22:49 Pravastatin 40 Mg Tablet PO 02/23/25 21:59 40 mg QHS [facility] Administration Timolol Maleate 1 drops 02/24/24 11:00 02/27/24 08:21 Timolol Mal 0.5% Op Soln 100 Drops/5 Ml Bottle EYE-BOTH 02/23/25 10:59 1 drops DAILY [facility] Administration Vitamin D 50 mcg 02/25/24 09:00 02/27/24 08:21 Cholecalciferol 25 Mcg (1,000 Units) Tablet PO 02/24/25 08:59 50 mcg DAILY [facility] Administration A&P - Hospitalist Assessment/Plan (1) Leukocytosis: (2) Falls: (3) GERD (gastroesophageal reflux disease): (4) DM type 2 (diabetes mellitus, type 2): (5) Essential hypertension: (6) Persistent atrial fibrillation: Plan Right groin ulcerated wound with purulent drainage Leukocytosis Reports less drainage. CT of the pelvis negative for fluid collection -IV doxycycline, transition to p.o. doxycycline on discharge -Follow-up superficial wound culture Persistent atrial fibrillation Chronic anticoagulation with Eliquis Patient does now have rate controlled atrial fibrillation. -Continue to monitor on telemetry Rhabdomyolysis CPK down-trended appropriately. Renal function stable. Troponin Elevation Does not appear consistent with acute coronary syndrome. Initial troponin was 127, and trend did go to 135. Low suspicion for ACS given patient not having cardiorespiratory complaints. This could be in the setting of groin infection and mild groin cellulitis with purulent fluid drainage -Continue to monitor on telemetry -Appreciate cardiology recommendations Fall Generalized weakness -Continue PT/OT Other chronic medical conditions noted below, continue home regimens unless otherwise specified (Home medications need to be reconciled): NIDDM hypothyroidism GERD HTN CODE STATUS: Full Code Disposition: Patient is awaiting placement and insurance precertification has been submitted. Documented By: Anand Khan DO 02/27/24 1126 Signed By: <Electronically signed by Anand Khan DO> 02/27/[address] [facility] Work Phone: 1(715) 425-388506-23-2024 Progress note Author Navi Torres [facility] February 25, 2024 4:11pm Note Date/Time February 25, 2024 4:03 pm [facility] [address] [place] [address] Hospitalist Progress Note Signed Patient: Love Martinez MR#: [id number] : 1940 Acct:[id number] Age/Sex: 83 / F Adm Date: 4 Loc: 3T Room: [address] [place] [address] Type: ADM IN Attending Dr: Navi Torres MD Copies to: ~ Date of Service: 02/25/2024 Subjective Subjective Narrative: No acute events noted overnight. Patient does remain in rate controlled atrial fibrillation. Denies any fever/chill, chest pain, nausea/vomiting. Very minimal drainage noted to the right groin area Exam Physical Exam Vital Signs: Temp Pulse Resp BP Pulse Ox O2 Del Method 97.9 F 94 18 145/81 H 97 Room Air 02/25/24 11:30 02/25/24 11:30 02/25/24 11:30 02/25/24 11:30 02/25/24 11:30 02/25/24 11:30 Narrative: Constitutional: Elderly WF, resting in bed comfortably HEENT: Moist mucous membranes, neck supple Cardiovascular: Normal rate, irregular rhythm, no M/R/G, normal S1 and S2, no JVD Respiratory: Lungs clear to auscultation bilaterally, no wheezes, rales or rhonchi GI: Soft, NTND, normoactive bowel sounds : Deferred Neuro: AAO x3, no focal deficits. CN III-XII grossly intact, Strength 5/5 throughout Extremities: No clubbing, cyanosis or edema Skin: Did not visualize groin wound today Psych: Patient calm, cooperative and conversant Objective Lab Results 02/25/24 06:07 02/25/24 06:07 Meds Allergies and Active Meds Allergies No Known Allergies Allergy (Verified 02/20/24 23:01) Active Meds: Active Medications Generic Name Dose Route Start Last Admin Trade Name Freq PRN Reason Stop Dose Admin Acetaminophen 650 mg 02/20/24 22:07 Acetaminophen 325 Mg Tablet PO 02/19/25 22:06 Q6HR PRN Pain Scale 1 - 3 or fever Apixaban 5 mg 02/24/24 09:40 02/25/24 08:41 Apixaban 5 Mg Tablet PO 02/23/25 09:39 5 mg BID [facility] Administration Dextrose 0 gm 02/20/24 22:07 Dextrose 50% In Water 25 Gm/50 Ml Syringe IV-PUSH 02/19/25 22:06 PRN PRN Hypoglycemia Doxycycline Hyclate 100 mg 02/23/24 23:00 02/25/24 11:34 Doxycycline Hyclate 100 Mg Tablet PO 100 mg Q12H [facility] Administration Glucose 0 gm 02/20/24 22:07 Dextrose 40% Gel 15 Gm Tube PO 02/19/25 22:06 PRN PRN Hypoglycemia Hydrochlorothiazide 25 mg 02/24/24 09:40 02/25/24 08:41 Hydrochlorothiazide 25 Mg Tablet PO 02/23/25 09:39 25 mg DAILY [facility] Administration Insulin Aspart 0 units 02/23/24 12:00 02/25/24 11:34 Insulin Aspart 300 Units/3 Ml Insuln.Pen SUBCUT 02/22/25 11:59 1 units TID.WM.[facility] Administration Protocol Latanoprost 1 drops 02/24/24 11:00 02/24/24 11:42 Latanoprost 0.005% Op Soln 50 Drops/2.5 Ml Bottle EYE-BOTH 02/23/25 10:59 1drops DAILY [facility] Administration Levothyroxine Sodium 50 mcg 02/24/24 09:40 02/25/24 06:18 Levothyroxine 50 Mcg Tablet PO 02/23/25 09:39 50 mcg DAILY@0630 [facility] Administration Metoprolol Tartrate 50 mg 02/24/24 16:00 02/25/24 08:41 Metoprolol Tartrate 50 Mg Tablet PO 02/23/25 15:59 50 mg BID [facility] Administration Ondansetron HCl 4 mg 02/20/24 22:07 Ondansetron 4 Mg/2 Ml Vial IV-PUSH 02/19/25 22:06 Q8H PRN Nausea And Vomiting Pantoprazole Sodium 40 mg 02/24/24 21:00 02/25/24 08:41 Pantoprazole 40 Mg Tablet.Dr PO 02/23/25 20:59 40 mg BID [facility] Administration Pravastatin Sodium 40 mg 02/24/24 22:00 02/24/24 22:02 Pravastatin 40 Mg Tablet PO 02/23/25 21:59 40 mg QHS [facility] Administration Timolol Maleate 1 drops 02/24/24 11:00 02/25/24 08:42 Timolol Mal 0.5% Op Soln 100 Drops/5 Ml Bottle EYE-BOTH 02/23/25 10:59 1 drops DAILY [facility] Administration Vitamin D 50 mcg 02/25/24 09:00 02/25/24 08:41 Cholecalciferol 25 Mcg (1,000 Units) Tablet PO 02/24/25 08:59 50 mcg DAILY [facility] Administration A&P - Hospitalist Assessment/Plan (1) Leukocytosis: (2) Falls: (3) GERD (gastroesophageal reflux disease): (4) DM type 2 (diabetes mellitus, type 2): (5) Essential hypertension: (6) Persistent atrial fibrillation: Plan Right groin ulcerated wound with purulent drainage Leukocytosis Reports less drainage. CT of the pelvis negative for fluid collection -IV doxycycline, transition to p.o. doxycycline on discharge -Follow-up superficial wound culture Persistent atrial fibrillation Chronic anticoagulation with Eliquis Patient does now have rate controlled atrial fibrillation. -Continue to monitor on telemetry Rhabdomyolysis CPK down-trended appropriately. Renal function stable. -Will no longer trend CPK Troponin Elevation Does not appear consistent with acute coronary syndrome. Initial troponin was 127, and trend did go to 135. Low suspicion for ACS given patient not having cardiorespiratory complaints. This could be in the setting of groin infection and mild groin cellulitis with purulent fluid drainage -Continue to monitor on telemetry -Appreciate cardiology recommendations Fall Generalized weakness -Continue PT/OT Other chronic medical conditions noted below, continue home regimens unless otherwise specified (Home medications need to be reconciled): NIDDM hypothyroidism GERD HTN CODE STATUS: Full Code Disposition: Patient is awaiting placement and insurance precertification has been submitted. Documented By: Navi Torres MD [id number] Signed By: <Electronically signed by Navi Torres MD> 02/25/[address] [facility] Work Phone: 1(222) 152-752606-22-2024 Progress note Author Navi Torres [facility] February 24, 2024 12:55pm Note Date/Time February 24, 2024 12:4 4pm [facility] [address] [place] [address] Hospitalist Progress Note Signed Patient: Love Martinez MR#: [id number] : 1940 Acct:[id number] Age/Sex: 83 / F Adm Date: 4 Loc: 3T Room: [address] [place] [address] Type: ADM IN Attending Dr: Navi Torres MD Copies to: ~ Date of Service: 02/24/2024 Subjective Subjective Narrative: Patient developed tachycardia this a.m. She notes no cardiorespiratory complaints on my assessment. She is noted to be in A-fib RVR. She had been held on her atenolol other home medications up until today. Exam Physical Exam Vital Signs: Temp Pulse Resp BP Pulse Ox O2 Del Method 98 F 112 H 18 164/89 H 96 Room Air 02/24/24 11:41 02/24/24 11:41 02/24/24 11:41 02/24/24 11:41 02/24/24 11:41 02/24/24 11:41 Narrative: Constitutional: Elderly WF, resting in bed comfortably HEENT: Moist mucous membranes, neck supple Cardiovascular: Normal rate, irregular rhythm, no M/R/G, normal S1 and S2, no JVD Respiratory: Lungs clear to auscultation bilaterally, no wheezes, rales or rhonchi GI: Soft, NTND, normoactive bowel sounds : Deferred Neuro: AAO x3, no focal deficits. CN III-XII grossly intact, Strength 5/5 throughout Extremities: No clubbing, cyanosis or edema Skin: Did not visualize groin wound today Psych: Patient calm, cooperative and conversant Objective Lab Results 02/24/24 06:56 02/24/24 06:56 Microbiology Results Microbiology 02/21/24 10:50 Perineal Superficial Wound Culture - Final Light Normal Skin Teressa 2 Days Meds Allergies and Active Meds Allergies No Known Allergies Allergy (Verified 02/20/24 23:01) Active Meds: Active Medications Generic Name Dose Route Start Last Admin Trade Name Freq PRN Reason Stop Dose Admin Acetaminophen 650 mg 02/20/24 22:07 Acetaminophen 325 Mg Tablet PO 02/19/25 22:06 Q6HR PRN Pain Scale 1 - 3 or fever Apixaban 5 mg 02/24/24 09:40 02/24/24 11:42 Apixaban 5 Mg Tablet PO 02/23/25 09:39 5 mg BID [facility] Administration Dextrose 0 gm 02/20/24 22:07 Dextrose 50% In Water 25 Gm/50 Ml Syringe IV-PUSH 02/19/25 22:06 PRN PRN Hypoglycemia Doxycycline Hyclate 100 mg 02/23/24 23:00 02/24/24 11:41 Doxycycline Hyclate 100 Mg Tablet PO 100 mg Q12H [facility] Administration Glucose 0 gm 02/20/24 22:07 Dextrose 40% Gel 15 Gm Tube PO 02/19/25 22:06 PRN PRN Hypoglycemia Hydrochlorothiazide 25 mg 02/24/24 09:40 02/24/24 11:41 Hydrochlorothiazide 25 Mg Tablet PO 02/23/25 09:39 25 mg DAILY [facility] Administration Insulin Aspart 0 units 02/23/24 12:00 02/24/24 11:42 Insulin Aspart 300 Units/3 Ml Insuln.Pen SUBCUT 02/22/25 11:59 Not Given TID.[facility] Protocol Latanoprost 1 drops 02/24/24 11:00 02/24/24 11:42 Latanoprost 0.005% Op Soln 50 Drops/2.5 Ml Bottle EYE-BOTH 02/23/25 10:59 1drops DAILY [facility] Administration Levothyroxine Sodium 50 mcg 02/24/24 09:40 02/24/24 11:42 Levothyroxine 50 Mcg Tablet PO 02/23/25 09:39 50 mcg DAILY@0630 [facility] Administration Metoprolol Tartrate 50 mg 02/24/24 21:00 Metoprolol Tartrate 50 Mg Tablet PO 02/23/25 20:59 BID [facility] Ondansetron HCl 4 mg 02/20/24 22:07 Ondansetron 4 Mg/2 Ml Vial IV-PUSH 02/19/25 22:06 Q8H PRN Nausea And Vomiting Pantoprazole Sodium 40 mg 02/24/24 21:00 Pantoprazole 40 Mg Tablet. PO 02/23/25 20:59 BID [facility] Pravastatin Sodium 40 mg 02/24/24 22:00 Pravastatin 40 Mg Tablet PO 02/23/25 21:59 QHS [facility] Timolol Maleate 1 drops 02/24/24 11:00 02/24/24 11:42 Timolol Mal 0.5% Op Soln 100 Drops/5 Ml Bottle EYE-BOTH 02/23/25 10:59 1 drops DAILY [facility] Administration Vitamin D 50 mcg 02/25/24 09:00 Cholecalciferol 25 Mcg (1,000 Units) Tablet PO 02/24/25 08:59 DAILY [facility] A&P - Hospitalist Assessment/Plan (1) Leukocytosis: (2) Falls: (3) GERD (gastroesophageal reflux disease): (4) DM type 2 (diabetes mellitus, type 2): (5) Essential hypertension: (6) Persistent atrial fibrillation: Plan Right groin ulcerated wound with purulent drainage Leukocytosis Reports less drainage. CT of the pelvis negative for fluid collection -IV doxycycline, transition to p.o. doxycycline on discharge -Follow-up superficial wound culture Paroxysmal atrial fibrillation Chronic anticoagulation with Eliquis Patient does now have A-fib RVR. Atenolol has been held, did restart today. Wewill restart patient's blood thinner as well -Continue to monitor on telemetry Rhabdomyolysis CPK down trended appropriately. -Trend CPK Troponin Elevation Does not appear consistent with acute coronary syndrome. Initial troponin was 127, and trend did go to 135. Low suspicion for ACS given patient not having cardiorespiratory complaints. This could be in the setting of groin infection and mild groin cellulitis with purulent fluid drainage -Continue to monitor on telemetry -Appreciate cardiology recommendations Fall Generalized weakness -Continue PT/OT Other chronic medical conditions noted below, continue home regimens unless otherwise specified (Home medications need to be reconciled): NIDDM hypothyroidism GERD HTN CODE STATUS: Full Code Disposition: Patient is awaiting placement and insurance precertification has been submitted. Documented By: Navi Torres MD [id number] Signed By: <Electronically signed by Navi Torres MD> 02/24/24 3288 [facility] Work Phone: 1(448) 934-397106-22-2024 Progress note Author Navi Torres [facility] February 23, 2024 11:25pm Note Date/Time February 23, 2024 11:2 5pm [facility] [address] [place] [address] Hospitalist Progress Note Signed Patient: Love Martinez MR#: [id number] : 1940 Acct:[id number] Age/Sex: 83 / F Adm Date: 4 Loc: Room: [address] [place] [address] Type: ADM IN Attending Dr: Navi Torres MD Copies to: ~ Date of Service: 02/23/2024 Subjective Subjective Narrative: Patient feels well overall. Awaiting SNF placement at this time. No acute events noted overnight. Patient notes that she had a large amount of drainage for a brief period of time and her right groin area, but this has since subsided. Exam Physical Exam Vital Signs: Temp Pulse Resp BP Pulse Ox O2 Del Method 98.6 F 95 16 137/72 98 Room Air 02/23/24 20:00 02/23/24 20:00 02/23/24 20:00 02/23/24 20:00 02/23/24 20:00 02/23/24 20:00 Narrative: Constitutional: Elderly WF, resting in bed comfortably HEENT: Moist mucous membranes, neck supple Cardiovascular: RRR, no M/R/G, normal S1 and S2, no JVD Respiratory: Lungs clear to auscultation bilaterally, no wheezes, rales or rhonchi GI: Soft, NTND, normoactive bowel sounds : Deferred Neuro: AAO x3, no focal deficits. CN III-XII grossly intact, Strength 5/5 throughout Extremities: No clubbing, cyanosis or edema Skin: Punctate area that is 0.5 x 1 cm in the right groin lateral to the right labia. It is draining foul-smelling yellow, thin pus. Psych: Patient calm, cooperative and conversant Objective Lab Results 02/23/24 06:30 02/23/24 06:30 Microbiology Results Microbiology 02/21/24 10:50 Perineal Superficial Wound Culture - Final Light Normal Skin Teressa 2 Days Meds Allergies and Active Meds Allergies No Known Allergies Allergy (Verified 02/20/24 23:01) Active Meds: Active Medications Generic Name Dose Route Start Last Admin Trade Name Freq PRN Reason Stop Dose Admin Acetaminophen 650 mg 02/20/24 22:07 Acetaminophen 325 Mg Tablet PO 02/19/25 22:06 Q6HR PRN Pain Scale 1 - 3 or fever Dextrose 0 gm 02/20/24 22:07 Dextrose 50% In Water 25 Gm/50 Ml Syringe IV-PUSH 02/19/25 22:06 PRN PRN Hypoglycemia Doxycycline Hyclate 100 mg 02/23/24 23:00 02/23/24 22:00 Doxycycline Hyclate 100 Mg Tablet PO 100 mg Q12H [facility] Administration Glucose 0 gm 02/20/24 22:07 Dextrose 40% Gel 15 Gm Tube PO 02/19/25 22:06 PRN PRN Hypoglycemia Insulin Aspart 0 units 02/23/24 12:00 02/23/24 21:54 Insulin Aspart 300 Units/3 Ml Insuln.Pen SUBCUT 02/22/25 11:59 1 units TID.[facility] Administration Protocol Ondansetron HCl 4 mg 02/20/24 22:07 Ondansetron 4 Mg/2 Ml Vial IV-PUSH 02/19/25 22:06 Q8H PRN Nausea And Vomiting A&P - Hospitalist Assessment/Plan (1) Leukocytosis: (2) Falls: (3) GERD (gastroesophageal reflux disease): (4) DM type 2 (diabetes mellitus, type 2): (5) Essential hypertension: (6) Persistent atrial fibrillation: Plan Right groin ulcerated wound with purulent drainage Leukocytosis Patient notes less drainage from the right groin wound. CT of the pelvis negative for fluid collection -IV doxycycline, transition to p.o. doxycycline on discharge if no major abscessnoted -Follow-up superficial wound culture Rhabdomyolysis CPK down trended from 1862 down to 464. -Trend CPK Troponin Elevation Does not appear consistent with acute coronary syndrome. Initial troponin was 127, and trend did go to 135. Low suspicion for ACS given patient not having cardiorespiratory complaints. This could be in the setting of groin infection and mild groin cellulitis with purulent fluid drainage -Continue to monitor on telemetry -Appreciate cardiology recommendations Paroxysmal atrial fibrillation Chronic anticoagulation with Eliquis Patient does remain in rate controlled atrial fibrillation. -Continue to monitor on telemetry Fall Generalized weakness -Continue PT/OT Other chronic medical conditions noted below, continue home regimens unless otherwise specified (Home medications need to be reconciled): NIDDM hypothyroidism GERD HTN CODE STATUS: Full Code Disposition: Patient is awaiting placement and insurance precertification has been submitted. Documented By: Navi Torres MD [id number] Signed By: <Electronically signed by Navi Torres MD> 02/23/24 2941 [facility] Work Phone: 1(644) 803-544606-20-2024 Progress note Author Navi Torres [facility] February 22, 2024 3:10pm Note Date/Time February 22, 2024 2:21 pm [facility] [address] [place] [address] Hospitalist Progress Note Signed Patient: Love Martinez MR#: [id number] : 1940 Acct:[id number] Age/Sex: 83 / F Adm Date: 4 Loc: Room: [address] [place] [address] Type: ADM IN Attending Dr: Navi Torres MD Copies to: ~ Date of Service: 02/22/2024 Subjective Subjective Narrative: Patient does feel overall improvement in her symptomatology today. Denies any fever/chill, chest pain, nausea/vomiting or other symptoms at this time. Exam Physical Exam Vital Signs: Temp Pulse Resp BP Pulse Ox O2 Del Method 97.6 F 95 16 129/76 97 Room Air 02/22/24 08:00 02/22/24 11:32 02/22/24 11:32 02/22/24 11:32 02/22/24 11:32 02/22/24 11:32 Narrative: Constitutional: Elderly WF, resting in bed comfortably HEENT: Moist mucous membranes, neck supple Cardiovascular: RRR, no M/R/G, normal S1 and S2, no JVD Respiratory: Lungs clear to auscultation bilaterally, no wheezes, rales or rhonchi GI: Soft, NTND, normoactive bowel sounds : Deferred Neuro: AAO x3, no focal deficits. CN III-XII grossly intact, Strength 5/5 throughout Extremities: No clubbing, cyanosis or edema Skin: Punctate area that is 0.5 x 1 cm in the right groin lateral to the right labia. It is draining foul-smelling yellow, thin pus. Psych: Patient calm, cooperative and conversant Objective Lab Results 02/22/24 06:17 02/22/24 06:17 Microbiology Results Microbiology 02/21/24 10:50 Perineal Superficial Wound Culture - Preliminary Light Normal Skin Teressa 1 Day Meds Allergies and Active Meds Allergies No Known Allergies Allergy (Verified 02/20/24 23:01) Active Meds: Active Medications Generic Name Dose Route Start Last Admin Trade Name Freq PRN Reason Stop Dose Admin Acetaminophen 650 mg 02/20/24 22:07 Acetaminophen 325 Mg Tablet PO 02/19/25 22:06 Q6HR PRN Pain Scale 1 - 3 or fever Dextrose 0 gm 02/20/24 22:07 Dextrose 50% In Water 25 Gm/50 Ml Syringe IV-PUSH 02/19/25 22:06 PRN PRN Hypoglycemia Glucose 0 gm 02/20/24 22:07 Dextrose 40% Gel 15 Gm Tube PO 02/19/25 22:06 PRN PRN Hypoglycemia Doxycycline Hyclate 100 mg in 100 mls @ 100 mls/hr 02/21/24 20:30 02/22/24 11:15 Doxy 100 IV 100 mls/hr Q12H [facility] Administration Insulin Aspart 0 units 02/21/24 08:00 02/22/24 11:49 Insulin Aspart 300 Units/3 Ml Insuln.Pen SUBCUT 02/20/25 07:59 Not Given TID.WM.HS CORAZON Protocol Ondansetron HCl 4 mg 02/20/24 22:07 Ondansetron 4 Mg/2 Ml Vial IV-PUSH 02/19/25 22:06 Q8H PRN Nausea And Vomiting A&P - Hospitalist Assessment/Plan (1) Leukocytosis: (2) Falls: (3) GERD (gastroesophageal reflux disease): (4) DM type 2 (diabetes mellitus, type 2): (5) Essential hypertension: (6) Persistent atrial fibrillation: Plan Right groin ulcerated wound with purulent drainage Leukocytosis Patient notes less drainage from the right groin wound. CT of the pelvis negative for fluid collection -Start IV doxycycline, transition to p.o. doxycycline on discharge if no major abscess noted -Follow-up superficial wound culture Rhabdomyolysis CPK down trended from 1862 down to 464. -Trend CPK Troponin Elevation Does not appear consistent with acute coronary syndrome. Initial troponin was 127, and trend did go to 135. Low suspicion for ACS given patient not having cardiorespiratory complaints. This could be in the setting of groin infection and mild groin cellulitis with purulent fluid drainage -Continue to monitor on telemetry -Appreciate cardiology recommendations Paroxysmal atrial fibrillation Chronic anticoagulation with Eliquis Patient does remain in rate controlled atrial fibrillation. -Continue to monitor on telemetry Fall Generalized weakness -Continue PT/OT Other chronic medical conditions noted below, continue home regimens unless otherwise specified (Home medications need to be reconciled): NIDDM hypothyroidism GERD HTN CODE STATUS: Full Code Disposition: Patient is awaiting placement and insurance precertification has been submitted. Documented By: Navi Torres MD 4 1416 Signed By: <Electronically signed by Navi Torres MD> 02/22/24 1515 [facility] Work Phone: 1([phone]) 495-161606-20-2024 Progress note Author Ana Lilia May [facility] February 22, 2024 2:21pm Note Date/Time February 22, 2024 2:06 pm [facility] [address] [place] [address] Cardiology Progress Note Signed Patient: Love Martinez MR#: [id number] : 1940 Acct:[id number] Age/Sex: 83 / F Adm Date: 4 Loc: Room: [address] [place] [address] Type: ADM IN Attending Dr: Navi Torres MD Copies to: ~ Date of Service: 02/22/2024 Subjective Interval history: Ms. Martinez is a 83 year old female with past medical history significant for persistent A-fib on Eliquis, diabetes type 2, hypertension, GERD, hypothyroidismwho presented as a transfer from the [facility] ED complaining of weakness in bilateral lower extremities. Patient states that she was using the bathroom on the morning of admission when she was unable to get off the toilet due to weakness of bilateral lower extremities. She denied upper extremity weakness. No denied chest pain, dyspnea, palpitations, lightheadedness or syncope. EMS was called and was transferred to [facility]. EKG showed atrial fibrillation with heart rate of 80 bpm and was reported to have [address] depression in V4 and V5. Labs were significant for WBC of 16, troponin of 127--135. He was then transferred to [facility] for further management. On arrival here EKG showed atrial fibrillation with no ischemic changes. Troponin was mildly elevated 35--29. On evaluation, patient continues to complain of lower extremity weakness but denies any chest pain or dyspnea. Interim evaluation 02/22/2024: No acute events overnight. Pt denies chest pain ordyspnea. She states her leg weakness has improved and worked with PT this am. She is on Doxycycline for right groin abscess. Exam Physical Exam Vital Signs: Temp Pulse Resp BP Pulse Ox O2 Del Method 97.6 F 95 16 129/76 97 Room Air 02/22/24 08:00 02/22/24 11:32 02/22/24 11:32 02/22/24 11:32 02/22/24 11:32 02/22/24 11:32 Narrative: GEN: AAOx3. No acute distress. Neck: No JVD. Lungs: Clear to auscultation bilaterally Heart: Regular rate and rhythm. Normal S1 and S2. No murmurs or rubs appreciated. Abdomen: Soft, nontender, nondistended, bowel sounds present. Extremities: No BLE edema. Neuro: AAOx3. 4/5 strength in bilateral lower extremities. Objective Labs 02/22/24 06:17 02/22/24 06:17 Labs: Laboratory Results - last 24 hr 02/21/24 02/21/24 02/22/24 16:26 20:55 06:17 Corrected WBC 6.5 Uncorrected WBC Count 6.5 RBC 3.58 L Hgb 10.6 L Hct 31.7 L MCV 88.5 MCH 29.5 MCHC 33.4 RDW 15.1 Plt Count 212 MPV 8.5 Neut % (Auto) 68.8 Lymph % (Auto) 15.6 [place] % (Auto) 9.8 Eos % (Auto) 5.2 Baso % (Auto) 0.6 Nucleat RBC Rel Count 0.0 Neut # (Auto) 4.5 Lymph # (Auto) 1.0 [place] # (Auto) 0.6 Eos # (Auto) 0.3 Baso # (Auto) 0.0 PHA Creatinine Clear 61.63 Sodium 140 Potassium 3.7 Chloride 105 Carbon Dioxide 29.3 Anion Gap 9.4 BUN 25 Creatinine 0.53 L Est GFR (CKD-EPI) > 60.0 Glucose 161 H POC Glucose 191 200 POC Glucose Comment Calcium 8.4 L Total Bilirubin 0.6 AST 33 ALT 17 Alkaline Phosphatase 66 Total Creatine Kinase 464 H Total Protein 6.1 L Albumin 3.3 L Globulin 2.8 Albumin/Globulin Ratio 1.2 02/22/24 02/22/24 06:41 11:30 Corrected WBC Uncorrected WBC Count RBC Hgb Hct MCV MCH MCHC RDW Plt Count MPV Neut % (Auto) Lymph % (Auto) [place] % (Auto) Eos % (Auto) Baso % (Auto) Nucleat RBC Rel Count Neut # (Auto) Lymph # (Auto) [place] # (Auto) Eos # (Auto) Baso # (Auto) PHA Creatinine Clear Sodium Potassium Chloride Carbon Dioxide Anion Gap BUN Creatinine Est GFR (CKD-EPI) Glucose POC Glucose 171 158 POC Glucose Comment Glu2: cleaned meter Calcium Total Bilirubin AST ALT Alkaline Phosphatase Total Creatine Kinase Total Protein Albumin Globulin Albumin/Globulin Ratio A&P - Cardiology (1) Elevated troponin: Code(s): R79.89 - Other specified abnormal findings of blood chemistry (2) Paraparesis of both lower limbs: Code(s): G82.20 - Paraplegia, unspecified (3) Persistent atrial fibrillation: Code(s): I48.19 - Other persistent atrial fibrillation (4) Essential hypertension: Code(s): I10 - Essential (primary) hypertension (5) DM type 2 (diabetes mellitus, type 2): Code(s): E11.9 - Type 2 diabetes mellitus without complications (6) GERD (gastroesophageal reflux disease): Code(s): K21.9 - Gastro-esophageal reflux disease without esophagitis Plan Assessment: New bilateral paraparesis Non ACS troponin elevation Persistent Afib on Eliquis HTN DM II GERD Hypothyroidism Plan: - No concern for ACS. No cardiac symptoms reported. EKG showed no ischemic changes. - Preliminary ECHO findings: Normal LVEF 60-65%; normal wall motion, Severely dilated atria, Trace MR, Mild TR - Leg weakness is improving. Currently on doxycycline for R groin abscess - Will arrange for [facility] cardiology follow up in 6 weeks and will plan for Lexiscan stress MPI on follow up. - Cardiology will sign off. Please call with questions. Documented By: Ana Lilia May MD 02/22/24 2340 Signed By: <Electronically signed by Ana Lilia May MD> 02/22/[address] [facility] Work Phone: 1(632) 373-883406-20-2024 History and physical note Author Cash Abreu [facility] February 22, 2024 8:47am Note Date/Time February 20, 2024 10:2 1pm [facility] [address] [place] [address] Hospitalist H&P Signed Patient: Love Martinez MR#: [id number] : 1940 Acct:[id number] Age/Sex: 83 / F Adm Date: 4 Loc: 3T Room: [address] [place] [address] Type: ADM IN Attending Dr: Navi Torres MD Copies to: MD Navi Dietrich MD Nolan Lincolnpepeirchard DISPLAY CARD WRITER-[facility]~ [facility] DATE OF EXAMINATION: 02/20/24 CHIEF COMPLAINT: generalized weakness HISTORY OF PRESENT ILLNESS: 83 year old woman with history of PAF on eliquis, NIDDM2, hypothyroidism, GERD, HTN who presented to [facility] ED complaining of generalized weakness. Per the patient, this morning she was using the toilet- when she tried to get off she noted that my legs felt like rubber and she was unable to get off the toilet. Pt states she uses an elevated toilet and often uses a lift chair and is typically able to ambulate about her house normally- however this morning she found herself unable to do so. pt denies any lateralizing weakness, parethesia, vision changes or headache and has had no fever cough dyspnea chest pain or lightheadedness. Pt presented to [facility] for evaluation, vitals signs on arrival were WNL. CXR and head CT were unremarkable. lab studies notable for WBC 16K, K 3.5, troponin 127 -> 135. ECG at [facility] revealed atrial fibrillation with ventricular rate of 80 bpm, ~1mm ST depression in V4 and V5. Pt was transferred to this hospital for further evaluation. Pt feels well and denies any current complaints ROS: 10 systems reviewed and were negative except as noted in the HPI PMFSH Social History Smoking Status: Never smoker Substance Use Type: None Meds Medications and Allergies Allergies No Known Allergies Allergy (Verified 02/20/24 23:01) Home Medications apixaban 5 mg tablet (Eliquis) 5 mg 02/21/24 [History] atenolol 50 mg tablet 50 mg 02/21/24 [History] cholecalciferol (vitamin D3) 50 mcg (2,000 unit) capsule 50 mcg PO DAILY 02/21/24 [History Confirmed 02/21/24] hydrochlorothiazide 25 mg tablet 25 mg 02/21/24 [History] latanoprost 0.005 % eye drops 1 drp Eye-Both DAILY 02/21/24 [History Confirmed 02/21/24] levothyroxine 50 mcg tablet (Synthroid) 50 mcg 02/21/24 [History] metformin 500 mg tablet,extended release 24 hr 500 mg PO 02/21/24 [History] omeprazole 40 mg capsule,delayed release 40 mg 02/21/24 [History] pravastatin 40 mg tablet 40 mg 02/21/24 [History] timolol 0.5 % eye drops 1 drp Eye-Both DAILY 02/21/24 [History Confirmed 02/21/24] Assessment & Plan Assessment/Plan (1) Leukocytosis: (2) Falls: (3) GERD (gastroesophageal reflux disease): (4) DM type 2 (diabetes mellitus, type 2): (5) Essential hypertension: (6) Persistent atrial fibrillation: Plan Right groin ulcerated wound with purulent drainage Leukocytosis Patient presented to outside hospital with WBC of 15.8. Repeat this a.m. was 10.1. Patient does have 0.5 x 1 cm draining wound in the right groin area, justlateral to the right labia. Given patient's presentation with leukocytosis and complaints of weakness, will obtain further imaging to elucidate how deep this wound goes. Chest x-ray and urinalysis within normal limits. -CT of the pelvis with IV contrast for further elucidation -Start IV doxycycline, transition to p.o. doxycycline on discharge if no major abscess noted -Follow-up superficial wound culture Rhabdomyolysis CPK elevated at 1862. -Trend CPK Troponin Elevation Does not appear consistent with acute coronary syndrome. Initial troponin was 127, and trend did go to 135. Low suspicion for ACS given patient not having cardiorespiratory complaints. This could be in the setting of groin infection and mild groin cellulitis with abscess -Continue to monitor on telemetry -Appreciate cardiology recommendations Paroxysmal atrial fibrillation Chronic anticoagulation with Eliquis Patient does remain in rate controlled atrial fibrillation. -Continue to monitor on telemetry Fall Generalized weakness -Continue PT/OT Other chronic medical conditions noted below, continue home regimens unless otherwise specified (Home medications need to be reconciled): NIDDM hypothyroidism GERD HTN CODE STATUS: Full Code IP vs OBS Justification Based on differential dx, clinical care plan, and risk of adverse events, if untreated, in my clinical judgement this patient requires an acute care setting as: OBSERVATION because of an expectation of an under 2 midnight stay. Estimated length of stay (# of days): 2 Documented By: Cash Abreu MD 02/20/242216 Signed By: <Electronically signed by Cash Abreu MD> 02/22/[address] [facility] Work Phone: 1([phone]) 249-215206-19-2024 Progress note Author Navi Torres [facility] February 21, 2024 8:41pm Note Date/Time February 21, 2024 7:31 pm [facility] [address] [place] [address] Hospitalist Progress Note Signed with Addenda Patient: Love Martinez MR#: [id number] : 1940 Acct:[id number] Age/Sex: 83 / F Adm Date: 4 Loc: Room: [address] [place] [address] Type: ADM IN Attending Dr: Navi Torres MD Copies to: ~ ADDENDUM1 Constitutional: Elderly WF, resting in bed comfortably HEENT: Moist mucous membranes, neck supple Cardiovascular: RRR, no M/R/G, normal S1 and S2, no JVD Respiratory: Lungs clear to auscultation bilaterally, no wheezes, rales or rhonchi GI: Soft, NTND, normoactive bowel sounds : Deferred Neuro: AAO x3, no focal deficits. CN III-XII grossly intact, Strength 5/5 throughout Extremities: No clubbing, cyanosis or edema Skin: Punctate area that is 0.5 x 1 cm in the right groin lateral to the right labia. It is draining foul-smelling yellow, thin pus. Psych: Patient calm, cooperative and conversant Addendum Documented By: Navi Torres MD 02/21/242040 Addendum Signed By: <Electronically signed by Navi Torres MD> 02/21/242040 Date of Service: 02/21/2024 Subjective Subjective Narrative: Patient does not complain of further generalized weakness. She did have a fall before being admitted, but has mildly improved strength today. Exam Physical Exam Vital Signs: Temp Pulse Resp BP Pulse Ox O2 Del Method 97.9 F 68 16 135/71 99 Room Air 02/21/24 16:00 02/21/24 16:00 02/21/24 16:00 02/21/24 16:00 02/21/24 16:00 02/21/24 16:00 Objective Lab Results 02/21/24 05:41 02/21/24 05:41 Meds Allergies and Active Meds Allergies No Known Allergies Allergy (Verified 02/20/24 23:01) Active Meds: Active Medications Generic Name Dose Route Start Last Admin Trade Name Faisal PRN Reason Stop Dose Admin Acetaminophen 650 mg 02/20/24 22:07 Acetaminophen 325 Mg Tablet PO 02/19/25 22:06 Q6HR PRN Pain Scale 1 - 3 or fever Dextrose 0 gm 02/20/24 22:07 Dextrose 50% In Water 25 Gm/50 Ml Syringe IV-PUSH 02/19/25 22:06 PRN PRN Hypoglycemia Glucose 0 gm 02/20/24 22:07 Dextrose 40% Gel 15 Gm Tube PO 02/19/25 22:06 PRN PRN Hypoglycemia Insulin Aspart 0 units 02/21/24 08:00 02/21/24 16:31 Insulin Aspart 300 Units/3 Ml Insuln.Pen SUBCUT 02/20/25 07:59 1 units TID.WM.HS CORAZON Administration Protocol Ondansetron HCl 4 mg 02/20/24 22:07 Ondansetron 4 Mg/2 Ml Vial IV-PUSH 02/19/25 22:06 Q8H PRN Nausea And Vomiting A&P - Hospitalist Assessment/Plan (1) Leukocytosis: (2) Falls: (3) GERD (gastroesophageal reflux disease): (4) DM type 2 (diabetes mellitus, type 2): (5) Essential hypertension: (6) Persistent atrial fibrillation: Plan Right groin ulcerated wound with purulent drainage Leukocytosis Patient presented to outside hospital with WBC of 15.8. Repeat this a.m. was 10.1. Patient does have 0.5 x 1 cm draining wound in the right groin area, justlateral to the right labia. Given patient's presentation with leukocytosis and complaints of weakness, will obtain further imaging to elucidate how deep this wound goes. Chest x-ray and urinalysis within normal limits. -CT of the pelvis with IV contrast for further elucidation -Start IV doxycycline, transition to p.o. doxycycline on discharge if no major abscess noted -Follow-up superficial wound culture Rhabdomyolysis CPK elevated at 1862. -Trend CPK Troponin Elevation Does not appear consistent with acute coronary syndrome. Initial troponin was 127, and trend did go to 135. Low suspicion for ACS given patient not having cardiorespiratory complaints. This could be in the setting of groin infection and mild groin cellulitis with abscess -Continue to monitor on telemetry -Appreciate cardiology recommendations Paroxysmal atrial fibrillation Chronic anticoagulation with Eliquis Patient does remain in rate controlled atrial fibrillation. -Continue to monitor on telemetry Fall Generalized weakness -Continue PT/OT Other chronic medical conditions noted below, continue home regimens unless otherwise specified (Home medications need to be reconciled): NIDDM hypothyroidism GERD HTN CODE STATUS: Full Code Documented By: Navi Torres MD 1926 Signed By: <Electronically signed by Navi Torres MD> 02/21/242038 [facility] Work Phone: [phone] 794-631206-19-2024 Consult note Author Ana Lilia May [facility] February 21, 2024 4:53pm Note Date/Time February 21, 2024 4:48 pm [facility] [address] [place] [address] Cardiology Consult Note Signed Patient: Love Martinez MR#: [id number] : 1940 Acct:[id number] Age/Sex: 83 / F Adm Date: 4 Loc: Room: [address] [place] [address] Type: ADM IN Attending Dr: Navi Torres MD Copies to: MD Ana Lilia Michael MD Sarah A Kampfer DISPLAY CARD WRITER-SPEECH AND LANGUAGE CLINICIAN~ Cardiology HPI History of Present Illness Consult Date: 02/21/24 Reason for Consult: Elevated troponin and EKG changes HPI: Ms. Martinez is a 83 year old female with past medical history significant for persistent A-fib on Eliquis, diabetes type 2, hypertension, GERD, hypothyroidismwho presented as a transfer from the [facility] ED complaining of weakness in bilateral lower extremities. Patient states that she was using the bathroom on the morning of admission when she was unable to get off the toilet due to weakness of bilateral lower extremities. She denied upper extremity weakness. No denied chest pain, dyspnea, palpitations, lightheadedness or syncope. EMS was called and was transferred to [facility]. EKG showed atrial fibrillation with heart rate of 80 bpm and was reported to have [address] depression in V4 and V5. Labs were significant for WBC of 16, troponin of 127--135. He was then transferred to [facility] for further management. On arrival here EKG showed atrial fibrillation with no ischemic changes. Troponin was mildly elevated 35--29. On evaluation, patient continues to complain of lower extremity weakness but denies any chest pain or dyspnea. Review of Systems Review of Systems All other systems reviewed & are negative unless noted below or in [facility] Social History Smoking Status: Never smoker Substance Use Type: None Meds Medications and Allergies Allergies No Known Allergies Allergy (Verified 02/20/24 23:01) Exam Physical Exam Vital Signs: Temp Pulse Resp BP Pulse Ox O2 Del Method 97.9 F 68 16 135/71 99 Room Air 02/21/24 16:00 02/21/24 16:00 02/21/24 16:00 02/21/24 16:00 02/21/24 16:02/21/24 16:00 Narrative: GEN: AAOx3. No acute distress. Neck: No JVD. Lungs: Clear to auscultation bilaterally Heart: Regular rate and rhythm. Normal S1 and S2. No murmurs or rubs appreciated. Abdomen: Soft, nontender, nondistended, bowel sounds present. Extremities: No BLE edema. Neuro: AAOx3. 3/5 strength in bilateral lower extremities. Results - Cardiology Labs 02/21/24 05:41 02/21/24 05:41 Lab results: Cardiac Enzymes 02/20/24 02/21/24 Range/Units 22:23 05:41 AST 48 H (13-39) U/L B-Natriuretic Peptide 380.0 H (5-100) pg/mL Lipids 02/21/24 Range/Units 05:41 Triglycerides 98 (0-149) mg/dL Cholesterol 138 L (140-200) mg/dL HDL Cholesterol 45 (23-92) mg/dL Cholesterol/HDL Ratio 3.1 (<5.0) CBC 02/21/24 Range/Units 05:41 RBC 3.63 (3.60-5.00) X10E6/uL Hgb 10.8 L (11.8-15.4) g/dL Hct 32.0 L (34.0-46.4) % Plt Count 235 (150-450) x10E3/uL Neut # (Auto) 7.7 (1.8-7.7) x10E3/uL Lymph # (Auto) 1.1 (1.00-4.8) x10E3/uL [place] # (Auto) 0.9 H (0.0-0.8) x10E3/uL Eos # (Auto) 0.3 (0.0-0.45) x10E3/uL Baso # (Auto) 0.0 (0.0-0.2) x10E3/uL Comprehensive Metabolic Panel 02/21/24 Range/Units 05:41 Sodium 139 (136-145) mmol/L Potassium 3.7 (3.5-5.1) mmol/L Chloride 104 (98-107) mmol/L Carbon Dioxide 28.3 (21.0-31.0) mmol/L BUN 30 H (7-25) mg/dL Creatinine 0.66 (0.60-1.20) mg/dL Glucose 155 H (70-100) mg/dL Calcium 8.8 (8.6-10.3) mg/dL AST 48 H (13-39) U/L ALT 18 (7-52) U/L Alkaline Phosphatase 69 (34-104) U/L Total Protein 6.4 (6.4-8.9) gm/dL Albumin 3.5 (3.5-5.7) gm/dL Intake and Output 02/21/24 02/21/24 02/21/24 07:59 15:59 23:59 Intake Total 250 / 250 Output Total Balance 249 / 249 Intake: Oral 250 / 250 Output: Urine/Stool Mix Other: Weight 79.8 kg Date of Last Bowel Movement 02/21/24 Patient Weight 02/21/24 23:59 Weight 79.8 kg A&P - Cardiology (1) Elevated troponin: Code(s): R79.89 - Other specified abnormal findings of blood chemistry (2) Paraparesis of both lower limbs: Code(s): G82.20 - Paraplegia, unspecified (3) Persistent atrial fibrillation: Code(s): I48.19 - Other persistent atrial fibrillation (4) Essential hypertension: Code(s): I10 - Essential (primary) hypertension (5) DM type 2 (diabetes mellitus, type 2): Code(s): E11.9 - Type 2 diabetes mellitus without complications (6) GERD (gastroesophageal reflux disease): Code(s): K21.9 - Gastro-esophageal reflux disease without esophagitis Plan Assessment: New bilateral paraparesis Non ACS troponin elevation Persistent Afib on Eliquis HTN DM II GERD Hypothyroidism Plan: - No concern for ACS. No cardiac symptoms reported. EKG showed no ischemic changes. - Check ECHO to evaluate LV function and wall motion - Recommend Neuro evaluation for new bilateral paraparesis - Will follow Documented By: Ana Lilia May MD 02/21/24 4520 Signed By: <Electronically signed by Ana Lilia May MD> 02/21/24 4046 [facility] Work Phone: 1(608) 682-744402-07-2024 History of Present illness Narrative* Nolan Isabel NP - 10/11/2023 2:00 PM EST Love Martinez is a 83 y.o. female presents with chief complaint of [facility] Care and Medicare Annual Wellness Visit Subsequent HPI: Patient is here to [facility], and is also here for medicare wellness. She does need ?to have hydrochlorothiazide, omeprazole refilled. She goes through [employer] [facility] [employer] in [place]. Her9SLIDESband just passed on Monday. She is living with her younger sister. Over the past 2 weeks, how often have you been bothered by any of the following problems? Little interest or pleasure in doing things: Nearly every day Feeling down, depressed, or hopeless: Nearly every day Patient Health Questionnaire-2 Score: 6 Over the past 2 weeks, how often have you been bothered by any of the following problems? Trouble falling or staying asleep, or sleeping too much: Nearly every day Feeling tired or having little energy: Not at all Poor appetite or overeating: More than half the days Feeling bad about yourself - or that you are a failure or have let yourself or your family down: Several days Trouble concentrating on things, such as reading the newspaper or watching television: Not at all Moving or speaking so slowly that other people could have noticed? Or the opposite - being so fidgety or restless that you have been moving around a lot more than usual.: Several days Thoughts that you would be better off or hurting yourself in some way: Not at all Patient Health Questionnaire-9 Score: 13 [place] Fall Risk History of Falling, Immediate or Within 3 Months: No Health Risk Assessment Form Do you need help eating, bathing, using the toilet, dressing, or getting around your home?: Yes Can you prepare your own meals?: Yes Can you do your own housework without help?: No Can you shop for groceries or clothes without help?: No Do you exercise for about 20 minutes 3 or more days a week?: No How confident are you that you can control and manage most of your health problems?: Very confident Can you mange your money, credit cards and accounts, pay bills and taxes?: Yes Cognitive Screening Three Word Registration: Rylie Ji, Finger Clock Drawing: Normal Clock - 2 Three Word Recall: All 3 words correct - 3 Total Score (0-5 Points): 5 Pain Assessment Pain Score: 0 - No pain SUBJECTIVE: MEDICATIONS: Current Outpatient Medications Medication Instructions atenolol (TENORMIN) 50 mg, Oral, Daily hydroCHLOROthiazide (HYDRODIURIL) 25 mg, Oral, Daily levothyroxine (SYNTHROID, LEVOXYL) 50 mcg, Oral, Daily before breakfast metFORMIN XR (GLUCOPHAGE-XR) 500 mg, Oral, Daily with evening meal omeprazole (PRILOSEC) 40 mg, Oral, Daily before breakfast pravastatin (Pravachol) 40 MG tablet TAKE 1 TABLET DAILY pravastatin (PRAVACHOL) 40 mg, Oral, Daily REVIEW OF SYMPTOMS: Review of Systems OBJECTIVE: Visit Vitals BP 120/84 (BP Location: Left arm, Patient Position: Sitting, BP Cuff Size: Large adult) Pulse 79 Ht 5' 9 Wt 178 lb SpO2 95% BMI 26.29 kg/m Smoking Status Never BSA 1.98 m Physical Exam Vitals reviewed. HENT: Head: Normocephalic and atraumatic. Right Ear: Tympanic membrane normal. Left Ear: Tympanic membrane normal. Nose: Nose normal. Mouth/Throat: Mouth: Mucous membranes are moist. Eyes: Extraocular Movements: Extraocular movements intact. Pupils: Pupils are equal, round, and reactive to light. Cardiovascular: Rate and Rhythm: Normal rate and regular rhythm. Pulses: Normal pulses. Heart sounds: Normal heart sounds. Pulmonary: Effort: Pulmonary effort is normal. Breath sounds: Normal breath sounds. Abdominal: General: Bowel sounds are normal. Palpations: Abdomen is soft. Tenderness: There is no abdominal tenderness. Musculoskeletal: General: Normal range of motion. Cervical back: Normal range of motion and neck supple. Right lower leg: No edema. Left lower leg: No edema. Skin: General: Skin is warm and dry. Capillary Refill: Capillary refill takes less than 2 seconds. Findings: No rash. Neurological: General: No focal deficit present. Mental Status: She is alert and oriented to person, place, and time. Comments: Unsteady gait. ASSESSMENT AND PLAN: Assessment/Plan Diagnoses and all orders for this visit: Encounter for wellness examination - Lipid panel; Future - TSH W/REFLEX TO FT4; Future - Comprehensive metabolic panel; Future - Hemoglobin A1c; Future - CBC and differential; Future - Microalbumin / creatinine, urine ratio; Future - Vitamin D 25 hydroxy; Future -Discussed height, weight and BMI. Encouraged healthy diet and regular exercise. Discussed vaccinesand encouraged yearly flu shot. Annual eye and dental exam. Vaccines and cancer screens reviewed for completeness. Screen labs as needed. Assessed needs for tools in the home for independence. Livingwill and durable power of tax attorney reviewed. Updated patient problem list and reviewed all current medications with patient. Given time to ask questions. Primary hypertension (CMS/HCC) - Lipid panel; Future - Comprehensive metabolic panel; Future - hydroCHLOROthiazide (HYDRODiuril) 25 MG tablet; Take 1 tablet (25 mg) by mouth in the morning. -Discussed current management plan. Goal BP less then 130/80. Discussed heart healthy diet, increase fruits and vegetables, limit salt intake. Encouraged increase physical exercise, try to be as active as possible at least 150 mins per week. Importance of weight management with a goal BMI less then27 discussed. Discussed complications of uncontrolled blood pressure. Patient instructed to monitorBP's 1-2 times a week, keep a log, and bring to next visit. Barriers to care and medication compliance discussed. Patient voices understanding of meds. Acquired hypothyroidism (CMS/HCC) - TSH W/REFLEX TO FT4; Future -On synthroid Mixed hyperlipidemia (CMS/HCC) - Lipid panel; Future - Comprehensive metabolic panel; Future -On a statin Type 2 diabetes mellitus with hyperglycemia, without long-term current use of insulin ([facility]) - Lipid panel; Future - Comprehensive metabolic panel; Future - Hemoglobin A1c; Future - Microalbumin / creatinine, urine ratio; Future -Diabetic protocols reviewed. Discussed and updated current management plan. Addressed barriers to care, diet, exercise plan and blood sugar testing. Education provided for medications. Goal A1C <7 and BP <130/80 for suboptimally controlled diabetes. I have encouraged patient to check feet regularly and to see ophthomololgist annually. I have discussed the need for regular testing and follow up. We will recheck an A1C every 3 months and microalbumin yearly. Discussed complications which could include blindness, heart disease and kidney disease. Gastroesophageal reflux disease, unspecified whether esophagitis present - omeprazole (PriLOSEC) [address] capsule; Take 1 capsule (40 mg) by mouth in the morning. Take before meals. Continue medications as prescribed. Avoid triggers such as caffeine, ETOH, spicy foods. Avoid supine position 2-3 hours after eating. Elevate HOB. Age-related osteoporosis without current pathological fracture ([facility]) - Vitamin D 25 hydroxy; Future -Check vitamin d. Refuses dexa Anemia, unspecified type - CBC and differential; Future -check labs. Difficulty initiating walking -Patient has need of a walker/rollator in home to help her complete her ADL's i.e. walking to toilet, walking to kitchen, walking to bedroom and weakness in legs require to have a seat on walker to sit when needed to prevent further falls. Pt is able to safely use walker and her functional mobilityin home would be resolved by the use of a walker. Discussed patient's need for a front wheel walker. The patient has mobility limitations that significantly impair their ability to participate in activities of daily living without the risk of fall. The patient would benefit from this walker to reasonably complete activities of daily living and an acceptable timeframe given current limitations. Asthe patient is considered a fall risk, the utilization of a front-wheeled walker would mitigate therisk for height morbidity and mortality secondary to the possibility of fall. After further discussion at bedside the patient is able to safely use a walker in the benefit of walker use would improveher functional mobility to resolve deficit discussed above in her diagnosis. Osteopenia determined by x-ray -Check vitamin d H/O: hysterectomy Anxiety -declines medication Primary osteoarthritis of both hips -Would benefit from a rollator Persistent atrial fibrillation (HCC) ([facility]) -On eliquis and beta melissa Malignant neoplasm of left female breast, unspecified estrogen receptor status, unspecified site ofbreast (CMS/HCC) -Released from oncology a year ago, she has an open mammogram ordered. Encouraged to complete mammogram. Unsteady gait when walking Grief ([facility]/HCC) -Recently lost her spouse, she feel she is handling it ok. She does live with her younger sister, has her for support. Declines counseling. documented in this encounterLakeland [facility] [id number] NoteHNO ID: [id number] Author: Julio Lambert MD Service: ? Author Type: Physician Type: Progress Notes Filed: 05/25/2021 9:59 AM Note Text: NAME: Love Martinez CLINIC NO.: [id number] DATE OF SERVICE: May 21, 2021 Some elements in this clinic note that are critical to medical decision making have been carefully reviewed and included from a prior clinic note dated: May 22, 2020 Additional Clinicians involved in Love Martinez's care: Nancy Hannah, Chalo Kidd MD ([facility]) CC: breast cancer follow up. ASSESSMENT: 80 year old post-menopausal female diagnosed with a left sided [id number], stage I breast cancer (0.7 cm, T1b, overall grade 2 with associated DCIS, ER 100%, VA 100%, HER-2 negative) treated with lumpectomy and sentinel lymph node biopsy, adjuvant radiation therapy and currently on adjuvant endocrine therapy since May 2015. No adjuvant chemotherapy recommended given low Oncotype RS of 9. She was initially on Arimidex that was changed to tamoxifen in March 2018. She has completed 5 years of endocrine treatment. She also had osteopenia secondary to AI use that developed despite use of Ca and Vit D. Trials of zoledronic acid were noted with poor tolerance (joint aches and eye inflammation) and she has remained on calcium and vitamin D (1000mg and 800IU) daily. She is NELL and would like to simplify her medical care. She can see me as needed in the future. PLAN: 1. Obtain lab results from [facility] - needs CBC, CMP 2. Will defer to her PCP for Dexa and next mammogram 3. RTC PRN HPI: Updated Visit, May 21, 2021: Here with sister Jacqueline. Has not had labs recently and is due for bone density. Mammography is up-to-date in 04/2021 and was benign. She prefers to have her exam done by her new PCP and will do labs there too. Updated Visit, May 22, 2020 She comes in for a follow-up visit. Mammogram done on 04/13/20 was without any evidence of recurrence. She continues on tamoxifen without any tolerability issues. She has completed 5 years of endocrine treatment. Case History Past medical history of gastroesophageal reflux disease, hyperlipidemia, hypertension, hypothyroidism, transient intermittent atrial fibrillation, arthritis, breast cancer. History of hysterectomy. History of a right hip replacement. Routine screening mammogram on 01/12/15 abnormal showed a new left breast mass, ultimately referred to radiology for biopsy on 01/19/15 which was consistent with invasive breast carcinoma. 0.7 cm, T1b, overall grade 2 with associated DCIS. ER 100%, VA 100%, HER-2 negative score 0. Had been spell allowing the spot for about a year and a mammogram. On 02/17/15 she had a left partial mastectomy of the left upper outer quadrant and sentinel lymph node biopsy. Pathology report revealed only residual DCIS with high grade., negative margins(1.0 mm from the anterior margin), 3 sentinel lymph nodes negative for involvement . Postop course with a mild cellulitis. Treated with Keflex, began treatment on 03/02/15. Completed 6100cGy to the left chest wall April 02 through May 20, 2015. Her Oncotype DX score came back low risk with a score of 9. DEXA scan with normal bone density in March 2015. Began Arimidex in May 2015 and tolerating well. Changed to tamoxifen in March 2018 given arthralgias and fatigue from AI. RADIOLOGY/OTHER STUDIES: 04/05/2021 Mammogram Benign 04/13/20 Mammogram Negative for recurrence REVIEW OF SYSTEMS Per HPI and otherwise negative by full review of organ systems. ECOG PERFORMANCE STATUS: 0 PHYSICAL EXAMINATION: Vitals: BP 155/99 Pulse 78 Temp 97.5 Resp 16 Ht 5' 7.244 (1.71m) Wt 203 lb (92.1kg) SpO2 99% BMI 31.56 kg/(m2). Body surface area is 2.09 meters squared. Exam limited to gross visualization where appropriate due to COVID-19. Gen.: This is an age-appropriate patient in no acute distress. Head: Appears atraumatic with no visible lesions. Eyes: Pupils equally round and reactive to light, extraocular muscles are intact. Neck: Supple. Mouth: Mucous membranes appeared to be moist. Respiratory: Appears to be respiring comfortably. Neurologic: Nonfocal to gross visualization. Alert and oriented ?3. Psychiatric: No evidence of inappropriate anxiety or depression. Skin: Visible areas of skin without rash, lesions, wounds or petechiae. ALLERGIES: ALLERGIES Allergen Reactions - Reclast [Zoledronic* Other: See Comments severe headaches MEDICATIONS: nystatin (NYAMYC) powder APPLY 1 APPLICATION TO AFFECTED AREA FOUR TIMES A DAY metFORMIN ER (GLUCOPHAGE XR) 500 mg 24 hr tablet apixaban (ELIQUIS) 5 mg tab(s) Take by mouth twice daily. hydroCHLOROthiazide (HYDRODIURIL, ESIDRIX) 25 mg tablet Take 25 mg by mouth once daily. latanoprost (XALATAN) 0.005 % ophthalmic solution atenolol (TENORMIN) 50 mg tablet Take 50 mg by mouth once daily. levothyroxine (SYNTHROID) 50 mcg tablet Take 50 (more content not included)... [facility] Diagnosis Encounter for wellness examination- Primary Primary hypertension (CMS/HCC) Unspecified essential hypertension Acquired hypothyroidism (CMS/HCC) Unspecified hypothyroidism Mixed hyperlipidemia (CMS/HCC) Mixed hyperlipidemia Type 2 diabetes mellitus with hyperglycemia, without long-term current use of insulin (CMS/HCC) Gastroesophageal reflux disease, unspecified whether esophagitis present Age-related osteoporosis without current pathological fracture (CMS/HCC) Anemia, unspecified type Difficulty initiating walking Osteopenia determined by x-ray H/O: hysterectomy Acquired absence of both cervix and uterus Anxiety Anxiety state, unspecified Primary osteoarthritis of both hips Persistent atrial fibrillation (HCC) (CMS/HCC) Atrial fibrillation Malignant neoplasm of left female breast, unspecified estrogen receptor status, unspecified site of breast (CMS/HCC) Unsteady gait when walking Grief (CMS/HCC) Adjustment disorder with depressed mood Cervical cancer screening declined Colon cancer screening declined Osteoporosis screening declined documented [facility] encounter [facility] Diagnosis Onset Date Resolution Status DM type 2 (diabetes mellitus, type 2) acute Elevated troponin acute Essential hypertension acute Falls acute GERD (gastroesophageal reflux disease) acute Leukocytosis acute Paraparesis of both lower limbs acute Persistent atrial fibrillation acute [facility] Work Phone: Evaluation note* Diagnosis Dermatophytosis of nail- Primary Dystrophic nail Other specified disease of nail Pain around toenail, right foot Pain around toenail, left foot documented in this encounter [facility] Summary Purpose Family History No Family History Records FoundNo Family History Records FoundNo Family History Records FoundNo Family History Records FoundNo Family History Records Found Advance Directives No Advanced Directives Records Found Advance Directive Response Recorded Date/ Time Advance Directives No May 8:33am Chief Complaint and Reason for Visit Chief Complaint Nonstemi Nonstemi Reason for Visit DM type 2 (diabetes mellitus, type 2) Elevated troponin Essential hypertension Falls GERD (gastroesophageal reflux disease) Leukocytosis Paraparesis of both lower limbs Persistent atrial fibrillation Additional Source Comments INFORMATION SOURCE (unrecogn ized section and content) DATE CREATED AUTHOR 04/24/2019 [facility] DATE CREATED AUTHOR AUTHOR'S ORGANIZ ATION 10/24/[address] 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 Care Teams (unrecognized sec tion and content) Land Re[employer] Specialist Relationship Specialty Start Date End Date Jose Galindo PCP - [employer] 09/04/22 Iliana Nava MD [address] [place] [address] PCP - General Family Medicine 2/1/24 Team Status: Active Member Role Status Dates Nolan Isabel OFFICE MACHINE INSPECTOR-C Primary Care Provider Active Team Status: Inactive Member Role Status Dates Nolan Isabel NP-C Primary Care Provider Active Start: February 21, 2024 End: March 02, 2024 Cash Abreu MD Admit Provider Active S tart: February 21, 2024 End: March 02, 2024 Guero Cantu MD Attending Provider Active S tart: February 21, 2024 End: March 02, 2024 Team Status: Active Member Role Status Dates Nolan Isabel OFFICE MACHINE INSPECTOR-C Primary Care Provider Active Start: February 21, 2024 Cash Abreu MD Admit Provider Active S tart: February 21, 2024 Chen Calderon RN Other Provider Active Star t: February 21, 2024 Brayan Martin MD Other Provider Active Start: J 2023 Kyle Arenas MD Other Provider Active Start: February 20 Ana Lilia May MD Attending Provider, Other Provider Active Start: February 21, 2024 Navi Torres MD Other Provider Active Start: February 21, 2024 Land Reclamation Specialist Relationship Specialty Start Date End Date Jose Galindo PCP - [employer] 09/04/21 Iliana Nava MD [address] [place] [address] PCP - General [facility] Medicine 10/05/23 Land Reclamation Specialist Relationship Specialty Start Date End Date Jose Galindo PCP - [employer] 09/04/21 Iliana Nava MD [address] [place] [address] [facility] 10/05/23 FOR RECORDS PERTAINING TO PATIENTS WHO ARE OR HAVE BEEN ENROLLED IN A CHEMICAL DEPENDENCY/SUBSTANCEABUSE PROGRAM, SOME INFORMATION MAY BE OMITTED. This clinical summary was aggregated from multiple sources. Caution should be exercised in using it in the provision of clinical care. This summary normalizes information from multiple sources, and as a consequence, information in this document may materially change the coding, format and clinical context of patient data. In addition, data may be omitted in some cases. CLINICAL DECISIONS SHOULD BE BASED ON THE PRIMARY CLINICAL RECORDS. [employer] [facility]. provides no warranty or guarantee of the accuracy or completeness of information in this document.
[2024-06-30 13:28] VITALS: BP 176/85; PULSE 78; TEMP 36.7; O2SAT 95; BMI 29.5
--- NOTE | 2024-06-30 14:24 | CT_ITS ---
The [address] [address] Patient Name: LOVE XIAO MRN: [id number] date: 1940 Sex: F Assigned Patient Location: ER Current Patient Location: ER Accession/Order Number: [id number] Exam Date: 06/30/2024 15:40 Report Date: 06/30/2024 16:46 At the request of: JANI LOVE Procedure: CT abdomen pelvis wo con CT ABDOMEN/PELVIS WITHOUT IV CONTRAST. INDICATION: llq pain COMPARISON: 03/15/2015. TECHNIQUE: Contiguous axial images were obtained from the lung bases to the pelvic floor without intravenous or oral contrast. Coronal and sagittal reformations are provided. FINDINGS: LOWER LUNGS: Clear. LIVER/BILIARY TREE: Interval increase in size of the right hepatic lobe cyst which currently measures 5.7 cm, as compared to 3.5 cm. No intrahepatic ductal dilatation. GALLBLADDER: No significant gallbladder wall thickening. No radiopaque stone. CBD: Normal CBD. SPLEEN: Normal in size. PANCREAS: No appreciable peripancreatic fluid. No pancreatic ductal dilatation. No discrete lesion. ADRENALS: Normal. KIDNEYS: There is mild left hydronephrosis likely secondary to an obstructing 3 mm left UVJ stone. Evaluation of the UVJ is limited due to streak artifact. Left nephrolithiasis.. STOMACH AND BOWEL: Moderate size hiatal hernia. No dilated bowel loops. No bowel wall thickening. APPENDIX: Not well-visualized. PERITONEAL CAVITY: There is left perinephric stranding and small amount of free fluid.. ABDOMINAL WALL: No subcutaneous stranding. No subcutaneous fluid collection. LYMPH NODES: No mesenteric or retroperitoneal lymphadenopathy by CT criteria. ABDOMINAL AORTA: No aneurysm. PELVIS: Limited evaluation of the lower pelvis due to streak artifact from the right hip arthroplasty. MUSCULOSKELETAL: No acute osseous abnormality. There is grade 1 anterolisthesis at L5-S1 without spondylolysis.6 CT/CT abdomen pelvis wo con IMPRESSION: Obstructing 3 mm left UVJ stone resulting in mild hydronephrosis. Evaluation of the UVJ is somewhat limited due to streak artifact. Electronically authenticated by: RADHA FORBES Date: 06/30/2024 16:46
[2024-06-30 14:55] LABS: Bilirubin Urine NEGATIVE (NEGATIVE); Blood Urine LARGE (NEGATIVE); Clarity Urine SL CLOUDY (CLEAR); Color Urine LT. YELLOW (YELLOW); Glucose Urine UA 100 mg/dL (NEGATIVE); Ketones Urine NEGATIVE (NEGATIVE); Leukocyte Esterase Urine NEGATIVE (NEGATIVE); Nitrite Urine NEGATIVE (NEGATIVE); Protein Urine NEGATIVE (NEG/TRACE)
[2024-06-30 14:58] LABS: Urine Microscopic Indicated YES
[2024-06-30 15:06] LABS: RBC Urine 20-50 #/HPF (0-2); WBC Urine 0-2 #/HPF (NONE SEEN)
[2024-06-30 15:07] LABS: Bacteria Urine MODERATE #/HPF (NONE SEEN); Cast Seen? NONE SEEN #/LPF (NONE SEEN); Crystals Seen? None Seen #/HPF (None Seen); Mucus Urine NONE SEEN (NONE SEEN); Squamous Epithelial Cell Urine FEW #/LPF (NONE/RARE); Urine Culture Indicated YES
[2024-06-30 16:32] VITALS: BP 151/77
[2024-06-30] MEDS: KETOROLAC TROMETHAMINE 30 MG/ML VIAL 15 MG IVP (16:41)
[2024-06-30 16:57] LABS: Basophils Percent Auto 0.2 % (0.2-2.0); Eosinophils Percent Auto 0.2 % (0.9-7.0); Hematocrit 40.9 % (36.0-48.0); Immature Granulocytes Abs Auto 0.06 10^3/uL (0.00-0.03); Immature Granulocytes Pct Auto 0.5 % (0.0-0.5); Lymphocytes Absolute Auto 0.9 10^3/uL (1.2-3.8); Mean Corpuscular HGB Conc 31.8 g/dL (29.9-35.2); Mean Corpuscular Hemoglobin 28.2 pg (26.7-34.0); Mean Corpuscular Volume 88.7 fL (81.0-99.0); Mean Platelet Volume 11.3 fL (9.5-13.5); Monocytes Absolute Auto 0.8 10^3/uL (0.3-0.8); Monocytes Percent Auto 6.3 % (1.7-12.0); Neutrophils Absolute Auto 11.2 10^3/uL (1.4-6.5); Neutrophils Percent Auto 85.8 % (43.0-75.0); Platelet Count 236 10^3/uL (150-450); Red Blood Count 4.61 10^6/uL (4.20-5.40); Red Cell Distribution Width 14.8 % (11.0-15.0); White Blood Count 13.1 10^3/uL (4.0-11.0)
[2024-06-30 17:52] LABS: Alanine Aminotransferase 21 U/L (14-59); Albumin Globulin Ratio 0.9; Albumin Level 3.7 g/dL (3.4-5.0); Alkaline Phosphatase 97 U/L (46-116); Aspartate Amino Transferase 28 U/L (15-37); BUN Creatinine Ratio 32.6; Bilirubin Total 0.9 mg/dL (0.2-1.0); Calcium 9.5 mg/dL (8.5-10.1); Carbon Dioxide 27.8 mmol/L (21.0-32.0); Chloride 99 mmol/L (98-107); Estimated GFR (African America >60 (>=60 mL/min/1.73m^2); Estimated GFR (Non-African Ame >60 (>=60 mL/min/1.73m^2); Globulin 4.3 g/dL; Glucose 168 mg/dL (74-106); Potassium 3.8 mmol/L (3.5-5.1); Sodium 140 mmol/L (136-145)
--- NOTE | 2024-06-30 18:27 | ED_ITS ---
HPI HPI - General Adult General Chief complaint: Urogenital-Female Stated complaint: ABDOMINAL PAIN Time Seen by Provider: 06/30/24 14:24 Source: patient and family Mode of arrival: Wheelchair Limitations: no limitations History of Present Illness HPI narrative: The patient is coming to the ER with a left flank pain radiating to the left lower quadrant abdomen, since this morning The pain is crampy associated with no fever no chills no nausea no vomiting although she did had no appetite today because of the pain Related Data Home Medications ?Medication ?Instructions ?Recorded ?Confirmed apixaban 5 mg tablet (Eliquis) 5 mg PO Q12H 02/20/24 02/20/24 atenolol 50 mg tablet 50 mg PO Q24H 02/20/24 02/20/24 hydrochlorothiazide 25 mg tablet 25 mg PO DAILY 02/20/24 02/20/24 levothyroxine 50 mcg tablet 50 mcg PO DAILY 02/20/24 02/20/24 (Synthroid) metformin 500 mg tablet,extended 500 mg PO DAILY 02/20/24 02/20/24 release 24 hr omeprazole 40 mg capsule,delayed 40 mg PO DAILY 02/20/24 02/20/24 release pravastatin 40 mg tablet 40 mg PO DAILY 02/20/24 02/20/24 timolol maleate 0.5 % eye drops 1 drp ophthalmic (eye) BEDTIME 02/20/24 02/20/24 Previous Rx's ?Medication ?Instructions ?Recorded cephalexin 500 mg capsule 500 mg PO Q8H 7 days #21 caps 06/30/24 tamsulosin 0.4 mg capsule (Flomax) 0.4 mg PO DAILY #10 caps 06/30/24 tramadol 50 mg tablet 50 mg PO Q8H PRN pain #6 tabs 06/30/24 Allergies Allergy/AdvReac Type Severity Reaction Status Date / Time No Known Drug Allergies Allergy Verified 02/20/24 13:17 Opioid HPI Opioid Management Most Recent Opioid Data: No Data to Display Review of Systems ROS Status of ROS 10 or more systems reviewed and unremark able except as noted in history and below Exam Narrative Exam Narrative: Nurses notes and vital signs reviewed and patient is not hypoxic. General: Well-appearing and in no apparent distress. Skin: Warm, dry, no pallor noted. No rash. Head: Normocephalic, atraumatic. Neck: Supple, non-tender. Eye: Pupils are equal, round and EOMI. No scleral icterus. Ears, Nose, Mouth, and Throat: TM are clear, no nasal mucosal hypertrophy. Oral mucosa is moist, no posterior oropharynx erythema, uvula is mid-line Cardiovascular: Regular Rate and Rhythm without murmur, gallop or rub. Respiratory: No accessory muscle use or respiratory distress. Lungs are clear to auscultation, no wheezing, rales or rhonchi Chest Wall: no tenderness Back: No midline thoracic or lumbar vertebral tenderness. Left CVA tenderness Musculoskeletal: normal ROM, no calf or popliteal tenderness, no lower extremity edema/swelling GI: Abdomen is soft, non-distended. Normal bowel sounds. No masses appreciated. No tenderness to palpation. No rebound, guarding, or rigidity noted. Neurological: A&O x4. No cranial nerve dysfunction observed. No truncal ataxia. Moves all extremities. Sensation intact. Psychiatric: Cooperative and interactive. Normal mood and affect. Constitutional Vital Signs, click to edit/add: Last Vital Signs Temp 98.0 F 06/30/24 13:28 Pulse 78 06/30/24 13:28 Resp 18 06/30/24 13:28 BP 151/77 H 06/30/24 16:32 Pulse Ox 95 06/30/24 13:28 O2 Del Method Room Air 06/30/24 13:28 Course Vital Signs Vital signs: Vital Signs Temperature 98.0 F 06/30/24 13:28 Pulse Rate 78 06/30/24 13:28 Respiratory Rate 18 06/30/24 13:28 Blood Pressure 176/85 H 06/30/24 13:28 Pulse Oximetry 95 06/30/24 13:28 Oxygen Delivery Method Room Air 06/30/24 13:28 Temperature 98.0 F 06/30/24 13:28 Pulse Rate 78 06/30/24 13:28 Respiratory Rate 18 06/30/24 13:28 Blood Pressure 151/77 H 06/30/24 16:32 Pulse Oximetry 95 06/30/24 13:28 Oxygen Delivery Method Room Air 06/30/24 13:28 Medical Decision Making MDM Narrative Medical decision making narrative: CBC shows mild leukocytosis urinalysis showed no UTI but there is some bacteriuria Chemistry was within normal and the patient pain got better after being treated in the ER with Toradol The patient daughter at the bedside instructed about the importance of come back in case of any fever or any increasing pain Patient case was discussed with the urologist on-call and he agreed with above-mentioned plan Patient was referred to follow-up with urology within 2 to 3 days The patient is to follow up with primary care physician in next 2-3 days or to return to the emergency department should any of the signs or symptoms worsen or new symptoms develop. The patient agrees with the following Diagnosis and Treatment plan and the patient will be discharged home. Lab Data Labs: Lab Results 06/30/24 06/30/24 Range/Units 13:40 16:40 WBC 13.1 H (4.0-11.0) 10^3/uL RBC 4.61 (4.20-5.40) 10^6/uL Hgb 13.0 (12.0-16.0) g/dL Hct 40.9 (36.0-48.0) % MCV 88.7 (81.0-99.0) fL MCH 28.2 (26.7-34.0) pg MCHC 31.8 (29.9-35.2) g/dL RDW 14.8 (11.0-15.0) % Plt Count 236 (150-450) 10^3/uL MPV 11.3 (9.5-13.5) fL Neut % (Auto) 85.8 H (43.0-75.0) % Lymph % (Auto) 7.0 L (20.5-60.0) % Kings % (Auto) 6.3 (1.7-12.0) % Eos % (Auto) 0.2 L (0.9-7.0) % Baso % (Auto) 0.2 (0.2-2.0) % Neut # (Auto) 11.2 H (1.4-6.5) 10^3/uL Lymph # (Auto) 0.9 L (1.2-3.8) 10^3/uL Kings # (Auto) 0.8 (0.3-0.8) 10^3/uL Eos # (Auto) 0.0 (0.0-0.7) 10^3/uL Baso # (Auto) 0.0 (0.0-0.1) 10^3/uL Abs Immat Gran (auto) 0.06 H (0.00-0.03) 10^3/uL Imm/Tot Granulo (auto) 0.5 (0.0-0.5) % Sodium 140 (136-145) mmol/L Potassium 3.8 (3.5-5.1) mmol/L Chloride 99 (98-107) mmol/L Carbon Dioxide 27.8 (21.0-32.0) mmol/L Anion Gap 17.0 BUN 28.0 H (7.0-18.0) mg/dL Creatinine 0.86 (0.55-1.02) mg/dL Est GFR ( Amer) >60 (>=60 mL/min/1.73m^2) Est GFR (Non-Af Amer) >60 (>=60 mL/min/1.73m^2) BUN/Creatinine Ratio 32.6 Glucose 168 H (74-106) mg/dL Calcium 9.5 (8.5-10.1) mg/dL Total Bilirubin 0.9 (0.2-1.0) mg/dL AST 28 (15-37) U/L ALT 21 (14-59) U/L Alkaline Phosphatase 97 (46-116) U/L Total Protein 8.0 (6.4-8.2) g/dL Albumin 3.7 (3.4-5.0) g/dL Globulin 4.3 g/dL Albumin/Globulin Ratio 0.9 Urine Color Lt. yellow (YELLOW) Urine Clarity Sl cloudy (CLEAR) Urine pH 7.0 (5.0-9.0) Ur Specific Turner 1.020 (1.005-1.025) Urine Protein Negative (NEG/TRACE) mg/dL Urine Glucose (UA) 100 A (NEGATIVE) mg/dL Urine Ketones Negative (NEGATIVE) mg/dL Urine Occult Blood Large A (NEGATIVE) Urine Nitrite Negative (NEGATIVE) Urine Bilirubin Negative (NEGATIVE) Urine Urobilinogen 1.0 (0.2-1.0) EU/dL Ur Leukocyte Esterase Negative (NEGATIVE) Urine RBC 20-50 A (0-2) #/HPF Urine WBC 0-2 A (NONE SEEN) #/HPF Ur Squamous Epith Cells Few A (NONE/RARE) #/LPF Urine Crystals None seen (None Seen) #/HPF Urine Bacteria Moderate A (NONE SEEN) #/HPF Urine Casts None seen (NONE SEEN) #/LPF Urine Mucus None seen (NONE SEEN) Ur Culture Indicated? Yes Discharge Plan Discharge Chief Complaint: Urogenital-Female Clinical Impression: Kidney calculi, Hydronephrosis Patient Disposition: Home, Self-Care Time of Disposition Decision: 18:22 Condition: Good Prescriptions / Home Meds: New tamsulosin [Flomax] 0.4 mg capsule 0.4 mg PO DAILY Qty: 10 0RF cephalexin 500 mg capsule 500 mg PO Q8H 7 Days Qty: 21 0RF tramadol 50 mg tablet 50 mg PO Q8H PRN (Reason: pain) Qty: 6 0RF No Action pravastatin 40 mg tablet 40 mg PO DAILY omeprazole 40 mg capsule,delayed release(DR/EC) 40 mg PO DAILY levothyroxine [Synthroid] 50 mcg tablet 50 mcg PO DAILY hydrochlorothiazide 25 mg tablet 25 mg PO DAILY metformin 500 mg tablet extended release 24 hr 500 mg PO DAILY atenolol 50 mg tablet 50 mg PO Q24H Eliquis 5 mg tablet 5 mg PO Q12H timolol maleate 0.5 % drops 1 drp OPHTHALMIC (EYE) BEDTIME Print Language: Turkmen Instructions: Kidney Stones (ED), How to Strain Your Urine (ED), Hydronephrosis (ED) Referrals: Dr Paulie zabala [Other] - As soon as possible Anita Isabel, OCCUPATIONAL HEALTH AND SAFETY MANAGER [Primary Care Provider] - 1 week
[2024-06-30 18:41] VITALS: PULSE 84; O2SAT 99
== END 2024-06-30 18:41 | disposition home or self-care (01) ==
PROVIDERS: Emergency Provider Emergency Medicine; PCP Nurse Practitioner Family
DX: N13.2 Hydronephrosis with renal and ureteral calculous obstruction (principal)
CPT/HCPCS: 36415; 74176; 80053; 81001; 85025; 87086; 96374; 99285; J1885

== ENCOUNTER 2024-10-28 02:08 | Emergency (ER) | payer MEDICARE, SELFPAY ==
[2024-10-28 02:11] VITALS: BP 166/95; PULSE 90; TEMP 36.9; O2SAT 95; BMI 25.8
--- OUTSIDE RECORDS SUMMARY | 2024-10-28 02:16 | XMS_ITS | CCD ---
Author Organization [facility] Care Team Providers Care Inspector Wire Rope Name Role Phone EMILY TORI Admitting Unavailable TORI DIAZ Attending Unavailable JOSE GALINDO Primary Care Unavailable TORI DIAZ Consulting Unavailable Jose Galindo Unavailable Unavailable Iliana Nava MD Primary Care Provider MARCIANO Isabel Primary Care Provider [phone] MD Cash Abreu Admit Provider [phone] MD Guero Cantu Attending Provider [phone] Guero Cantu Attending Unavailable Chen Calderon Consulting Unavailable Anita Isabel Primary Care Unavailable Cash Abreu Admitting Unavailable Brayan Martin Consulting Unavailable Kyle Arenas Consulting Ana Lilia Mckeon Consulting Unavailable Jose Galindo Unavailable Unavailable Unallocated , Susi Provider Primary Care Provi saima Nancy Hannah DO Unavailable TISHA CHO Attending Unavailable ANITA IASBEL Attending Unavailable TISHA CHO Attending Unavailable Allergies Allergy Classification Reported Allergen(s) Allergy Type Date of Onset Reaction(s) Facility (8 sources) Sucralfate Drug Allergy [address] [facility] Healthcare (8 sources) zoledronic acid Drug Allergy 4 [facility] Medications Current Medications Medication Drug Class(es) Dates Sig (Normalized) Sig (Original) apixaban 5 mg oral tablet (9 sources) Factor Xa Inhibitor Start: 12-08-2023 take [...] 0 Active atenolol 50 mg oral tablet (9 sources) beta-Adrenergic Eliceo Start: 06-29-2023 End: 06-28-2024 take 1 tablet by mouth in the morning atenolol (Tenormin) 50 MG tablet Indications: Primary hypertension (CMS/HCC) Take 1 tablet (50 mg) by mouth in the morning. 90 tablet 3 06/29/2023 Active cholecalciferol 0.05 mg oral capsule (9 sources) Vitamin D Start: 02-21-2024 take 50 ug by mouth once daily Cholecalciferol (Vitamin D3) Active 50 MCG PO Daily February 21, 2024 12:00am take 1 capsule by mouth in the m orning cholecalciferol (Vitamin D-3) 50 MCG (2000 UT) capsule Take 2,000 Units by mouth in the morning. Active doxycycline hyclate 100 mg oral tablet (1 source) Tetracycline-class Drug Start: 02-26-2024 take 100 mg by mouth every twelve hours Doxycycline Hyclate Active 100 MG PO Q12H 20 February 26, 2024 12:00am hydroCHLOROthiazide 25 mg oral tablet (11 sources) Thiazide Diuretic Start: 03-15-2023 End: 10-11-2023 take 1 tablet by mouth in the morning hydroCHLOROthiazide (HYDRODiuril) 25 MG tablet Indications: Primary hypertension (CMS/HCC) Take 1 tablet (25 mg) by mouth in the morning. 90 tablet 1 10/11/2023 Active latanoprost 0.05 mg/ml ophthalmic solution (9 sources) Prostaglandin Analog Start: 02-21-2024 take 1 drop(s) into the eye(s) once daily Latanoprost Active 1 DROPS EYE-BOTH Daily February 21, 2024 12:00am Start: 02-02-2023 take 1 drop(s) into the eye(s) in the morning latanoprost (Xalatan) 0.005 % ophthalmic solution Administer 1 drop into affected eye(s) in the morning. 02/02/2023 Active levothyroxine sodium 0.05 mg oral tablet (9 sources) l-Thyroxine Start: 05-01-2023 End: 04-30-2024 take 1 tablet by mouth before mealtime levothyroxine (Synthroid, Levoxyl) 50 MCG tablet Indications: Acquired hypothyroidism (CMS/HCC) Take 1 tablet (50 mcg) by mouth in the morning. Take before meals. 90 tablet 3 05/01/2023 Active 24 hr metFORMIN hydrochloride 500 mg extended release oral tablet (9 sources) Biguanide Start: 02-21-2024 take 500 mg [...] omeprazole 40 mg delayed release oral capsule (11 sources) Proton Pump Inhibitor Start: 03-13-2023 End: 10-11-2023 take 1 capsule by mouth before mealtime omeprazole (PriLOSEC) [address] capsule Indications: Gastroesophageal reflux disease, unspecified whether esophagitis present Take 1 capsule (40 mg) by mouth in the morning. Take before meals. 90 capsule 1 10/11/2023 Active pravastatin sodium 40 mg oral tablet (11 sources) HMG-CoA Reductase Inhibitor Start: 04-14-2023 End: 04-13-2024 take 1 tablet by mouth in the morning pravastatin (Pravachol) 40 MG tablet Indications: Mixed hyperlipidemia (CMS/HCC) Take 1 tablet (40 mg) by mouth in the morning. 90 tablet 3 04/14/2023 Active Timolol (9 sources) beta-Adrenergic Eliceo Start: 02-21-2024 take 1 drop(s) into the [...] Problem Date Documented Date Episodic/Chronic Adjustment disorders (10 sources) Grief finding; Translations: [Adjustment disorder with depressed mood] Onset: 10-11-2023 10-13-2023 Chronic Anxiety disorders (10 sources) Anxiety; Translations: [Anxiety disorder, unspecified] Onset: 10-11-2023 10-13-2023 Chronic Cancer of breast (10 sources) Malignant neoplasm of female breast; Translations: [Malignant neoplasm of unspecified site of left female breast] Onset: 05-07-2015 10-13-2023 Chronic Cardiac dysrhythmias (12 sources) Persistent atrial fibrillation; Translations: [Other persistent atrial fibrillation] Onset: 10-11-2023 10-13-2023 Chronic Deficiency and other anemia (2 sources) Anemia; Translations: [Anemia, unspecified] 10-11-2023 Episodic Diabetes mellitus with complications (11 sources) Type 2 diabetes mellitus; Translations: [Type [...] 02-21-2024 02-21-2024 Chronic Disorders of lipid metabolism (10 sources) Mixed hyperlipidemia; Translations: [Mixed hyperlipidemia] Onset: 10-11-2023 10-11-2023 Chronic E Codes: Fall (3 sources) Fall; Translations: [Unspecified fall, initial encounter] Onset: 02-21-2024 02-21-2024 Episodic Essential hypertension (14 sources) Essential (primary) hypertension; Translations: [Essential hypertension] Onset: 04-23-2019 10-11-2023 Chronic External cause codes: Natural/environment (1 source) Bitten or stung by nonvenomous insect and other nonvenomous arthropods, initial encounter; Translations: [BITTEN NONVENOM INSCT OTH ARTH INIT] Onset: 04-23-2019 Glaucoma (8 sources) Primary open angle glaucoma; Translations: [Primary open-angle glaucoma, unspecified eye, mild stage] Onset: 10-11-2023 10-11-2023 Chronic Mycoses (3 sources) Onychomycosis due to dermatophyte ; Translations: [Tinea unguium] 06-24-2024 Episodic Osteoarthritis (10 sources) Primary coxarthrosis, bilateral; 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] Onset: 10-11-2023 10-13-2023 Chronic Osteoporosis (2 sources) Senile osteoporosis; Translations: [Age-related osteoporosis without current pathological fracture] 10-11-2023 Chronic Other connective tissue disease (8 sources) History of repair of hip joint; Translations: [Presence of right artificial hip joint] Onset: 10-11-2023 10-11-2023 Chronic Other connective tissue disease (6 sources) Pain in toe; Translations: [Pain in right toe(s)] 06-24-2024 Episodic Other nervous system disorders (10 sources) Difficulty initiating walking; Translations: [Difficulty in walking, not elsewhere classified] Onset: 10-11-2023 10-11-2023 Chronic Other nervous system disorders (2 sources) Unsteady when walking; Translations: [Unsteadiness on feet] 10-13-2023 Episodic Other screening for suspected conditions (not mental disorders or infectious disease) (3 sources) Raised cardiac enzyme or marker; Translations: [Other specified abnormal findings of blood chemistry] Onset: 02-21-2024 02-21-2024 Episodic Other skin disorders (3 sources) Dystrophia unguium; Translations: [Nail dystrophy] 06-24-2024 [...] ANKLE INIT] Onset: 04-21-2019 Episodic Thyroid disorders (10 sources) Acquired hypothyroidism; Translations: [Hypothyroidism, unspecified] Onset: 10-11-2023 10-11-2023 Chronic Unclassified (1 source) Other persistent atrial fibrillation; Translations: [Other persistent atrial fibrillation] Onset: 02-21-2024 Past or Other Problems Problem Classification Problem Date Documented Date Episodic/Chronic E Codes: Adverse effects of medical drugs (8 sources) Adverse reaction caused by bisphosphonate; Translations: [Adverse effect of other primarily systemic and hematological agents, initial encounter] Onset: 10-11-2023 10-11-2023 Episodic Esophageal disorders (13 sources) Gastroesophageal reflux disease; Translations: [Gastro-esophageal reflux disease without esophagitis] Onset: 10-11-2023 Resolved: 10-11-2023 10-11-2023 Chronic Mood disorders (8 sources) Mood disorders Onset: 10-11-2023 10-11-2023 Other bone disease and musculoskeletal deformities (10 sources) Osteopenia; Translations: [Other specified disorders of bone density and structure, unspecified site] Onset: 10-11-2023 10-13-2023 Episodic Other nutritional; endocrine; and metabolic disorders (8 sources) Body mass index 25-29 - overweight; Translations: [Overweight] Onset: 10-11-2023 10-11-2023 Episodic Residual codes; unclassified (8 sources) History of left mastectomy; Translations: [Acquired absence of left breast and nipple] Onset: 10-11-2023 10-11-2023 Episodic Results Test Name Value Interpretation Reference Range Facility Capillary blood glucose gurdeep urement by glucometer (mass/volume)Ordered By: Guero Cantu on 03-02-2024 Glucose [Mass/Vol] 165 mg/dL Normal [facility] Comment on above: Random Glucose Refer ence Range is dependent on time and content of last meal. Glucose of more than 200 mg/dL in a nonstressed, ambulatory subject supports the diagnosis of Diabetes Mellitus. Result Comment: [facility] Glucose Reference Range is dependent on time and content of last meal. Glucose of more than 200 mg/dL in a nonstressed, ambulatory subject supports the diagnosis of Diabetes Mellitus. PERFORMED BY: [place] [address] PATHOLOGIST SALES REPRESENTATIVE TRAINEE KAYLIE CHICAS M.D. Performed By: #### P HOS, MG, BNP #### [facility] [address] [place] [address] Glucose Poct Glucometerson 0 03-02-2024 Glucose [Mass/Vol] 176 mg/dL Normal [facility] Comment on above: Result Comment: [facility] Glucose Reference Range is dependent on time and content of last meal. Glucose of more than 200 mg/dL in a nonstressed, ambulatory subject supports the diagnosis of Diabetes Mellitus. PERFORMED BY: [place] [address] PATHOLOGIST SALES REPRESENTATIVE TRAINEE KAYLIE CHICAS M.D. Performed By: #### P HOS, MG, BNP #### [facility] [address] [place] [address] [place] Glucose [Mass/Vol] 156 mg/dL Normal [facility] Comment on above: Result Comment: [facility] Glucose Reference Range is dependent on time and content of last meal. Glucose of more than 200 mg/dL in a nonstressed, ambulatory subject supports the diagnosis of Diabetes Mellitus. PERFORMED BY: [place] [address] PATHOLOGIST SALES REPRESENTATIVE TRAINEE KAYLIE CHICAS M.D. Performed By: #### G LULS #### Point of Care testing , Glucose Poct Glucometerson 0 03-01-2024 Glucose [Mass/Vol] 204 mg/dL Normal [facility] Comment on above: Result Comment: [facility] Glucose Reference Range is dependent on time and content of last meal. Glucose of more than 200 mg/dL in a nonstressed, ambulatory subject supports the diagnosis of Diabetes Mellitus. PERFORMED BY: [address] [place] [address] PATHOLOGIST SALES REPRESENTATIVE TRAINEE KAYLIE CHICAS M.D. Performed By: #### G LULS #### Point of Care testing , Commemt1 Glu2: Cleaned Meter Normal [facility] Comment on above: Result Comment: PERF ORMED BY: [place] [address] PATHOLOGIST SALES REPRESENTATIVE TRAINEE KAYLIE CHICAS M.D. Performed By: #### P HOS, MG, BNP #### [address] Glucose [Mass/Vol] 187 mg/dL Normal [facility] Comment on above: Result Comment: [facility] Glucose Reference Range is dependent on time and content of last meal. Glucose of more than 200 mg/dL in a nonstressed, ambulatory subject supports the diagnosis of Diabetes Mellitus. Performed By: #### P HOS, MG, BNP #### [facility] [address] [place] [address] [place] Glucose [Mass/Vol] 208 mg/dL Normal [facility] Comment on above: Result Comment: [facility] Glucose Reference Range is dependent on time and content of last meal. Glucose of more than 200 mg/dL in a nonstressed, ambulatory subject supports the diagnosis of Diabetes Mellitus. PERFORMED BY: [address] [place] [address] PATHOLOGIST SALES REPRESENTATIVE TRAINEE KAYLIE CHICAS M.D. Performed By: #### G LULS #### Point of Care testing , Glucose [Mass/Vol] 143 mg/dL Normal [facility] Comment on above: Result Comment: [facility] Glucose Reference Range is dependent on time and content of last meal. Glucose of more than 200 mg/dL in a nonstressed, ambulatory subject supports the diagnosis of Diabetes Mellitus. PERFORMED BY: [address] [place] [address] PATHOLOGIST SALES REPRESENTATIVE TRAINEE KAYLIE CHICAS M.D. Performed By: #### P HOS, MG, BNP #### [facility] [address] [place] [address] No Panel InformationOrdered By: Anand Khan on 03-01-2024 Bedside Glucose Comment Glu2: cleaned meter [facility] Glucose Poct Glucometerson 0 02-29-2024 Glucose [Mass/Vol] 159 mg/dL Normal [facility] Comment on above: Result Comment: [facility] Glucose Reference Range is dependent on time and content of last meal. Glucose of more than 200 mg/dL in a nonstressed, ambulatory subject supports the diagnosis of Diabetes Mellitus. PERFORMED BY: [place] [phone] PATHOLOGIST SALES REPRESENTATIVE TRAINEE KAYLIE CHICAS M.D. Performed By: #### G LULS #### Point of Care testing , Glucose [Mass/Vol] 152 mg/dL Normal [facility] Comment on above: Result Comment: [facility] Glucose Reference Range is dependent on time and content of last meal. Glucose of more than 200 mg/dL in a nonstressed, ambulatory subject supports the diagnosis of Diabetes Mellitus. PERFORMED BY: [place] [phone] PATHOLOGIST SALES REPRESENTATIVE TRAINEE KAYLIE CHICAS M.D. Performed By: #### G LULS #### Point of Care testing , Glucose [Mass/Vol] 140 mg/dL Normal [facility] Comment on above: Result Comment: [facility] Glucose Reference Range is dependent on time and content of last meal. Glucose of more than 200 mg/dL in a nonstressed, ambulatory subject supports the diagnosis of Diabetes Mellitus. PERFORMED BY: [place] [address] PATHOLOGIST SALES REPRESENTATIVE TRAINEE KAYLIE CHICAS M.D. Performed By: #### P HOS, MG, BNP #### [facility] [address] [place] [address] Glucose [Mass/Vol] 169 mg/dL Normal [facility] Comment on above: Result Comment: [facility] Glucose Reference Range is dependent on time and content of last meal. Glucose of more than 200 mg/dL in a nonstressed, ambulatory subject supports the diagnosis of Diabetes Mellitus. PERFORMED BY: [address] [place] [id number] PATHOLOGIST SALES REPRESENTATIVE TRAINEE KAYLIE CHICAS M.D. Performed By: #### P HOS, MG, BNP #### [facility] [address] [place], [place] [id number] [facility] Glucose Poct Glucometerson 0 02-28-2024 Glucose [Mass/Vol] 170 mg/dL Normal [facility] Comment on above: Result Comment: [facility] Glucose Reference Range is dependent on time and content of last meal. Glucose of more than 200 mg/dL in a nonstressed, ambulatory subject supports the diagnosis of Diabetes Mellitus. PERFORMED BY: [address] [place] [address] PATHOLOGIST SALES REPRESENTATIVE TRAINEE KAYLIE CHICAS M.D. Performed By: #### P HOS, MG, BNP #### [address] [address] [place] Glucose [Mass/Vol] 144 mg/dL Normal [facility] Comment on above: Result Comment: [facility] Glucose Reference Range is dependent on time and content of last meal. Glucose of more than 200 mg/dL in a nonstressed, ambulatory subject supports the diagnosis of Diabetes Mellitus. PERFORMED BY: [facility] [address] [place] [id number] PATHOLOGIST SALES REPRESENTATIVE TRAINEE KAYLIE CHICAS M.D. Performed By: #### P HOS, MG, BNP #### [facility] [address] [place] [address] [place] Glucose [Mass/Vol] 190 mg/dL Normal [facility] Comment on above: Result Comment: [facility] Glucose Reference Range is dependent on time and content of last meal. Glucose of more than 200 mg/dL in a nonstressed, ambulatory subject supports the diagnosis of Diabetes Mellitus. PERFORMED BY: [facility] [address] [place] [id number] PATHOLOGIST SALES REPRESENTATIVE TRAINEE KAYLIE CHICAS M.D. Performed By: #### P HOS, MG, BNP #### [address] Glucose [Mass/Vol] 170 mg/dL Normal [facility] Comment on above: Result Comment: [place] [facility] Glucose Reference Range is dependent on time and content of last meal. Glucose of more than 200 mg/dL in a nonstressed, ambulatory subject supports the diagnosis of Diabetes Mellitus. PERFORMED BY: [place] [address] PATHOLOGIST SALES REPRESENTATIVE TRAINEE KAYLIE CHICAS M.D. Performed By: #### P HOS, MG, BNP #### [address] Glucose [Mass/Vol] 149 mg/dL Normal [facility] Comment on above: Result Comment: [facility] Glucose Reference Range is dependent on time and content of last meal. Glucose of more than 200 mg/dL in a nonstressed, ambulatory subject supports the diagnosis of Diabetes Mellitus. PERFORMED BY: [place] [address] PATHOLOGIST SALES REPRESENTATIVE TRAINEE KAYLIE CHICAS M.D. Performed By: #### G LULS #### Point of Care testing , Glucose Poct Glucometerson 0 02-27-2024 Glucose [Mass/Vol] 134 mg/dL Normal [facility] Comment on above: Result Comment: [facility] Glucose Reference Range is dependent on time and content of last meal. Glucose of more than 200 mg/dL in a nonstressed, ambulatory subject supports the diagnosis of Diabetes Mellitus. PERFORMED BY: [place] [address] PATHOLOGIST SALES REPRESENTATIVE TRAINEE KAYLIE CHICAS M.D. Performed By: #### G LULS #### Point of Care testing , Glucose [Mass/Vol] 215 mg/dL Normal [facility] Comment on above: Result Comment: [facility] Glucose Reference Range is dependent on time and content of last meal. Glucose of more than 200 mg/dL in a nonstressed, ambulatory subject supports the diagnosis of Diabetes Mellitus. PERFORMED BY: [place] [phone] PATHOLOGIST SALES REPRESENTATIVE TRAINEE KAYLIE CHICAS M.D. Performed By: #### P HOS, MG, BNP #### [address] Glucose [Mass/Vol] 171 mg/dL Normal [facility] Comment on above: Result Comment: [facility] Glucose Reference Range is dependent on time and content of last meal. Glucose of more than 200 mg/dL in a nonstressed, ambulatory subject supports the diagnosis of Diabetes Mellitus. PERFORMED BY: [place] [address] PATHOLOGIST SALES REPRESENTATIVE TRAINEE KAYLIE CHICAS M.D. Performed By: #### G LULS #### Point of Care testing , Glucose [Mass/Vol] 141 mg/dL Normal [facility] Comment on above: Result Comment: [facility] Glucose Reference Range is dependent on time and content of last meal. Glucose of more than 200 mg/dL in a nonstressed, ambulatory subject supports the diagnosis of Diabetes Mellitus. PERFORMED BY: [place] [phone] PATHOLOGIST SALES REPRESENTATIVE TRAINEE KAYLIE CHICAS M.D. Performed By: #### P HOS, MG, BNP #### [address] Glucose Poct Glucometerson 0 02-26-2024 Glucose [Mass/Vol] 144 mg/dL Normal [facility] Comment on above: Result Comment: [facility] Glucose Reference Range is dependent on time and content of last meal. Glucose of more than 200 mg/dL in a nonstressed, ambulatory subject supports the diagnosis of Diabetes Mellitus. PERFORMED BY: [place] [phone] PATHOLOGIST SALES REPRESENTATIVE TRAINEE KAYLIE CHICAS M.D. Performed By: #### G LULS #### Point of Care testing , Commemt1 Glu2: Cleaned Meter Normal [facility] Comment on above: Result Comment: PERF ORMED BY: [address] [place] [address] PATHOLOGIST SALES REPRESENTATIVE TRAINEE KAYLIE CHICAS M.D. Performed By: #### P HOS, MG, BNP #### [address] Glucose [Mass/Vol] 164 mg/dL Normal [facility] Comment on above: Result Comment: [facility] Glucose Reference Range is dependent on time and content of last meal. Glucose of more than 200 mg/dL in a nonstressed, ambulatory subject supports the diagnosis of Diabetes Mellitus. Performed By: #### P HOS, MG, BNP #### [address] Commemt1 Glu2: Cleaned Meter Normal [facility] Comment on above: Result Comment: PERF ORMED BY: [place] [address] PATHOLOGIST SALES REPRESENTATIVE TRAINEE KAYLIE CHICAS M.D. Performed By: #### P HOS, MG, BNP #### [address] Glucose [Mass/Vol] 137 mg/dL Normal [facility] Comment on above: Result Comment: [facility] Glucose Reference Range is dependent on time and content of last meal. Glucose of more than 200 mg/dL in a nonstressed, ambulatory subject supports the diagnosis of Diabetes Mellitus. Performed By: #### P HOS, MG, BNP #### [address] Glucose [Mass/Vol] 157 mg/dL Normal [facility] Comment on above: Result Comment: [facility] Glucose Reference Range is dependent on time and content of last meal. Glucose of more than 200 mg/dL in a nonstressed, ambulatory subject supports the diagnosis of Diabetes Mellitus. PERFORMED BY: [place] [address] PATHOLOGIST SALES REPRESENTATIVE TRAINEE KAYLIE CHICAS M.D. Performed By: #### G LULS #### Point of Care testing , Alanine aminotransferase [En zymatic activity/volume] in Serum or PlasmaOrdered By: Navi Torres on 02-25-2024 ALT [Catalytic activity/Vol] 18 U/L Normal 7-52 [facility] Comment on above: Performed By: #### H S TROP #### [address] Albumin [Mass/volume] in Ser um or Plasma by Bromocresol green (BCG) dye binding methoOrdered By: Navi Isaacgee on 02-25-2024 Albumin BCG dye [Mass/Vol] 3.2 g/dL Low 3.5-5.7 [facility] Alkaline phosphatase [Enzyma tic activity/volume] in Serum or PlasmaOrdered By: Naviaurora Torres on 02-25-2024 ALP [Catalytic activity/Vol] 61 U/L Normal 34-104 [facility] Comment on above: Performed By: #### H S TROP #### [address] Aspartate aminotransferase [ Enzymatic activity/volume] in Serum or PlasmaOrdered By: Navirafita Torres on 02-25-2024 AST [Catalytic activity/Vol] 21 U/L Normal 13-39 [facility] Comment on above: Performed By: #### H S TROP #### [address] Automated basophil %Ordered By: Cash Abreu on 02-25-2024 Basophils/100 WBC (Bld) 0.7 % Normal . [facility] Comment on above: Performed By: #### H S TROP #### [address] Automated basophil countOrde red By: Cash Abreu on 02-25-2024 Basophils (Bld) [#/Vol] 0.0 10*3/uL Normal 0.0-0.2 [facility] Comment on above: Result Comment: PERF ORMED BY: [place] [address] PATHOLOGIST SALES REPRESENTATIVE TRAINEE KAYLIE CHICAS M.D. Performed By: #### H S TROP #### [place] [address] [place] Automated blood monocyte cou ntOrdered By: Cash Abreu on 02-25-2024 Monocytes (Bld) [#/Vol] 0.6 10*3/uL Normal 0.0-0.8 [facility] Comment on above: Performed By: #### H S TROP #### [address] Automated eosinophil %Ordere d By: Cash Abreu on 02-25-2024 Eosinophils/100 WBC (Bld) 6.1 % Normal . [facility] Comment on above: Performed By: #### H S TROP #### [address] Automated eosinophil countOr dered By: Cash Abreu on 02-25-2024 Eosinophils (Bld) [#/Vol] 0.4 10*3/uL Normal 0.0-0.45 [facility] Comment on above: Performed By: #### H S TROP #### [address] Automated monocyte %Ordered By: Cash Abreu on 02-25-2024 Monocytes/100 WBC (Bld) 9.3 % Normal . [facility] Comment on above: Performed By: #### H S TROP #### [address] Automated neutrophil %Ordere d By: Cash Abreu on 02-25-2024 Neutrophils/100 WBC (Bld) 68.6 % Normal . [facility] Comment on above: Performed By: #### H S TROP #### [address] Bilirubin.total [Mass/volume ] in Serum or PlasmaOrdered By: Navi Torres on 02-25-2024 Bilirubin [Mass/Vol] 0.6 mg/dL Normal 0.3-1.0 [facility] Comment on above: Performed By: #### H S TROP #### [address] Calcium [Mass/volume] in Ser um or PlasmaOrdered By: Navi Torres on 02-25-2024 Calcium [Mass/Vol] 8.6 mg/dL Normal 8.6-10.3 [facility] Comment on above: Performed By: #### H S TROP #### [facility] [address] Carbon dioxide, total [Moles /volume] in Serum or PlasmaOrdered By: Navi Torres on 02-25-2024 CO2 [Moles/Vol] 28.5 mmol/L Normal 21.0-31.0 [facility] Comment on above: Performed By: #### H S TROP #### [facility] [address] [place] [address] Chloride [Moles/volume] in S rose or PlasmaOrdered By: Navi Torres on 02-25-2024 Chloride [Moles/Vol] 104 mmol/L Normal 98-107 [facility] Comment on above: Performed By: #### H S TROP #### [address] Complete Blood Count Auto Di ffon 02-25-2024 Mean Corpuscular HGB Conc 34.2 g/dL Normal 32.0-35.0 [facility] Comment on above: Performed By: #### H S TROP #### [address] NRBC% 0.1 /100{WBC} Normal 0-0.5 [facility] Comment on above: Performed By: #### H S TROP #### [address] Comprehensive Metabolic Pane leander 02-25-2024 Albumin [Mass/Vol] 3.2 g/dL Low 3.5-5.7 [facility] Comment on above: Performed By: #### H S TROP #### [address] Creatinine Clr Calc Pharmacy 61.42 Normal [facility] Comment on above: Result Comment: PERF ORMED BY: [place] [address] PATHOLOGIST SALES REPRESENTATIVE TRAINEE KAYLIE CHICAS M.D. Performed By: #### H S TROP #### [address] GFR/1.73 sq M.predicted MDRD (S/P/Bld) [Vol rate/Area] mL/min/{1.73_m2} Normal [facility] Comment on above: Performed By: #### H S TROP #### [address] Creatinine [Mass/volume] in Serum or PlasmaOrdered By: Navi Torres on 02-25-2024 Creatinine [Mass/Vol] 0.54 mg/dL Low 0.60-1.20 [facility] Comment on above: Performed By: #### H S TROP #### [address] Erythrocyte distribution wid th [Ratio] by Automated countOrdered By: Cash Abreu on 02-25-2024 Erythrocyte distribution width (RBC) [Ratio] 14.6 % Normal 11.9-15.3 [facility] Comment on above: Performed By: #### H S TROP #### [address] Erythrocytes [#/volume] in B lood by Automated countOrdered By: Cash Abreu on 02-25-2024 RBC (Bld) [#/Vol] 3.62 10*6/uL Normal 3.60-5.00 [facility] Comment on above: Performed By: #### H S TROP #### [address] Glucose Poct Glucometerson 0 02-25-2024 Glucose [Mass/Vol] 177 mg/dL Normal [facility] Comment on above: Result Comment: [place] Glucose Reference Range is dependent on time and content of last meal. Glucose of more than 200 mg/dL in a nonstressed, ambulatory subject supports the diagnosis of Diabetes Mellitus. PERFORMED BY: [address] [place] [address] PATHOLOGIST SALES REPRESENTATIVE TRAINEE KAYLIE CHICAS M.D. Performed By: #### G LULS #### Point of Care testing , Glucose [Mass/Vol] 137 mg/dL Normal [facility] Comment on above: Result Comment: [place] om Glucose Reference Range is dependent on time and content of last meal. Glucose of more than 200 mg/dL in a nonstressed, ambulatory subject supports the diagnosis of Diabetes Mellitus. PERFORMED BY: [place] [phone] PATHOLOGIST SALES REPRESENTATIVE TRAINEE KAYLIE CHICAS M.D. Performed By: #### P HOS, MG, BNP #### [facility] [address] [place] [address] Glucose [Mass/Vol] 167 mg/dL Normal [facility] Comment on above: Result Comment: [place] om Glucose Reference Range is dependent on time and content of last meal. Glucose of more than 200 mg/dL in a nonstressed, ambulatory subject supports the diagnosis of Diabetes Mellitus. PERFORMED BY: [place] [address] PATHOLOGIST SALES REPRESENTATIVE TRAINEE KAYLIE CHICAS M.D. Performed By: #### G LULS #### Point of Care testing , Glucose [Mass/Vol] 144 mg/dL Normal [facility] Comment on above: Result Comment: [place] om Glucose Reference Range is dependent on time and content of last meal. Glucose of more than 200 mg/dL in a nonstressed, ambulatory subject supports the diagnosis of Diabetes Mellitus. PERFORMED BY: [place] [phone] PATHOLOGIST SALES REPRESENTATIVE TRAINEE KAYLIE CHICAS M.D. Performed By: #### H S TROP #### [facility] [address] [place] [address] [place] Glucose [Mass/volume] in Ser um or PlasmaOrdered By: Navi Torres on 02-25-2024 Glucose [Mass/Vol] 160 mg/dL High 70-100 [facility] Comment on above: ADA recommended refe rence rangeRandom Glucose Reference Range is dependent on time and content of last meal. Glucose of more than 200 mg/dL in a nonstressed, ambulatory subject supports the diagnosis of Diabetes Mellitus. Result Comment: [facility] Glucose Reference Range is dependent on time and content of last meal. Glucose of more than 200 mg/dL in a nonstressed, ambulatory subject supports the diagnosis of Diabetes Mellitus. ADA recommended reference range Performed By: #### H S TROP #### [address] Hematocrit [Volume Fraction] of Blood by Automated countOrdered By: Cash Abreu on 02-25-2024 Hematocrit (Bld) [Volume fraction] 32.0 % Low 34.0-46.4 [facility] Comment on above: Performed By: #### H S TROP #### [address] Hemoglobin [Mass/volume] in BloodOrdered By: Cash Abreu on 02-25-2024 Hemoglobin (Bld) [Mass/Vol] 10.9 g/dL Low 11.8-15.4 [facility] Comment on above: Performed By: #### H S TROP #### [address] Leukocytes [#/volume] correc flores for nucleated erythrocytes in Blood by Automated counOrdered By: Cash Abreu on 02-25-2024 WBC corrected for nucl RBC Auto (Bld) [#/Vol] 6.8 10*3/uL 3.8-11.6 [facility] Leukocytes [#/volume] in Blo od by Automated countOrdered By: Cash Abreu on 02-25-2024 WBC (Bld) [#/Vol] 6.8 10*3/uL Normal 3.8-11.6 [facility] Comment on above: Performed By: #### H S TROP #### [address] Lymphocytes [#/volume] in Bl ood by Automated countOrdered By: Cash Abreu on 02-25-2024 Lymphocytes (Bld) [#/Vol] 1.0 10*3/uL Normal 1.00-4.8 [facility] Comment on above: Performed By: #### H S TROP #### [address] Lymphocytes/100 leukocytes i n Blood by Automated countOrdered By: Cash Abreu on 02-25-2024 Lymphocytes/100 WBC (Bld) 15.3 % Normal . [facility] Comment on above: Performed By: #### H S TROP #### [address] MCH [Entitic mass] by Automa flores countOrdered By: Cash Abreu on 02-25-2024 MCH (RBC) [Entitic mass] 30.2 pg Normal 24.7-34.3 [facility] Comment on above: Performed By: #### H S TROP #### [address] MCHC Auto (RBC) [Mass/Vol]Or dered By: Cash Abreu on 02-25-2024 MCHC (RBC) [Mass/Vol] 34.2 g/dL 32.0-35.0 [facility] MCV [Entitic volume] by Auto mated countOrdered By: Cash Abreu on 02-25-2024 MCV (RBC) [Entitic vol] 88.3 fL Normal 80-100 [facility] Comment on above: Performed By: #### H S TROP #### [address] Neutrophils [#/volume] in Bl ood by Automated countOrdered By: Cash Abreu on 02-25-2024 Neutrophils (Bld) [#/Vol] 4.7 10*3/uL Normal 1.8-7.7 [facility] Comment on above: Performed By: #### H S TROP #### [address] No Panel InformationOrdered By: Navi Torres on 02-25-2024 Estimated GFR (CKD-EPI) > 60.0 mL/Min [facility] Creatinine Clearance (Chem 61.42 [facility] Nucleated erythrocytes [Pres ence] in Blood by Automated countOrdered By: Cash Abreu on 02-25-2024 Nucleated RBC Auto Ql (Bld) 0.1 /100{WBC} 0-0.5 [facility] Platelet mean volume [Entiti c volume] in Blood by Automated countOrdered By: Cash Abreu on 02-25-2024 Platelet mean volume (Bld) [Entitic vol] 8.2 fL Normal 6.3-10.7 [facility] Comment on above: Performed By: #### H S TROP #### [address] Platelets [#/volume] in Bloo d by Automated countOrdered By: Cash Abreu on 02-25-2024 Platelets (Bld) [#/Vol] 237 10*3/uL Normal 150-450 [facility] Comment on above: Performed By: #### H S TROP #### [address] Potassium [Moles/volume] in Serum or PlasmaOrdered By: Navi Torres on 02-25-2024 Potassium [Moles/Vol] 3.8 mmol/L Normal 3.5-5.1 [facility] Comment on above: Performed By: #### H S TROP #### [address] Protein [Mass/volume] in Ser um or PlasmaOrdered By: Navi Torres on 02-25-2024 Protein [Mass/Vol] 5.9 g/dL Low 6.4-8.9 [facility] Comment on above: Performed By: #### H S TROP #### [address] Serum globulin measurement b y calculation (mass/volume)Ordered By: Navi Torres on 02-25-2024 Globulin (S) [Mass/Vol] 2.7 g/dL Normal [facility] Comment on above: Performed By: #### H S TROP #### [address] Serum or plasma albumin/glob ulin mass ratioOrdered By: Navirafita Torres on 02-25-2024 Albumin/Globulin [Mass ratio] 1.2 {ratio} Normal [facility] Comment on above: Performed By: #### H S TROP #### [address] Serum or plasma anion gap de terminationOrdered By: Navirafita Rodriguezkpor on 02-25-2024 Anion gap [Moles/Vol] 10.3 mmol/L Normal 6.0-15.0 [facility] Comment on above: Performed By: #### H S TROP #### [place] [address] [place] Sodium [Moles/volume] in Ser um or PlasmaOrdered By: Navirafita Torres on 02-25-2024 Sodium [Moles/Vol] 139 mmol/L Normal 136-145 [facility] Comment on above: Performed By: #### H S TROP #### [address] Urea nitrogen [Mass/volume] in Serum or PlasmaOrdered By: Navi Jenniferromelia on 02-25-2024 Urea nitrogen [Mass/Vol] 20 mg/dL Normal 7-25 [facility] Comment on above: Performed By: #### H S TROP #### [address] Complete Blood Count Auto Di ffon 02-24-2024 Basophils (Bld) [#/Vol] 0.0 10*3/uL Normal 0.0-0.2 [facility] Comment on above: Result Comment: PERF ORMED BY: [place] [address] PATHOLOGIST SALES REPRESENTATIVE TRAINEE KAYLIE CHICAS M.D. Performed By: #### H S TROP #### [place] [address] [place] Basophils/100 WBC (Bld) 0.6 % Normal . T [facility] Comment on above: Performed By: #### H S TROP #### [place] [address] Eosinophils (Bld) [#/Vol] 0.4 10*3/uL Normal 0.0-0.45 [facility] Comment on above: Performed By: #### H S TROP #### [address] Eosinophils/100 WBC (Bld) 6.0 % Normal . [facility] Comment on above: Performed By: #### H S TROP #### [address] Erythrocyte distribution width (RBC) [Ratio] 14.9 % Normal 11.9-15.3 [facility] Comment on above: Performed By: #### H S TROP #### [address] Hematocrit (Bld) [Volume fraction] 31.9 % Low 34.0-46.4 [facility] Comment on above: Performed By: #### H S TROP #### [address] Hemoglobin (Bld) [Mass/Vol] 10.7 g/dL Low 11.8-15.4 [facility] Comment on above: Performed By: #### H S TROP #### [address] Lymphocytes (Bld) [#/Vol] 1.0 10*3/uL Normal 1.00-4.8 [facility] Comment on above: Performed By: #### H S TROP #### [address] Lymphocytes/100 WBC (Bld) 14.9 % Normal . [facility] Comment on above: Performed By: #### H S TROP #### [address] MCH (RBC) [Entitic mass] 29.5 pg Normal 24.7-34.3 [facility] Comment on above: Performed By: #### H S TROP #### [address] MCV (RBC) [Entitic vol] 87.6 fL Normal 80-100 [facility] Comment on above: Performed By: #### H S TROP #### [address] Mean Corpuscular HGB Conc 33.7 g/dL Normal 32.0-35.0 [facility] Comment on above: Performed By: #### H S TROP #### [address] Monocytes (Bld) [#/Vol] 0.7 10*3/uL Normal 0.0-0.8 [facility] Comment on above: Performed By: #### H S TROP #### [address] Monocytes/100 WBC (Bld) 9.5 % Normal . [facility] Comment on above: Performed By: #### H S TROP #### [address] Neutrophils (Bld) [#/Vol] 4.9 10*3/uL Normal 1.8-7.7 [facility] Comment on above: Performed By: #### H S TROP #### [address] Neutrophils/100 WBC (Bld) 69.0 % Normal . [facility] Comment on above: Performed By: #### H S TROP #### [address] NRBC% 0.2 /100{WBC} Normal 0-0.5 [facility] Comment on above: Performed By: #### H S TROP #### [address] Platelet mean volume (Bld) [Entitic vol] 8.1 fL Normal 6.3-10.7 [facility] Comment on above: Performed By: #### H S TROP #### [address] Platelets (Bld) [#/Vol] 219 10*3/uL Normal 150-450 [facility] Comment on above: Performed By: #### H S TROP #### [address] RBC (Bld) [#/Vol] 3.64 10*6/uL Normal 3.60-5.00 [facility] Comment on above: Performed By: #### H S TROP #### [address] WBC (Bld) [#/Vol] 7.1 10*3/uL Normal 3.8-11.6 [facility] Comment on above: Performed By: #### H S TROP #### [address] Comprehensive Metabolic Pane leander 02-24-2024 Albumin [Mass/Vol] 3.2 g/dL Low 3.5-5.7 [facility] Comment on above: Performed By: #### H S TROP #### [address] Albumin/Globulin [Mass ratio] 1.4 {ratio} Normal [facility] Comment on above: Performed By: #### H S TROP #### [address] ALP [Catalytic activity/Vol] 64 U/L Normal 34-104 [facility] Comment on above: Performed By: #### H S TROP #### [address] ALT [Catalytic activity/Vol] 18 U/L Normal 7-52 [facility] Comment on above: Performed By: #### H S TROP #### [address] Anion gap [Moles/Vol] 9.3 mmol/L Normal 6.0-15.0 [facility] Comment on above: Performed By: #### H S TROP #### [address] AST [Catalytic activity/Vol] 22 U/L Normal 13-39 [facility] Comment on above: Performed By: #### H S TROP #### [address] Bilirubin [Mass/Vol] 0.6 mg/dL Normal 0.3-1.0 [facility] Comment on above: Performed By: #### H S TROP #### [facility] [address] Calcium [Mass/Vol] 8.4 mg/dL Low 8.6-10.3 [facility] Comment on above: Performed By: #### H S TROP #### [address] Chloride [Moles/Vol] 107 mmol/L Normal 98-107 [facility] Comment on above: Performed By: #### H S TROP #### [address] CO2 [Moles/Vol] 27.9 mmol/L Normal 21.0-31.0 [facility] Comment on above: Performed By: #### H S TROP #### [address] Creatinine [Mass/Vol] 0.46 mg/dL Low 0.60-1.20 [facility] Comment on above: Performed By: #### H S TROP #### [address] Creatinine Clr Calc Pharmacy 61.73 Normal [facility] Comment on above: Result Comment: PERF ORMED BY: [place] [address] PATHOLOGIST SALES REPRESENTATIVE TRAINEE KAYLIE CHICAS M.D. Performed By: #### H S TROP #### [address] GFR/1.73 sq M.predicted MDRD (S/P/Bld) [Vol rate/Area] mL/min/{1.73_m2} Normal [facility] Comment on above: Performed By: #### H S TROP #### [place] [address] [place] Globulin (S) [Mass/Vol] 2.3 g/dL Normal T he [facility] Comment on above: Performed By: #### H S TROP #### [address] Glucose [Mass/Vol] 160 mg/dL High 70-100 [facility] Comment on above: Result Comment: [place] Glucose Reference Range is dependent on time and content of last meal. Glucose of more than 200 mg/dL in a nonstressed, ambulatory subject supports the diagnosis of Diabetes Mellitus. ADA recommended reference range Performed By: #### H S TROP #### [address] Potassium [Moles/Vol] 4.2 mmol/L Normal 3.5-5.1 [facility] Comment on above: Performed By: #### H S TROP #### [address] Protein [Mass/Vol] 5.5 g/dL Low 6.4-8.9 [facility] Comment on above: Performed By: #### H S TROP #### [address] Sodium [Moles/Vol] 140 mmol/L Normal 136-145 [facility] Comment on above: Performed By: #### H S TROP #### [place] [address] [place] Urea nitrogen [Mass/Vol] 19 mg/dL Normal 7-25 [facility] Comment on above: Performed By: #### H S TROP #### [place] [address] [place] Creatine kinase [Enzymatic a ctivity/volume] in Serum or PlasmaOrdered By: Navi Torres on 02-24-2024 CK [Catalytic activity/Vol] 187 U/L Normal 30-223 [facility] Comment on above: Result Comment: PERF ORMED BY: [place] [address] PATHOLOGIST SALES REPRESENTATIVE TRAINEE KAYLIE CHICAS M.D. Performed By: #### H S TROP #### [address] Glucose Poct Glucometerson 0 02-24-2024 Glucose [Mass/Vol] 159 mg/dL Normal [facility] Comment on above: Result Comment: [place] om Glucose Reference Range is dependent on time and content of last meal. Glucose of more than 200 mg/dL in a nonstressed, ambulatory subject supports the diagnosis of Diabetes Mellitus. PERFORMED BY: [place] [address] PATHOLOGIST SALES REPRESENTATIVE TRAINEE KAYLIE CHICAS M.D. Performed By: #### P HOS, MG, BNP #### [address] Glucose [Mass/Vol] 128 mg/dL Normal [facility] Comment on above: Result Comment: [place] om Glucose Reference Range is dependent on time and content of last meal. Glucose of more than 200 mg/dL in a nonstressed, ambulatory subject supports the diagnosis of Diabetes Mellitus. PERFORMED BY: [place] [address] PATHOLOGIST SALES REPRESENTATIVE TRAINEE KAYLIE CHICAS M.D. Performed By: #### H S TROP #### [address] Glucose [Mass/Vol] 123 mg/dL Normal [facility] Comment on above: Result Comment: [place] om Glucose Reference Range is dependent on time and content of last meal. Glucose of more than 200 mg/dL in a nonstressed, ambulatory subject supports the diagnosis of Diabetes Mellitus. PERFORMED BY: [place] [address] PATHOLOGIST SALES REPRESENTATIVE TRAINEE KAYLIE CHICAS M.D. Performed By: #### H S TROP #### [address] Glucose [Mass/Vol] 147 mg/dL Normal [facility] Comment on above: Result Comment: [place] om Glucose Reference Range is dependent on time and content of last meal. Glucose of more than 200 mg/dL in a nonstressed, ambulatory subject supports the diagnosis of Diabetes Mellitus. PERFORMED BY: [place] [address] PATHOLOGIST SALES REPRESENTATIVE TRAINEE KAYLIE CHICAS M.D. Performed By: #### P HOS, MG, BNP #### [address] Complete Blood Count Auto Di ffon 02-23-2024 Basophils (Bld) [#/Vol] 0.0 10*3/uL Normal 0.0-0.2 [facility] Comment on above: Result Comment: PERF ORMED BY: [place] [address] PATHOLOGIST SALES REPRESENTATIVE TRAINEE KAYLIE CHICAS M.D. Performed By: #### P HOS, MG, BNP #### [address] Basophils/100 WBC (Bld) 0.6 % Normal . T ladonna [facility] Comment on above: Performed By: #### P HOS, MG, BNP #### [address] Eosinophils (Bld) [#/Vol] 0.3 10*3/uL Normal 0.0-0.45 [facility] Comment on above: Performed By: #### P HOS, MG, BNP #### [address] Eosinophils/100 WBC (Bld) 5.2 % Normal . [facility] Comment on above: Performed By: #### P HOS, MG, BNP #### [address] Erythrocyte distribution width (RBC) [Ratio] 14.8 % Normal 11.9-15.3 [facility] Comment on above: Performed By: #### P HOS, MG, BNP #### [address] Hematocrit (Bld) [Volume fraction] 32.5 % Low 34.0-46.4 [facility] Comment on above: Performed By: #### P HOS, MG, BNP #### [address] Hemoglobin (Bld) [Mass/Vol] 10.9 g/dL Low 11.8-15.4 [facility] Comment on above: Performed By: #### P HOS, MG, BNP #### [address] Lymphocytes (Bld) [#/Vol] 1.0 10*3/uL Normal 1.00-4.8 [facility] Comment on above: Performed By: #### P HOS, MG, BNP #### [address] Lymphocytes/100 WBC (Bld) 15.1 % Normal . [facility] Comment on above: Performed By: #### P HOS, MG, BNP #### [address] MCH (RBC) [Entitic mass] 29.3 pg Normal 24.7-34.3 [facility] Comment on above: Performed By: #### P HOS, MG, BNP #### [address] MCV (RBC) [Entitic vol] 87.8 fL Normal 80-100 [facility] Comment on above: Performed By: #### P HOS, MG, BNP #### [address] Mean Corpuscular HGB Conc 33.4 g/dL Normal 32.0-35.0 [facility] Comment on above: Performed By: #### P HOS, MG, BNP #### [address] Monocytes (Bld) [#/Vol] 0.6 10*3/uL Normal 0.0-0.8 [facility] Comment on above: Performed By: #### P HOS, MG, BNP #### [address] Monocytes/100 WBC (Bld) 9.9 % Normal . T ladonna [facility] Comment on above: Performed By: #### P HOS, MG, BNP #### [facility] [address] [place] [address] [place] Neutrophils (Bld) [#/Vol] 4.4 10*3/uL Normal 1.8-7.7 [facility] Comment on above: Performed By: #### P HOS, MG, BNP #### [facility] [address] [place] [address] [place] Neutrophils/100 WBC (Bld) 69.2 % Normal . [facility] Comment on above: Performed By: #### P HOS, MG, BNP #### [facility] [address] NRBC% 0.0 /100{WBC} Normal 0-0.5 [facility] Comment on above: Performed By: #### P HOS, MG, BNP #### [facility] [address] Platelet mean volume (Bld) [Entitic vol] 8.5 fL Normal 6.3-10.7 [facility] Comment on above: Performed By: #### P HOS, MG, BNP #### [facility] [address] [place] [address] [place] Platelets (Bld) [#/Vol] 218 10*3/uL Normal 150-450 [facility] Comment on above: Performed By: #### P HOS, MG, BNP #### [facility] [address] [place] [address] [place] RBC (Bld) [#/Vol] 3.71 10*6/uL Normal 3.60-5.00 [facility] Comment on above: Performed By: #### P HOS, MG, BNP #### [facility] [address] [place] [address] [place] WBC (Bld) [#/Vol] 6.4 10*3/uL Normal 3.8-11.6 [facility] Comment on above: Performed By: #### P HOS, MG, BNP #### [facility] [address] Comprehensive Metabolic Pane leander 02-23-2024 Albumin [Mass/Vol] 3.2 g/dL Low 3.5-5.7 [facility] Comment on above: Performed By: #### G LULS #### Point of Care testing , Albumin/Globulin [Mass ratio] 1.3 {ratio} Normal [facility] Comment on above: Performed By: #### G LULS #### Point of Care testing , ALP [Catalytic activity/Vol] 67 U/L Normal 34-104 [facility] Comment on above: Performed By: #### G LULS #### Point of Care testing , ALT [Catalytic activity/Vol] 19 U/L Normal 7-52 [facility] Comment on above: Performed By: #### G LULS #### Point of Care testing , Anion gap [Moles/Vol] 9.4 mmol/L Normal 6.0-15.0 [facility] Comment on above: Performed By: #### G LULS #### Point of Care testing , AST [Catalytic activity/Vol] 27 U/L Normal 13-39 [facility] Comment on above: Performed By: #### G LULS #### Point of Care testing , Bilirubin [Mass/Vol] 0.6 mg/dL Normal 0.3-1.0 [facility] Comment on above: Performed By: #### G LULS #### Point of Care testing , Calcium [Mass/Vol] 8.5 mg/dL Low 8.6-10.3 [facility] Comment on above: Performed By: #### G LULS #### Point of Care testing , Chloride [Moles/Vol] 105 mmol/L Normal 98-107 [facility] Comment on above: Performed By: #### G LULS #### Point of Care testing , CO2 [Moles/Vol] 28.8 mmol/L Normal 21.0-31.0 [facility] Comment on above: Performed By: #### G LULS #### Point of Care testing , Creatinine [Mass/Vol] 0.48 mg/dL Low 0.60-1.20 [facility] Comment on above: Performed By: #### G LULS #### Point of Care testing , Creatinine Clr Calc Pharmacy 61.73 Normal [facility] Comment on above: Result Comment: PERF ORMED BY: [facility] [place] [address] PATHOLOGIST SALES REPRESENTATIVE TRAINEE KAYLIE CHICAS M.D. Performed By: #### G LULS #### Point of Care testing , GFR/1.73 sq M.predicted MDRD (S/P/Bld) [Vol rate/Area] mL/min/{1.73_m2} Normal [facility] Comment on above: Performed By: #### G LULS #### Point of Care testing , Globulin (S) [Mass/Vol] 2.5 g/dL Normal T he [facility] Comment on above: Performed By: #### G LULS #### Point of Care testing , Glucose [Mass/Vol] 159 mg/dL High 70-100 [facility] Comment on above: Result Comment: [facility] Glucose Reference Range is dependent on time and content of last meal. Glucose of more than 200 mg/dL in a nonstressed, ambulatory subject supports the diagnosis of Diabetes Mellitus. ADA recommended reference range Performed By: #### G LULS #### Point of Care testing , Potassium [Moles/Vol] 4.2 mmol/L Normal 3.5-5.1 [facility] Comment on above: Performed By: #### G LULS #### Point of Care testing , Protein [Mass/Vol] 5.7 g/dL Low 6.4-8.9 [facility] Comment on above: Performed By: #### G LULS #### Point of Care testing , Sodium [Moles/Vol] 139 mmol/L Normal 136-145 [facility] Comment on above: Performed By: #### G LULS #### Point of Care testing , Urea nitrogen [Mass/Vol] 20 mg/dL Normal 7-25 [facility] Comment on above: Performed By: #### G LULS #### Point of Care testing , Creatine Kinaseon 02-23-2024 CK [Catalytic activity/Vol] 255 U/L High 30-223 [facility] Comment on above: Result Comment: PERF ORMED BY: [place] [address] PATHOLOGIST SALES REPRESENTATIVE TRAINEE KAYLIE CHICAS M.D. Performed By: #### P HOS, MG, BNP #### [place] [id number] [place] Glucose Poct Glucometerson 0 02-23-2024 Commemt1 Glu2: Cleaned Meter Normal [facility] Comment on above: Result Comment: PERF ORMED BY: [place] [address] PATHOLOGIST SALES REPRESENTATIVE TRAINEE KAYLIE CHICAS M.D. Performed By: #### P HOS, MG, BNP #### [place] [address] [place] Glucose [Mass/Vol] 180 mg/dL Normal [facility] Comment on above: Result Comment: [place] [facility] Glucose Reference Range is dependent on time and content of last meal. Glucose of more than 200 mg/dL in a nonstressed, ambulatory subject supports the diagnosis of Diabetes Mellitus. Performed By: #### P HOS, MG, BNP #### [place] [address] [place] Commemt1 Glu2: Cleaned Meter Normal [facility] Comment on above: Result Comment: PERF ORMED BY: [place] [address] PATHOLOGIST SALES REPRESENTATIVE TRAINEE KAYLIE HCICAS M.D. Performed By: #### H S TROP #### [place] [id number] [place] Glucose [Mass/Vol] 159 mg/dL Normal [facility] Comment on above: Result Comment: [place] [facility] Glucose Reference Range is dependent on time and content of last meal. Glucose of more than 200 mg/dL in a nonstressed, ambulatory subject supports the diagnosis of Diabetes Mellitus. Performed By: #### H S TROP #### [place] [id number] [place] Glucose [Mass/Vol] 162 mg/dL Normal [facility] Comment on above: Result Comment: [facility] Glucose Reference Range is dependent on time and content of last meal. Glucose of more than 200 mg/dL in a nonstressed, ambulatory subject supports the diagnosis of Diabetes Mellitus. PERFORMED BY: [place] [address] PATHOLOGIST SALES REPRESENTATIVE TRAINEE KAYLIE CHICAS M.D. Performed By: #### H S TROP #### [address] Commemt1 Glu2: Cleaned Meter Normal [facility] Comment on above: Result Comment: PERF ORMED BY: [place] [address] PATHOLOGIST SALES REPRESENTATIVE TRAINEE KAYLIE CHICAS M.D. Performed By: #### P HOS, MG, BNP #### [address] Glucose [Mass/Vol] 156 mg/dL Normal [facility] Comment on above: Result Comment: [facility] Glucose Reference Range is dependent on time and content of last meal. Glucose of more than 200 mg/dL in a nonstressed, ambulatory subject supports the diagnosis of Diabetes Mellitus. Performed By: #### P HOS, MG, BNP #### [address] pelvis w conon 02-22-2024 CT pelvis w con [facility] Main [place] [address] [place] [address] CT Scan Report Signed Patient: Love Martinez MR#: [id number] 4 : 1940 Acct:[id number] Age/Sex: 83 / F ADM Date: 02/21/24 Loc: Room: [address] [place] [address] Type: ADM IN Attending Dr: Navi Torres [...] ABSCESS. Impression dictated by: Gaudencio Moreno Jr., D.OScarlet02/22/2024 8:14 AM Dictation Location: [place] [address] Transcribed By: [facility] 02/22/24 0814 Dictated By: Gaudencio Moreno Jr, DO 02/22/24 0811 Signed By: 02/22/24 0814 Normal [facility] Complete Blood Count Auto Di ffon 02-22-2024 Basophils (Bld) [#/Vol] 0.0 10*3/uL Normal 0.0-0.2 [facility] Comment on above: Result Comment: PERF ORMED BY: [address] [address] PATHOLOGIST SALES REPRESENTATIVE TRAINEE KAYLIE CHICAS M.D. Performed By: #### G LULS #### Point of Care testing , Basophils/100 WBC (Bld) 0.6 % Normal . [facility] Comment on above: Performed By: #### G LULS #### Point of Care testing , Eosinophils (Bld) [#/Vol] 0.3 10*3/uL Normal 0.0-0.45 [facility] Comment on above: Performed By: #### G LULS #### Point of Care testing , Eosinophils/100 WBC (Bld) 5.2 % Normal . [facility] Comment on above: Performed By: #### G LULS #### Point of Care testing , Erythrocyte distribution width (RBC) [Ratio] 15.1 % Normal 11.9-15.3 [facility] Comment on above: Performed By: #### G LULS #### Point of Care testing , Hematocrit (Bld) [Volume fraction] 31.7 % Low 34.0-46.4 [facility] Comment on above: Performed By: #### G LULS #### Point of Care testing , Hemoglobin (Bld) [Mass/Vol] 10.6 g/dL Low 11.8-15.4 [facility] Comment on above: Performed By: #### G LULS #### Point of Care testing , Lymphocytes (Bld) [#/Vol] 1.0 10*3/uL Normal 1.00-4.8 [facility] Comment on above: Performed By: #### G LULS #### Point of Care testing , Lymphocytes/100 WBC (Bld) 15.6 % Normal . [facility] Comment on above: Performed By: #### G LULS #### Point of Care testing , MCH (RBC) [Entitic mass] 29.5 pg Normal 24.7-34.3 [facility] Comment on above: Performed By: #### G LULS #### Point of Care testing , MCV (RBC) [Entitic vol] 88.5 fL Normal 80-100 T [facility] Comment on above: Performed By: #### G LULS #### Point of Care testing , Mean Corpuscular HGB Conc 33.4 g/dL Normal 32.0-35.0 [facility] Comment on above: Performed By: #### G LULS #### Point of Care testing , Monocytes (Bld) [#/Vol] 0.6 10*3/uL Normal 0.0-0.8 [facility] Comment on above: Performed By: #### G LULS #### Point of Care testing , Monocytes/100 WBC (Bld) 9.8 % Normal . T [facility] Comment on above: Performed By: #### G LULS #### Point of Care testing , Neutrophils (Bld) [#/Vol] 4.5 10*3/uL Normal 1.8-7.7 [facility] Comment on above: Performed By: #### G LULS #### Point of Care testing , Neutrophils/100 WBC (Bld) 68.8 % Normal . [facility] Comment on above: Performed By: #### G LULS #### Point of Care testing , NRBC% 0.0 /100{WBC} Normal 0-0.5 [facility] Comment on above: Performed By: #### G LULS #### Point of Care testing , Platelet mean volume (Bld) [Entitic vol] 8.5 fL Normal 6.3-10.7 [facility] Comment on above: Performed By: #### G LULS #### Point of Care testing , Platelets (Bld) [#/Vol] 212 10*3/uL Normal 150-450 [facility] Comment on above: Performed By: #### G LULS #### Point of Care testing , RBC (Bld) [#/Vol] 3.58 10*6/uL Low 3.60-5.00 [facility] Comment on above: Performed By: #### G LULS #### Point of Care testing , WBC (Bld) [#/Vol] 6.5 10*3/uL Normal 3.8-11.6 [facility] Comment on above: Performed By: #### G LULS #### Point of Care testing , Comprehensive Metabolic Pane leander 02-22-2024 Albumin [Mass/Vol] 3.3 g/dL Low 3.5-5.7 [facility] Comment on above: Performed By: #### P HOS, MG, BNP #### [address] Albumin/Globulin [Mass ratio] 1.2 {ratio} Normal [facility] Comment on above: Performed By: #### P HOS, MG, BNP #### [address] ALP [Catalytic activity/Vol] 66 U/L Normal 34-104 [facility] Comment on above: Performed By: #### P HOS, MG, BNP #### [facility] [address] ALT [Catalytic activity/Vol] 17 U/L Normal 7-52 [facility] Comment on above: Performed By: #### P HOS, MG, BNP #### [address] Anion gap [Moles/Vol] 9.4 mmol/L Normal 6.0-15.0 [facility] Comment on above: Performed By: #### P HOS, MG, BNP #### [address] AST [Catalytic activity/Vol] 33 U/L Normal 13-39 [facility] Comment on above: Performed By: #### P HOS, MG, BNP #### [address] Bilirubin [Mass/Vol] 0.6 mg/dL Normal 0.3-1.0 [facility] Comment on above: Performed By: #### P HOS, MG, BNP #### [address] Calcium [Mass/Vol] 8.4 mg/dL Low 8.6-10.3 [facility] Comment on above: Performed By: #### P HOS, MG, BNP #### [facility] [address] [place] [address] [place] Chloride [Moles/Vol] 105 mmol/L Normal 98-107 [facility] Comment on above: Performed By: #### P HOS, MG, BNP #### [facility] [address] [place] [address] [place] CO2 [Moles/Vol] 29.3 mmol/L Normal 21.0-31.0 [facility] Comment on above: Performed By: #### P HOS, MG, BNP #### [address] Creatinine [Mass/Vol] 0.53 mg/dL Low 0.60-1.20 [facility] Comment on above: Performed By: #### P HOS, MG, BNP #### [address] Creatinine Clr Calc Pharmacy 61.63 Normal [facility] Comment on above: Result Comment: PERF ORMED BY: [place] [address] PATHOLOGIST SALES REPRESENTATIVE TRAINEE KAYLIE CHICAS M.D. Performed By: #### P HOS, MG, BNP #### [place] [address] [place] GFR/1.73 sq M.predicted MDRD (S/P/Bld) [Vol rate/Area] mL/min/{1.73_m2} Normal [facility] Comment on above: Performed By: #### P HOS, MG, BNP #### [address] Globulin (S) [Mass/Vol] 2.8 g/dL Normal T he [facility] Comment on above: Performed By: #### P HOS, MG, BNP #### [address] Glucose [Mass/Vol] 161 mg/dL High 70-100 [facility] Comment on above: Result Comment: [place] Glucose Reference Range is dependent on time and content of last meal. Glucose of more than 200 mg/dL in a nonstressed, ambulatory subject supports the diagnosis of Diabetes Mellitus. ADA recommended reference range Performed By: #### P HOS, MG, BNP #### [address] Potassium [Moles/Vol] 3.7 mmol/L Normal 3.5-5.1 [facility] Comment on above: Performed By: #### P HOS, MG, BNP #### [address] Protein [Mass/Vol] 6.1 g/dL Low 6.4-8.9 [facility] Comment on above: Performed By: #### P HOS, MG, BNP #### [address] Sodium [Moles/Vol] 140 mmol/L Normal 136-145 [facility] Comment on above: Performed By: #### P HOS, MG, BNP #### [address] Urea nitrogen [Mass/Vol] 25 mg/dL Normal 7-25 [facility] Comment on above: Performed By: #### P HOS, MG, BNP #### [address] Creatine Kinaseon 02-22-2024 CK [Catalytic activity/Vol] 464 U/L High 30-223 [facility] Comment on above: Result Comment: PERF ORMED BY: [place] [address] PATHOLOGIST SALES REPRESENTATIVE TRAINEE KAYLIE CHICAS M.D. Performed By: #### P HOS, MG, BNP #### [address] ECH echo transthoracicon ECH echo transthoracic [facility] Main [place] [address] [place] [address] Echocardiogram Signed Patient: Love Martinez MR#: [id number] 4 : 1940 Acct:[id number] Age/Sex: 83 / F ADM Date: 02/21/24 Loc: Room: [address] [place] [address] Type: ADM IN Attending Dr: Navi Torres MD Ordering Provider: Ana Lilia May MD Date of Service: 02/21/24 ECH/ECH echo transthoracic: Elevated troponin Copies to: Hitesh Correia MD, [facility] Ana Lilia May MD Weight: 178 lb [...] MONIQUE Performed At: 02/22/24 1158 Signed By: Hitesh Correia MD, [facility] 02/22/24 1946 Normal [facility] Glucose Poct Glucometerson 0 02-22-2024 Commemt1 Glu2: Cleaned Meter Normal [facility] Comment on above: Result Comment: PERF ORMED BY: [place] [address] PATHOLOGIST SALES REPRESENTATIVE TRAINEE KAYLIE CHICAS M.D. Performed By: #### G LULS #### Point of Care testing , Glucose [Mass/Vol] 233 mg/dL Normal [facility] Comment on above: Result Comment: [place] [facility] Glucose Reference Range is dependent on time and content of last meal. Glucose of more than 200 mg/dL in a nonstressed, ambulatory subject supports the diagnosis of Diabetes Mellitus. Performed By: #### G LULS #### Point of Care testing , Glucose [Mass/Vol] 160 mg/dL Normal [facility] Comment on above: Result Comment: [place] [facility] Glucose Reference Range is dependent on time and content of last meal. Glucose of more than 200 mg/dL in a nonstressed, ambulatory subject supports the diagnosis of Diabetes Mellitus. PERFORMED BY: [place] [address] PATHOLOGIST SALES REPRESENTATIVE TRAINEE KAYLIE CHICAS M.D. Performed By: #### G LULS #### Point of Care testing , Commemt1 Glu2: Cleaned Meter Normal [facility] Comment on above: Result Comment: PERF ORMED BY: [place] [address] PATHOLOGIST SALES REPRESENTATIVE TRAINEE KAYLIE CHICAS M.D. Performed By: #### P HOS, MG, BNP #### [address] Glucose [Mass/Vol] 158 mg/dL Normal [facility] Comment on above: Result Comment: [place] [facility] Glucose Reference Range is dependent on time and content of last meal. Glucose of more than 200 mg/dL in a nonstressed, ambulatory subject supports the diagnosis of Diabetes Mellitus. Performed By: #### P HOS, MG, BNP #### [address] Glucose [Mass/Vol] 171 mg/dL Normal [facility] Comment on above: Result Comment: [place] [facility] Glucose Reference Range is dependent on time and content of last meal. Glucose of more than 200 mg/dL in a nonstressed, ambulatory subject supports the diagnosis of Diabetes Mellitus. PERFORMED BY: [place] [address] PATHOLOGIST SALES REPRESENTATIVE TRAINEE KAYLIE CHICAS M.D. Performed By: #### G LULS #### Point of Care testing , Aerobic cultureOrdered By: Cleopatra Torres on 02-21-2024 Bacteria identified Aer cx Nom (Unsp spec) 2 Days [facility] Cholesterol [Mass/volume] in Serum or PlasmaOrdered By: Cash Abreu on 02-21-2024 Cholesterol [Mass/Vol] 138 mg/dL Low 140-200 [facility] Comment on above: Chol less than [...] Cholesterol in LDL [Mass/Vol] 73 mg/dL 0-100 [facility] Comment on above: LDL ATP III CLASSIFI CATIONLDL less than 100 mg/dL OptimalLDL 100-129 mg/dL Near or above optimalLDL 130-159 mg/dL Borderline highLDL 160-189 mg/dL HighLDL greater than 189 mg/dL Very high Cholesterol in VLDL Calc [Ma ss/Vol]Ordered By: Cash Abreu on 02-21-2024 Cholesterol in VLDL [Mass/Vol] 19 mg/dL [facility] Complete Blood Count Auto Di ffon 02-21-2024 Basophils (Bld) [#/Vol] 0.0 10*3/uL Normal 0.0-0.2 [facility] Comment on above: Result Comment: PERF ORMED BY: [facility] [place] [address] PATHOLOGIST SALES REPRESENTATIVE TRAINEE KAYLIE CHICAS M.D. Performed By: #### G LULS #### Point of Care testing , Basophils/100 WBC (Bld) 0.4 % Normal . T [facility] Comment on above: Performed By: #### G LULS #### Point of Care testing , Eosinophils (Bld) [#/Vol] 0.3 10*3/uL Normal 0.0-0.45 [facility] Comment on above: Performed By: #### G LULS #### Point of Care testing , Eosinophils/100 WBC (Bld) 2.6 % Normal . [facility] Comment on above: Performed By: #### G LULS #### Point of Care testing , Erythrocyte distribution width (RBC) [Ratio] 15.0 % Normal 11.9-15.3 [facility] Comment on above: Performed By: #### G LULS #### Point of Care testing , Hematocrit (Bld) [Volume fraction] 32.0 % Low 34.0-46.4 [facility] Comment on above: Performed By: #### G LULS #### Point of Care testing , Hemoglobin (Bld) [Mass/Vol] 10.8 g/dL Low 11.8-15.4 [facility] Comment on above: Performed By: #### G LULS #### Point of Care testing , Lymphocytes (Bld) [#/Vol] 1.1 10*3/uL Normal 1.00-4.8 [facility] Comment on above: Performed By: #### G LULS #### Point of Care testing , Lymphocytes/100 WBC (Bld) 11.0 % Normal . [facility] Comment on above: Performed By: #### G LULS #### Point of Care testing , MCH (RBC) [Entitic mass] 29.7 pg Normal 24.7-34.3 [facility] Comment on above: Performed By: #### G LULS #### Point of Care testing , MCV (RBC) [Entitic vol] 88.1 fL Normal 80-100 [facility] Comment on above: Performed By: #### G LULS #### Point of Care testing , Mean Corpuscular HGB Conc 33.8 g/dL Normal 32.0-35.0 [facility] Comment on above: Performed By: #### G LULS #### Point of Care testing , Monocytes (Bld) [#/Vol] 0.9 10*3/uL High 0.0-0.8 [facility] Comment on above: Performed By: #### G LULS #### Point of Care testing , Monocytes/100 WBC (Bld) 9.1 % Normal . [facility] Comment on above: Performed By: #### G LULS #### Point of Care testing , Neutrophils (Bld) [#/Vol] 7.7 10*3/uL Normal 1.8-7.7 [facility] Comment on above: Performed By: #### G LULS #### Point of Care testing , Neutrophils/100 WBC (Bld) 76.9 % Normal . [facility] Comment on above: Performed By: #### G LULS #### Point of Care testing , NRBC% 0.2 /100{WBC} Normal 0-0.5 [facility] Comment on above: Performed By: #### G LULS #### Point of Care testing , Platelet mean volume (Bld) [Entitic vol] 8.6 fL Normal 6.3-10.7 [facility] Comment on above: Performed By: #### G LULS #### Point of Care testing , Platelets (Bld) [#/Vol] 235 10*3/uL Normal 150-450 [facility] Comment on above: Performed By: #### G LULS #### Point of Care testing , RBC (Bld) [#/Vol] 3.63 10*6/uL Normal 3.60-5.00 [facility] Comment on above: Performed By: #### G LULS #### Point of Care testing , WBC (Bld) [#/Vol] 10.1 10*3/uL Normal 3.8-11.6 [facility] Comment on above: Performed By: #### G LULS #### Point of Care testing , Comprehensive Metabolic Pane leander 02-21-2024 Albumin [Mass/Vol] 3.5 g/dL Normal 3.5-5.7 [facility] Comment on above: Order Comment: FASTI NG N Performed By: #### G LULS #### Point of Care testing , Albumin/Globulin [Mass ratio] 1.2 {ratio} Normal [facility] Comment on above: Order Comment: FASTI NG N Performed By: #### G LULS #### Point of Care testing , ALP [Catalytic activity/Vol] 69 U/L Normal 34-104 [facility] Comment on above: Order Comment: FASTI NG N Performed By: #### G LULS #### Point of Care testing , ALT [Catalytic activity/Vol] 18 U/L Normal 7-52 [facility] Comment on above: Order Comment: FASTI NG N Performed By: #### G LULS #### Point of Care testing , Anion gap [Moles/Vol] 10.4 mmol/L Normal 6.0-15.0 [facility] Comment on above: Order Comment: FASTI NG N Performed By: #### G LULS #### Point of Care testing , AST [Catalytic activity/Vol] 48 U/L High 13-39 [facility] Comment on above: Order Comment: FASTI NG N Performed By: #### G LULS #### Point of Care testing , Bilirubin [Mass/Vol] 0.8 mg/dL Normal 0.3-1.0 [facility] Comment on above: Order Comment: FASTI NG N Performed By: #### G LULS #### Point of Care testing , Calcium [Mass/Vol] 8.8 mg/dL Normal 8.6-10.3 [facility] Comment on above: Order Comment: FASTI NG N Performed By: #### G LULS #### Point of Care testing , Chloride [Moles/Vol] 104 mmol/L Normal 98-107 [facility] Comment on above: Order Comment: FASTI NG N Performed By: #### G LULS #### Point of Care testing , CO2 [Moles/Vol] 28.3 mmol/L Normal 21.0-31.0 [facility] Comment on above: Order Comment: FASTI NG N Performed By: #### G LULS #### Point of Care testing , Creatinine [Mass/Vol] 0.66 mg/dL Normal 0.60-1.20 [facility] Comment on above: Order Comment: FASTI NG N Performed By: #### G LULS #### Point of Care testing , Creatinine Clr Calc Pharmacy 61.32 Normal [facility] Comment on above: Order Comment: FASTI NG N Performed By: #### G LULS #### Point of Care testing , GFR/1.73 sq M.predicted MDRD (S/P/Bld) [Vol rate/Area] mL/min/{1.73_m2} Normal [facility] Comment on above: Order Comment: FASTI NG N Performed By: #### G LULS #### Point of Care testing , Globulin (S) [Mass/Vol] 2.9 g/dL Normal [facility] Comment on above: Order Comment: FASTI NG N Performed By: #### G LULS #### Point of Care testing , Glucose [Mass/Vol] 155 mg/dL High 70-100 [facility] Comment on above: Order Comment: FASTI NG N Result Comment: [place] Glucose Reference Range is dependent on time and content of last meal. Glucose of more than 200 mg/dL in a nonstressed, ambulatory subject supports the diagnosis of Diabetes Mellitus. ADA recommended reference range Performed By: #### G LULS #### Point of Care testing , Potassium [Moles/Vol] 3.7 mmol/L Normal 3.5-5.1 [facility] Comment on above: Order Comment: FASTI NG N Performed By: #### G LULS #### Point of Care testing , Protein [Mass/Vol] 6.4 g/dL Normal 6.4-8.9 [facility] Comment on above: Order Comment: FASTI NG N Performed By: #### G LULS #### Point of Care testing , Sodium [Moles/Vol] 139 mmol/L Normal 136-145 [facility] Comment on above: Order Comment: FASTI NG N Performed By: #### G LULS #### Point of Care testing , Urea nitrogen [Mass/Vol] 30 mg/dL High 7-25 [facility] Comment on above: Order Comment: FASTI NG N Performed By: #### G LULS #### Point of Care testing , ECG 12 lead ECGon 02-21-2024 ECG 12 lead ECG [facility] [address] Electrocardiograph Report Signed Patient: Love Martinez MR#: [id number] 4 : 1940 Acct:[id number] Age/Sex: 83 / F ADM Date: 02/20/24 Loc: Room: [address] [place] [address] Type: ADM INOo Attending Dr: Navi Torres [...] previous ECGs available Confirmed by [facility]STR[id number] on 02/21/2024 1:27:39 PM Referred By: Electronically Signed By:HITESH CORREIA MD [facility] Transcribed By: MUS Signed By Hitesh Correia MD, FACC 02/21/24 1327 Normal [facility] Glucose Poct Glucometerson 0 02-21-2024 Glucose [Mass/Vol] 200 mg/dL Normal [facility] Comment on above: Result Comment: [place] Glucose Reference Range is dependent on time and content of last meal. Glucose of more than 200 mg/dL in a nonstressed, ambulatory subject supports the diagnosis of Diabetes Mellitus. PERFORMED BY: [place] [address] PATHOLOGIST SALES REPRESENTATIVE TRAINEE KAYLIE CHICAS M.D. Performed By: #### G LULS #### Point of Care testing , Glucose [Mass/Vol] 191 mg/dL Normal [facility] Comment on above: Result Comment: [facility] Glucose Reference Range is dependent on time and content of last meal. Glucose of more than 200 mg/dL in a nonstressed, ambulatory subject supports the diagnosis of Diabetes Mellitus. PERFORMED BY: [place] [address] PATHOLOGIST SALES REPRESENTATIVE TRAINEE KAYLIE CHICAS M.D. Performed By: #### P HOS, MG, BNP #### [address] Glucose [Mass/Vol] 226 mg/dL Normal [facility] Comment on above: Result Comment: [place] Glucose Reference Range is dependent on time and content of last meal. Glucose of more than 200 mg/dL in a nonstressed, ambulatory subject supports the diagnosis of Diabetes Mellitus. PERFORMED BY: [place] [id number] PATHOLOGIST SALES REPRESENTATIVE TRAINEE KAYLIE CHICAS M.D. Performed By: #### G LULS #### Point of Care testing , Glucose [Mass/Vol] 122 mg/dL Normal [facility] Comment on above: Result Comment: [facility] Glucose Reference Range is dependent on time and content of last meal. Glucose of more than 200 mg/dL in a nonstressed, ambulatory subject supports the diagnosis of Diabetes Mellitus. PERFORMED BY: [place] [id number] PATHOLOGIST SALES REPRESENTATIVE TRAINEE KAYLIE CHICAS M.D. Performed By: #### G LULS #### Point of Care testing , Lipid Panelon 02-21-2024 LDL Cholesterol,Calculated 73 mg/dL Normal 0-100 [facility] Comment on above: [...] Triglyceride w/Reflex 98 mg/dL Normal 0-149 [facility] Comment on above: Order [...] CHOLESTEROL 19 mg/dL Normal [facility] Comment on above: Order Comment: OTTONIEL Wilson Performed By: #### G LULS #### Point of Care testing , Serum or plasma high density lipoprotein (HDL) cholesterol measurementOrdered By: Cash Abreu on 02-21-2024 Cholesterol in HDL [Mass/Vol] 45 mg/dL Normal 23-92 [facility] Comment on above: HDL CHOL ATP-III CLA [...] HDL [Mass ratio] 3.1 {ratio} Normal <5.0 [facility] Comment on above: Order Comment: FASTI NG N Result Comment: PERF ORMED BY: [place] [address] PATHOLOGIST SALES REPRESENTATIVE TRAINEE KAYLIE CHICAS M.D. Performed By: #### G LULS #### Point of Care testing , Superficial Wound Cultureon 02-21-2024 Superficial Wound Culture Light Normal Skin Teressa 2 Days PERFORMED BY: [place] [address] PATHOLOGIST SALES REPRESENTATIVE TRAINEE KAYLIE CHICAS M.D. Normal [facility] Comment on above: Performed By: #### P HOS, MG, BNP #### [facility] [address] [place], [place] [id number] [facility] Triglyceride [Mass/volume] i n Serum or PlasmaOrdered By: Cash Abreu on 02-21-2024 Triglyceride [Mass/Vol] 98 mg/dL 0-149 [facility] Comment on above: TRIG ATP III CLASSIF ICATIONTRIG less than 150 mg/dL NormalTRIG 150-199 mg/dL Borderline highTRIG 200-500 mg/dL High TRIG greater than 500 mg/dL Very highStandard traceable to the Center for Disease Conrtrol and Prevention (CDC) test method. Troponin I High Sensitivityo n 02-21-2024 Troponin I High Sensitivity 29.6 pg/mL High 0.0-15.0 [facility] Comment on above: Result Comment: PERF ORMED BY: [place] [address] PATHOLOGIST SALES REPRESENTATIVE TRAINEE KAYLIE CHICAS M.D. Performed By: #### P HOS, MG, BNP #### [facility] [address] [place] [address] Troponin I.cardiac [Mass/vol ume] in Serum or Plasma by Detection limit <= 0.01 ng/Ordered By: Cash Abreu on 02-21-2024 Troponin I.cardiac DL <= 0.01 ng/mL [Mass/Vol] 29.6 pg/mL High 0.0-15.0 [facility] BNP ser/plasOrdered By: Layton Abreu on 02-20-2024 Natriuretic peptide B (Bld) [Mass/Vol] 380.0 pg/mL High 5-100 [facility] Comment on above: Result Comment: PERF ORMED BY: [place] [address] PATHOLOGIST SALES REPRESENTATIVE TRAINEE KAYLIE CHICAS M.D. Performed By: #### P HOS, MG, BNP #### [address] Magnesium [Mass/volume] in S rose or PlasmaOrdered By: Cash Abreu on 02-20-2024 Magnesium [Mass/Vol] 1.5 mg/dL Low 1.9-2.7 [facility] Comment on above: Result Comment: PERF ORMED BY: [place] [address] PATHOLOGIST SALES REPRESENTATIVE TRAINEE KAYLIE CHICAS M.D. Performed By: #### P HOS, MG, BNP #### [address] Phosphate [Mass/volume] in S rose or PlasmaOrdered By: Cash Abreu on 02-20-2024 Phosphate [Mass/Vol] 3.1 mg/dL Normal 2.5-4.5 [facility] Comment on above: Performed By: #### P HOS, MG, BNP #### [address] Troponin I High Sensitivityo n 02-20-2024 Troponin I High Sensitivity 35.6 pg/mL High 0.0-15.0 [facility] Comment on above: Result Comment: PERF ORMED BY: [place] [address] PATHOLOGIST SALES REPRESENTATIVE TRAINEE KAYLIE CHICAS M.D. Performed By: #### H S TROP #### [facility] [address] [place] [address] CBC W Auto Differential pane l (Bld)on 10-12-2023 Basophils (Bld) [#/Vol] 62 10*3/uL N [facility] Basophils/100 WBC (Bld) 0.7 % [facility] Eosinophils (Bld) [#/Vol] 249 10*3/uL [facility] Eosinophils/100 WBC (Bld) 2.8 % [facility] Erythrocyte distribution width (RBC) [Ratio] 13.5 % 11.0 - 15.0 % [facility] Hematocrit (Bld) [Volume fraction] 38.0 % 35.0 - 45.0 % [facility] Hemoglobin (Bld) [Mass/Vol] 12.7 g/dL 11.7 - 15.5 g/dL [facility] Lymphocytes (Bld) [#/Vol] 1264 10*3/uL [facility] Lymphocytes/100 WBC (Bld) 14.2 % [facility] MCH (RBC) [Entitic mass] 29.7 pg 27. 0 - 33.0 pg [facility] MCHC (RBC) [Mass/Vol] 33.4 g/dL 32.0 - 36.0 g/dL [facility] MCV (RBC) [Entitic vol] 89.0 fL 80.0 - 100.0 fL [facility] Monocytes (Bld) [#/Vol] 676 10*3/uL [facility] Monocytes/100 WBC (Bld) 7.6 % [facility] Neutrophils (Bld) [#/Vol] 6648 10*3/uL [facility] Neutrophils/100 WBC (Bld) 74.7 % [facility] Platelet mean volume (Bld) [Entitic vol] 11.0 fL 7.5 - 12.5 fL [facility] Platelets (Bld) [#/Vol] 283 10*3/uL [facility] RBC (Bld) [#/Vol] 4.27 10*6/uL [facility] WBC (Bld) [#/Vol] 8.9 10*3/uL [facility] Laboratory - Chemistry and C hemistry - challengeon 10-12-2023 25-hydroxyvitamin D3 [Mass/Vol] 49 ng/mL 30 - 100 ng/mL [facility] Comment on above: Vitamin D Status 25- [place] Vitamin D: Deficiency: <20 ng/mL Insufficiency: 20 - 29 ng/mL Optimal: > or = 30 ng/mL For 25-OH Vitamin D testing on patients on D2-supplementation and patients for whom quantitation of D2 and D3 fractions is required, the [facility]() 25-OH VIT D, (D2,D3), LC/MS/MS is recommended: order code 02074 (patients >2yrs). See Note 1 Note 1 For additional information, please refer to http://education.[employer].Nantero/faq/XCN058 (This link is being provided for informational/ educational purposes only.) Albumin [Mass/Vol] 4.1 g/dL 3.6 - 5.1 g/dL [facility] Albumin/Globulin [Mass ratio] 1.4 {ratio} [facility] ALP [Catalytic activity/Vol] 76 U/L 37 - 153 U/L [facility] ALT [Catalytic activity/Vol] 11 U/L 6 - 29 U/L [facility] AST [Catalytic activity/Vol] 17 U/L 10 - 35 U/L [facility] Bilirubin [Mass/Vol] 0.8 mg/dL 0.2 - 1 .2 mg/dL [facility] Calcium [Mass/Vol] 9.6 mg/dL 8.6 - 10. 4 mg/dL [facility] Chloride [Moles/Vol] 98 mmol/L 98 - 11 0 mmol/L [facility] CO2 [Moles/Vol] 30 mmol/L 20 - 32 mmol/L [facility] Creatinine [Mass/Vol] 0.55 mg/dL Low 0.60 - 0.95 mg/dL [facility] GFR/1.73 sq M.predicted among non-blacks MDRD (S/P/Bld) [Vol rate/Area] 91 mL/min/{1.73_m2} > OR = 60 mL/min/1.73m 2 [facility] Globulin (S) [Mass/Vol] 3.0 g/dL N [facility] Glucose [Mass/Vol] 130 mg/dL High 65 - 99 mg/dL [facility] Comment on above: Fasting reference interval For someone without known diabetes, a glucose value >125 mg/dL indicates that they may have diabetes and this should be confirmed with a follow-up test. Potassium [Moles/Vol] 3.6 mmol/L 3.5 - 5.3 mmol/L [facility] Protein [Mass/Vol] 7.1 g/dL 6.1 - 8.1 g/dL [facility] Sodium [Moles/Vol] 139 mmol/L 135 - 146 mmol/L [facility] TSH Qn 2.19 m[IU]/L [facility] Urea nitrogen [Mass/Vol] 20 mg/dL 7 - 25 mg/d L [facility] Urea nitrogen/Creatinine [Mass ratio] 36 mg/mg High [facility] Laboratory - Hematology and Cell countson 10-12-2023 HbA1c (Bld) [Mass fraction] 6.6 % High [facility] Comment on above: For someone without known [...] of diabetes for children. HbA1c performed on [employer] platform. Effective 08/22/23 a change in test platforms may have shifted HbA1c results compared to historical results. Lipid 1996 panelon Cholesterol [Mass/Vol] 172 mg/dL [facility] - 200 mg/dL [facility] Cholesterol in HDL [Mass/Vol] 58 mg/dL > OR = 50 [facility] Cholesterol in LDL [Mass/Vol] 91 mg/dL mg/dL (calc) [facility] Comment on above: Reference range: <10 0 Desirable range <100 mg/dL for primary prevention; <70 mg/dL for patients with CHD or diabetic patients with > or = 2 CHD risk factors. LDL-C is now calculated using the Alejandro-Lotus calculation, which is a validated novel method providing better accuracy than the Friedewald equation in the estimation of LDL-C. Alejandro SS et al. JALEEL. 2013;310(19): 6222-1085 (http://education.[employer].Nantero/faq/AHX473) Cholesterol non HDL [Mass/Vol] 114 mg/dL [facility] Comment on above: For patients with di abetes plus 1 major ASCVD risk factor, treating to a non-HDL-C goal of <100 mg/dL (LDL-C of <70 mg/dL) is considered a therapeutic option. Cholesterol.total/Choles terol in HDL [Mass ratio] 3.0 {ratio} [facility] Triglyceride [Mass/Vol] 124 mg/dL [facility] - 150 mg/dL [facility] No Panel Informationon 10-12 Interpretation and review of laboratory results Abnormal [facility] Shareholder [employer] COLLECTION KIT GIVEN TO PATIENT. PATIENT ADVISED TO RETURN. [employer] Organization Information Site ID: QPT Name: [facility] Address: Jay Fermin , [address] [place] [id number] Director: Erik Garcia MD [facility] Shareholder [employer] [facility] SCREENING MAMMOGRAM W/CARLOS, BILATERAL*on 06-08-2022 SCREENING MAMMOGRAM [...] VERY IMPORTANT TO YOUR HEALTH. THE CURRENT [place] [employer] AND [employer] COMPREHENS[employer]WORK GUIDELINES RECOMMENDS ANNUAL MAMMOGRAPHY BEGINNING AT AGE 40 THIS FACILITY USES A REMINDER SYSTEM TO ENSURE ALL PATIENTS RECEIVE REMINDER NOTIFICATIONS AT THE APPROPRIATE TIME BASED ON THE RECOMMENDATIONS OF THIS EXAM. Report reported and signed by Gaudencio Llamas on 06/08/2022 1132 Normal [facility] Clerical Manager CNOVSPon 05-21-2021 CNOVSP Visit (SP) Office ([place]) LOVE MARTINEZ ([id number]) 1940 F Date Time Provider Department 05/21/21 11:30 AM JULIO LAMBERT During your visit today, we recorded the following information about you: Temperature Pulse Respiration Blood pressure 97.5 degrees 78/minute 16/minute 155/99 Weight Height 92.1 kg 1.708 m Julio Lambert MD 05/25/2021 9:59 AM Signed NAME: Love Martinez NO.: [id number] DATE OF SERVICE: May 21, 2021 Some elements in this clinic note that are critical to medical decision making have been carefully reviewed and included from a prior clinic note dated: May 22, 2020 Additional Clinicians involved in Love Martinez's care: Nancy Hannah, Chalo Kidd MD ([facility]) CC: breast cancer follow up. ASSESSMENT: 80 year old post-menopausal female diagnosed with a left sided [id number], stage I breast cancer (0.7 cm, T1b, overall grade 2 with associated DCIS, ER 100%, DC 100%, HER-2 negative) treated with lumpectomy and [...] grade 2 with associated DCIS. ER 100%, DC 100%, HER-2 negative score 0. Had been [...] tablet apixa (more content not included)... Normal [facility] Vital Signs Date Time Vital Sign Value Performing Clinician Facility 10-07-2024 13:17-0500 Body height 175.3 cm Tisha Cho DPM Work Phone: [facility] 10-07-2024 13:17-0500 Body mass index (BMI) [Ratio] 26.29 kg/m2 Tisha Cho DPM Work Phone: [facility] 10-07-2024 13:17-0500 Body weight 80.74 kg Tisha Cho DPM Work Phone: [facility] 06-24-2024 13:50-0400 Body height 175.3 cm Tisha Cho DPM Work Phone: [facility] 06-24-2024 13:50-0400 Body mass index (BMI) [Ratio] 26.29 kg/m2 Tisha Cho DPM Work Phone: [facility] 06-24-2024 13:50-0400 Body weight 80.74 kg Tisha Cho DPM Work Phone: [facility] 03-02-2024 17:00-0400 Body temperature 97.7 [degF] DIRECTOR OF STRATEGIC SOURCING-C Anita Kampfer Work Phone: [facility] 03-02-2024 17:00-0400 Diastolic blood pressure 75 mm[Hg] DIRECTOR OF STRATEGIC SOURCING-C Anita Kampfer Work Phone: [facility] 03-02-2024 17:00-0400 Heart rate 80 /min DIRECTOR OF STRATEGIC SOURCING-C Anita Kampfer Work Phone: [facility] 03-02-2024 17:00-0400 Respiratory rate 16 /min DIRECTOR OF STRATEGIC SOURCING-C Anita Kampfer Work Phone: [facility] 03-02-2024 17:00-0400 SaO2% (BldA) [Mass fraction] 99 % DIRECTOR OF STRATEGIC SOURCING-C Anita Kampfer Work Phone: [facility] 03-02-2024 17:00-0400 Systolic blood pressure 119 mm[Hg] DIRECTOR OF STRATEGIC SOURCING-C Anita Kampfer Work Phone: [facility] 03-02-2024 06:00-0400 Body weight 79.2 kg DIRECTOR OF STRATEGIC SOURCING-C Anita Isabel Work Phone: [facility] 02-28-2024 12:30-0400 Body height 175.26 cm DIRECTOR OF STRATEGIC SOURCING-C Anita Isabel Work Phone: [facility] 10-11-2023 14:01-0500 Body height 175.3 cm Anita Isabel DIRECTOR OF STRATEGIC SOURCING Work Phone: [facility] 10-11-2023 14:01-0500 Body mass index (BMI) [Ratio] 26.29 kg/m2 Anita Isabel DIRECTOR OF STRATEGIC SOURCING Work Phone: [facility] 10-11-2023 14:01-0500 Body weight 80.74 kg Anita Isabel DIRECTOR OF STRATEGIC SOURCING Work Phone: [facility] 10-11-2023 14:01-0500 Diastolic blood pressure 84 mm[Hg] Anita Isabel DIRECTOR OF STRATEGIC SOURCING Work Phone: [facility] 10-11-2023 14:01-0500 Heart rate 79 /min Anita Isabel DIRECTOR OF STRATEGIC SOURCING Work Phone: [facility] 10-11-2023 14:01-0500 SaO2% (BldA) [Mass fraction] 95 % Anita Isabel DIRECTOR OF STRATEGIC SOURCING Work Phone: [facility] 10-11-2023 14:01-0500 Systolic blood pressure 120 mm[Hg] Anita Isabel DIRECTOR OF STRATEGIC SOURCING Work Phone: [facility] Encounters Encounter Date Encounter Type Care Provider Facility Start: 10-07-2024 End: 10-07-2024 Bamboo flowsheet Tisha Cho DPM Work Phone: [facility] Start: 10-07-2024 End: 10-07-2024 Bamboo flowsheet Tisha Cho DPM Work Phone: [facility] Start: 10-07-2024 End: 10-07-2024 Patient encounter procedure Tisha Cho DPM Work Phone: [facility] Comment on above: Dermatophytosis of n ail (Primary Dx); Dystrophic nail; Pain around toenail, right foot; Pain around toenail, left foot Start: 10-07-2024 End: 10-07-2024 ambulatory TISHA CHO Not Available Start: 07-02-2024 End: 07-02-2024 Telephone encounter Iliana Nava MD Work Phone: [facility] Start: 06-24-2024 End: 06-24-2024 Bamboo flowsheet Tisha Cho DPM Work Phone: [facility] Start: 06-24-2024 End: 06-24-2024 Bamboo flowsheet Tisha Cho DPM Work Phone: [facility] Start: 06-24-2024 End: 06-24-2024 ambulatory TISHA CHO Not Available Start: 06-24-2024 End: 06-24-2024 Office outpatient new 30 minutes Tisha Cho DPM Work Phone: [facility] Comment on above: Dermatophytosis of n ail (Primary Dx); Dystrophic nail; Pain around toenail, right foot; Pain around toenail, left foot Start: 02-21-2024 Non-patient / Non-visit DIRECTOR OF STRATEGIC SOURCING-C Phyllis Isabel Work Phone: [facility] Work Phone: Start: 02-21-2024 End: 03-02-2024 Evaluation and management of inpatient DIRECTOR OF STRATEGIC SOURCING-C Anita Isabel Work Phone: [facility] Work Phone: Start: 10-11-2023 End: 10-11-2023 Patient encounter procedure Anita Isabel DIRECTOR OF STRATEGIC SOURCING Work Phone: [facility] Comment on above: Encounter for wellne ss examination (Primary Dx); Primary hypertension (CMS/HCC); Acquired hypothyroidism (CMS/HCC); Mixed hyperlipidemia ([facility]); Type 2 diabetes mellitus with hyperglycemia, without long-term current use of insulin ([facility]); Gastroesophageal reflux disease, unspecified whether esophagitis present; Age-related osteoporosis without current pathological fracture ([facility]); Anemia, unspecified type; Difficulty initiating walking; Osteopenia determined by x-ray; H/O: hysterectomy; Anxiety; Primary osteoarthritis of both hips; Persistent atrial fibrillation (HCC) ([facility]); Malignant neoplasm of left female breast, unspecified estrogen receptor status, unspecified site of breast ([facility]); Unsteady gait when walking; Grief ([facility]); Cervical cancer screening declined; Colon cancer screening declined; Osteoporosis screening declined Start: 10-11-2023 End: 10-11-2023 Patient encounter status Anita Isabel DIRECTOR OF STRATEGIC SOURCING Work Phone: [facility] Work Phone: Start: 10-11-2023 End: 10-11-2023 ambulatory ANITA ISABEL Not Available Start: 04-21-2019 End: 04-21-2019 Patient encounter procedure [facility] Facility: Procedures Date Procedure Procedure Detail Performing Clinician Start: 02-21-2024 CT of pelvis with contrast DIRECTOR OF STRATEGIC SOURCING-C Anita Isabel Work Phone: Start: 02-21-2024 Aerobic microbial culture DIRECTOR OF STRATEGIC SOURCING-C Anita Isabel Work Phone: Start: 10-11-2023 Complete blood count with white cell differential, automated Anita Isabel DIRECTOR OF STRATEGIC SOURCING Work Phone: Start: 10-11-2023 Comprehensive metabo lic panel Anita Isabel DIRECTOR OF STRATEGIC SOURCING Work Phone: Start: 10-11-2023 Lipid panel Anita ramos DIRECTOR OF STRATEGIC SOURCING Work Phone: Start: 10-11-2023 TSH W/REFLEX TO FT4 Claudio Isabel DIRECTOR OF STRATEGIC SOURCING Work Phone: Start: 10-11-2023 H/O: hysterectomy H/O: hysterectomy Anita Isabel DIRECTOR OF STRATEGIC SOURCING Work Phone: Plan of Treatment Date Care Activity Detail Author Start: 01-14-2025 End: 01-14-2025 Patient encounter procedure 01/14/2025 1:30 PM EDT Procedure Visit [facility] [address] [place] [phone] Tisha Cho DPM [address] [place] [address] [facility] Start: 10-16-2024 Urine screening for protein Diabetes: Urine Protein Screening [facility] Start: 10-11-2024 Medicare Annual Wellness (AWV) Medicare Annual Wellness (AWV) [facility] Start: 10-07-2024 End: 10-07-2024 Patient encounter procedure [facility] Comment on above: Arrived Start: 05-05-2024 Influenza vaccination Influenza Vacc ine (#1) [facility] Start: 04-10-2024 End: 04-10-2024 Patient encounter procedure 04/10/2024 1:00 PM EDT Office Visit [facility] [address] [place] [phone] Anita Isabel NP [address] [place] [address] [facility] Start: 02-26-2024 [facility] Start: 02-20-2024 Hospital admission [facility] Start: 02-20-2024 [facility] Start: 01-09-2024 Hemoglobin A1c measurement Diabetes: Hemoglobin A1C [facility] Start: 10-11-2023 End: 10-11-2024 Microalbumin/Creatinine panel in random Urine Microalbumin / creatinine, urine ratio Lab Routine Encounter for wellness examination Type 2 diabetes mellitus with hyperglycemia, without long-term current use of insulin ([facility]) Expected: 10/11/2023 (Approximate), Expires: 10/11/2024 [facility] Work Phone: Comment on above: Expected: 10/11/2023 (Approximate), Expires: 10/11/2024 Start: 02-26-2021 Urine screening for protein Diabetes: Urine Protein Screening [facility] Start: 1950 Glaucoma screening Diabetes: R etinopathy Screening [facility] Patient Education Know your Meds [facility] Work Phone: Patient referral [facility] Work Phone: Immunizations Immunization Date Immunization Notes Care Provider Niraj cheng 06-27-2023 Influenza, High-dose Seasonal, Quadrivalent, Preservative Free Anita Kampfer DIRECTOR OF STRATEGIC SOURCING Work Phone: [facility] 06-27-2023 pneumococcal polysaccharide vaccine, 23 valent Anita Kampfer DIRECTOR OF STRATEGIC SOURCING Work Phone: [facility] 06-27-2023 influenza virus vacc ine, unspecified formulation Tisha Cho DPM Work Phone: [facility] 06-15-2022 Influenza, High-dose Seasonal, Quadrivalent, Preservative Free Anita Kampfer DIRECTOR OF STRATEGIC SOURCING Work Phone: [facility] 06-14-2021 Influenza, High-dose Seasonal, Quadrivalent, Preservative Free Anita Kampfer DIRECTOR OF STRATEGIC SOURCING Work Phone: [facility] 06-08-2020 influenza, high dose seasonal, preservative-free Anita Kampfer DIRECTOR OF STRATEGIC SOURCING Work Phone: [facility] 06-20-2019 influenza, high dose seasonal, preservative-free Anita Kampfer DIRECTOR OF STRATEGIC SOURCING Work Phone: [facility] 06-19-2018 Influenza, High-dose Seasonal, Quadrivalent, Preservative Free Anita Kampfer DIRECTOR OF STRATEGIC SOURCING Work Phone: [facility] 06-12-2017 Influenza, High-dose Seasonal, Quadrivalent, Preservative Free Anita Kampfer DIRECTOR OF STRATEGIC SOURCING Work Phone: [facility] 06-16-2016 Influenza, High-dose Seasonal, Quadrivalent, Preservative Free Anita Kampfer DIRECTOR OF STRATEGIC SOURCING Work Phone: [facility] 12-18-2015 pneumococcal conjuga te vaccine, 13 valent Anita Kampfer DIRECTOR OF STRATEGIC SOURCING Work Phone: [facility] 12-18-2015 pneumococcal vaccine , unspecified formulation Anita Kampfer DIRECTOR OF STRATEGIC SOURCING Work Phone: [facility] 01-06-2013 zoster vaccine, live Anita lowe DIRECTOR OF STRATEGIC SOURCING Work Phone: [facility] 09-04-2008 pneumococcal polysaccharide vaccine, 23 valent Anita Lincolnpeperichard DIRECTOR OF STRATEGIC SOURCING Work Phone: [facility] 06-25-1999 pneumococcal conjuga te vaccine, 7 valent Anita Maame DIRECTOR OF STRATEGIC SOURCING Work Phone: [facility] Payers Date Payer Category Payer Self-pay [id number] 2021 Medicaid A[employer]NA MEDICARE A DVANTAGE [id number] 2021 Medicare AETNA MEDICARE A DVANTAGE AETNA MEDICARE REPLACEMENT [id number] 2021-Present [address] [place] [address] [id number] 2021 Private Health Insurance [id number] 1958 Medicare [id number] 1940 Unknown [id number] 1941 Unknown [id number] 1941 Unknown [id number] 1941 Unknown [id number] Unknown [id number] Social History Date Type Detail Facility Start: 10-11-2023 End: 02-21-2024 Tobacco smoking status NHIS Never smoked tobacco [facility] Start: 10-11-2023 Tobacco use and exposure Smokeless tobacco non-user [facility] Start: 10-13-2023 End: 06-24-2024 Alcohol intake Lifetime non-drinker (finding) [facility] Start: 10-11-2023 End: 10-13-20[address] [facility] Start: 10-11-2023 End: 10-13-[address] [facility] Start: 10-11-2023 Alcohol Comment caffeine intak e: [address] [facility] Start: 1940 Sex Assigned At Not on file N [facility] Start: 1940 Sex Assigned At Female F [facility] Start: 10-07-2024 Alcoholic beverage intake Ex-drinker (finding) [facility] NEGATED: Highlighted row [facility] Goals Date Patient Goal Desired Activity /State Functional Status Date Assessment Result Facility 03-02-2024 Functional status Patient is Pro gressing Toward Baseline [facility] Work Phone: Mental Status Date Assessment Result Facility 03-02-2024 Cognitive function Cognitive Sta tus Patient at Baseline [facility] Work Phone: Clinical Notes 05-21-2021 to 10-07-2024 Tisha Cho, MARTY - 10/07/2024 1:30 PM ESTTelephone Encounter - Mel Arreguin - 07/02/2024 3:57 PM EDTTelephone Encounter - Mel Arreguin - 07/02/2024 3:57 PM EDTPatient Instructions Note Date & Type Note Facility 10-07-2024 History of Presen t illness Narrative Images from the original note were not included. Subjective Patient ID: Love Martinez is a 84 y.o. female who presents for DM Foot Care (Established pt presents for DM nail care. Pt currently is residing at [facility], pt sees in house doctor there, no current A1C or recent sugars. ). HPI Chief complaint: Thickened, deformed, discolored fungal toenails . Insidious onset. Gradual progressive deformity over multiple years. Problematic/symptomatic over the past several weeks or so; describing pressure discomfort with footwear; catching and snagging on clothing, bed sheets etc.. Denies bleeding or drainage. Self care measures are difficult, ineffective and not practical; increasing risk exposure. Family members unable to provide effective care. Palliative care measures provide favorable transient symptom relief. Risk factors: Type II diabetes. Medical comorbidities. Eliquis therapy. Polypharmacy. Mobility, flexibility and dexterity restraints. Toenail deformity. Digital and/or shoe trauma and related complications. Medications Current Outpatient Medications: cholecalciferol (Vitamin D-3) 50 MCG (2000 UT) [...] before bedtime., Disp: 180 tablet, Rfl: 0 atenolol (Tenormin) 50 MG tablet, Take 1 tablet (50 mg) by mouth in the morning., Disp: 90 tablet, Rfl: 3 levothyroxine (Synthroid, Levoxyl) 50 MCG tablet, Take [...] History Past Surgical History: Procedure Laterality Date BREAST SURGERY HIP FRACTURE SURGERY HYSTERECTOMY INTRAOCULAR LENS IMPLANT, SECONDARY Right 05/11/2023 INTRAOCULAR LENS IMPLANT, SECONDARY Left 06/01/2023 Family History Family History Problem Relation Name Age of Onset Arthritis Mother Britney Diabetes Mother Britney Hypertension Mother Britney Stroke Mother Britney Cancer Father Lui Diabetes Sister Minda Ramirez Stroke Sister Minda Ramirez Hypertension Sister Jacqueline Wagner Objective GENERAL ASSESSMENT: Alert and oriented. Pleasant [...] or corrected. Thank you for your understanding. Tisha Cho DPM documented in this encounter [facility] 07-02-2024 Telephone encount er Note Patient called to inform that she is at the [facility] for after hospital care. Ty [facility] 07-02-2024 Miscellaneous Notes Formattin g of this note might be different from the original. Patient called to inform that she is at the [facility] for after hospital care. Ty documented in this encounter [facility] 06-24-2024 History of Presen t illness Narrative Images from the original note were not included. Subjective Patient ID: Love Martinez is a 84 y.o. female who presents for DM Foot Care (84 yo DIRECTOR OF STRATEGIC SOURCING presents today requesting nail care, [facility] and states that they don't have anyone [...] or corrected. Thank you for your understanding. Tisha Cho DPM documented in this encounter [facility] 06-24-2024 Instructions Tisha Cho DPM - 06/24/2024 1:45 PM EDT As noted documented in this encounter [facility] 03-02-2024 Progress note Note Date/Time March 02, 2024 4:02pm [facility] [address] [place] [address] Hospitalist Progress Note Signed Patient: Love Martinez MR#: [id number] : 1940 Acct:[id number] Age/Sex: 83 / F Adm Date: 4 Loc: 3T Room: [address] [place] [address] Type: ADM IN Attending Dr: Guero Cantu MD Copies to: ~ Date of Service: 03/02/2024 Subjective Subjective Narrative: No acute events noted overnight. Patient was seen at bedside. She does not voice any complaint She got her approval for care home facility. She will be living at 5 [...] 02/24/24 21:00 03/02/24 08:36 Pantoprazole 40 Mg Tablet. PO 02/23/25 20:59 40 mg BID CORAZON Administration Phenyleph/Shark Oil/Chattaroy Butter 1 supp 02/26/24 21:00 03/02/24 08:37 Phenylephrine/Chattaroy Butter 6.25 Mg/2211 Mg 1 Supp DC 02/25/25 20:59 Not Given BID CORAZON Polyethylene [...] Patient is going to be discharged to care home facility at 5 PM today. Documented By: Guero Cantu MD 03/02/24 1601 Signed By: <Electronically signed by Guero Cantu MD> 03/02/24 1602 [facility] Work Phone: 1(312) 868-772006-28-2024 Discharge summary Author Anand Khan [facility] March 01, 2024 11:43am Note Date/Time February 26, 2024 11:3 1am [facility] [address] [place], [place] [id number] Discharge Summary Signed with Luc Patient: Love Martinez MR#: [id number] : 1940 Acct:[id number] Age/Sex: 83 / F Adm Date: 4 Loc: 3T Room: [address] [place] [address]: Anand Khan DO Copies to: Anita Isabel BRUSHING OPERATOR-SHELLFISH CHECKER Anand Khan DO~ ADDENDUM1 Insurance denied pre-CERT to SNF. Patient will be discharged home with home care. Discharge date 03/01/2024. Addendum Documented By: Anand Khan DO 03/01/24 1143 Addendum Signed By: <Electronically signed by Anand Khan DO> 03/01/24 1143 Providers Date of Discharge: 02/26/24 Discharging Provider: Anand Khan Primary Care Provider: Anita Isabel Consults: 02/20/24 22:13 Consult to Occupational [...] evaluated by PT/OT. She was discharged to care home facility. Patient did have groin cellulitis with [...] 36 Discharge Plan Discharge Plan Patient Disposition: [facility] Facility Activity: No Activity Restriction Diet: Diabetic, [...] MD [Active Staff] - 04/11/24 1:00 pm Anita Isabel NP-C [Primary Care Provider] - None [...] signed by Anand Khan DO> 02/26/24 113[address] [facility] Work Phone: 1(298) 794-205106-28-2024 Progress note Author Anand Khan [facility] March 01, 2024 11:41am Note Date/Time March 01, 2024 11:4 1am [facility] [address] [place] [address] Hospitalist Progress Note Signed Patient: Love Martinez MR#: [id number] : 1940 Acct:[id number] Age/Sex: 83 / F Adm Date: 4 Loc: 3T Room: [address] [place] [address] Type: ADM IN Attending Dr: Anand Khan [...] Insuln.Pen SUBCUT 02/22/25 11:59 Not Given TID.[facility] Protocol Latanoprost 1 drops 02/24/24 [...] 20:59 40 mg BID CORAZON Administration Phenyleph/Shark Oil/Chattaroy Butter 1 supp 02/26/24 21:00 03/01/24 08:28 Phenylephrine/Chattaroy Butter 6.25 Mg/2211 Mg 1 Supp DC 02/25/25 20:59 1 supp BID CORAZON Administration [...] signed by Anand Khan DO> 03/01/24 114[address] [facility] Work Phone: 1(499) 454-906006-27-2024 Progress note Author Anand Khan [facility] February 29, 2024 10:52am Note Date/Time February 29, 2024 10:5 2am [facility] [address] [place] [address] Hospitalist Progress Note Signed Patient: Love Martinez MR#: [id number] : 1940 Acct:[id number] Age/Sex: 83 / F Adm Date: 4 Loc: 3T Room: [address] [place] [address] Type: ADM IN Attending Dr: Anand Khan [...] 20:59 40 mg BID CORAZON Administration Phenyleph/Shark Oil/Chattaroy Butter 1 supp 02/26/24 21:00 02/29/24 08:28 Phenylephrine/Chattaroy Butter 6.25 Mg/2211 Mg 1 Supp DC 02/25/25 20:59 1 supp BID CORAZON Administration [...] submitted. Documented By: Anand Khan DO 02/29/24 105 Signed By: <Electronically signed by Anand Khan DO> 02/29/24 1052 [facility] Work Phone: 1(869) 867-481106-26-2024 Progress note Author Anand Khan [facility] February 28, 2024 11:34am Note Date/Time February 28, 2024 11:3 4am [facility] [address] [place] [address] Hospitalist Progress Note Signed Patient: Love Martinez MR#: [id number] : 1940 Acct:[id number] Age/Sex: 83 / F Adm Date: 4 Loc: 3T Room: [address] [place] [address] Type: ADM IN Attending Dr: Anand Khan DO Copies to: ~ Date of Service: 02/28/2024 Subjective Subjective Narrative: No acute events noted overnight. Exam Physical Exam Vital Signs: Temp Pulse Resp BP Pulse Ox O2 Del Method 97.5 F L 80 18 166/84 H 97 Room Air 06/26/24 08:00 02/28/24 08:00 02/28/24 08:00 02/28/24 08:00 [...] Insuln.Pen SUBCUT 02/22/25 11:59 Not Given TID.[facility] Protocol Latanoprost 1 drops 02/24/24 11:00 02/28/24 08:12 Latanoprost 0.005% Op Soln 50 Drops/2.5 Ml Bottle EYE-BOTH 02/23/25 10:59 Not Given DAILY CORAZON Levothyroxine Sodium 50 mcg 02/24/24 09:40 02/28/24 [...] 02/23/25 20:59 Not Given BID CORAZON Phenyleph/Shark Oil/Chattaroy Butter 1 supp 02/26/24 21:00 02/28/24 09:41 Phenylephrine/Chattaroy Butter 6.25 Mg/2211 Mg 1 Supp DC 02/25/25 20:59 1 supp BID CORAZON Administration [...] signed by Anand Khan DO> 02/28/24 113[address] [facility] Work Phone: 1(198) 288-751206-25-2024 Progress note Author Anand Khan [facility] February 27, 2024 11:28am Note Date/Time February 27, 2024 11:2 8am [facility] [address] [place] [address] Hospitalist Progress Note Signed Patient: Love Martinez MR#: [id number] : 1940 Acct:[id number] Age/Sex: 83 / F Adm Date: 4 Loc: Room: [address] [place] [address] Type: ADM IN Attending Dr: Anand Khan [...] Insuln.Pen SUBCUT 02/22/25 11:59 Not Given TID.[facility] Protocol Latanoprost 1 drops 02/24/24 [...] 02/24/24 21:00 02/27/24 08:21 Pantoprazole 40 Mg Tablet. PO 02/23/25 20:59 40 mg BID CORAZON Administration Phenyleph/Shark Oil/Chattaroy Butter 1 supp 02/26/24 21:00 02/27/24 08:21 Phenylephrine/Chattaroy Butter 6.25 Mg/2211 Mg 1 Supp DC 02/25/25 20:59 1 supp BID CORAZON Administration [...] signed by Anand Khan DO> 02/27/24 1[address] [facility] Work Phone: 1(282) 595-920606-23-2024 Progress note Author Navi Torres [facility] February 25, 2024 4:11pm Note Date/Time February 25, 2024 4:03 pm [facility] [address] [place] [address] Hospitalist Progress Note Signed Patient: Love Martinez MR#: [id number] : 1940 Acct:[id number] Age/Sex: 83 / F Adm Date: 4 Loc: Room: [address] [place] [address] Type: ADM IN Attending Dr: Navi Torres [...] 02/24/24 21:00 02/25/24 08:41 Pantoprazole 40 Mg Tablet. PO 02/23/25 20:59 40 mg BID CORAZON [...] signed by Navi Torres MD> 02/25/24 1611 [facility] Work Phone: 1(484) 716-767706-22-2024 Progress note Author Navi Torres [facility] February 24, 2024 12:55pm Note Date/Time February 24, 2024 12:4 4pm [facility] [address] [place] [address] Hospitalist Progress Note Signed Patient: Love Maritnez MR#: [id number] : 1940 Acct:[id number] Age/Sex: 83 / F Adm Date: 4 Loc: Room: [address] [place] [address] Type: ADM IN Attending Dr: Navi Torres [...] Insuln.Pen SUBCUT 02/22/25 11:59 Not Given TID.WM.[facility] Protocol Latanoprost 1 drops 02/24/24 11:00 02/24/24 11:42 Latanoprost 0.005% Op Soln 50 Drops/2.5 Ml Bottle EYE-BOTH 02/23/25 10:59 1drops DAILY CORAZON Administration Levothyroxine Sodium 50 mcg 02/24/24 09:40 02/24/24 11:42 Levothyroxine 50 Mcg Tablet PO 02/23/25 09:39 50 mcg DAILY@0630 CORAZON Administration Metoprolol Tartrate 50 mg 02/24/24 21:00 Metoprolol Tartrate 50 Mg Tablet PO 02/23/25 20:59 BID CORAZON Ondansetron HCl 4 mg 02/20/24 22:07 Ondansetron 4 Mg/2 Ml Vial IV-PUSH 02/19/25 22:06 Q8H PRN Nausea And Vomiting Pantoprazole Sodium 40 mg 02/24/24 21:00 Pantoprazole 40 Mg Tablet. PO 02/23/25 20:59 BID CORAZON Pravastatin Sodium 40 mg 02/24/24 22:00 Pravastatin 40 Mg Tablet PO 02/23/25 21:59 QHS CORAZON Timolol Maleate 1 drops 02/24/24 11:00 02/24/24 [...] submitted. Documented By: Navi Torres MD 4 1243 Signed By: <Electronically signed by Navi Torres MD> 02/24/24 [address]255 [facility] Work Phone: 1(982) 662-339306-22-2024 Progress note Author Navi Torres [facility] February 23, 2024 11:25pm Note Date/Time February 23, 2024 11:2 5pm [facility] [address] [place] [address] Hospitalist Progress Note Signed Patient: Love Martinez MR#: [id number] : 1940 Acct:[id number] Age/Sex: 83 / F Adm Date: 4 Loc: Room: [address] [place] [address] Type: ADM IN Attending Dr: Navi Torres [...] 02/23/24 20:00 02/23/24 20:00 02/23/24 20:00 02/23/24 20:02/23/24 20:00 Narrative: Constitutional: Elderly WF, resting in [...] submitted. Documented By: Navi Torres MD 4 2323 Signed By: <Electronically signed by Navi Torres MD> 02/23/24 2325 [facility] Work Phone: 1(508) 595-755406-20-2024 Progress note Author Navi Torres [facility] February 22, 2024 3:10pm Note Date/Time February 22, 2024 2:21 pm [facility] [address] [place] [address] Hospitalist Progress Note Signed Patient: Love Martinez MR#: [id number] : 1940 Acct:[id number] Age/Sex: 83 / F Adm Date: 4 Loc: Room: [address] [place] [address] Type: ADM IN Attending Dr: Navi Torres [...] submitted. Documented By: Navi Torres MD 4 0513 Signed By: <Electronically signed by Navi Torres MD> 02/22/24 [facility] Work Phone: 1(991) 406-201606-20-2024 Progress note Author Ana Lilia May [facility] February 22, 2024 2:21pm Note Date/Time February 22, 2024 2:06 pm [facility] [address] [place] [address] Cardiology Progress Note Signed Patient: Love Martinez MR#: [id number] : 1940 Acct:[id number] Age/Sex: 83 / F Adm Date: 4 Loc: Room: [address] [place] [address] Type: ADM IN Attending Dr: Navi Torres MD Copies to: ~ Date of Service: 02/22/2024 Subjective Interval history: Ms. Martinez is a 83 year old female with past medical history significant for persistent A-fib on Eliquis, diabetes type 2, hypertension, GERD, hypothyroidismwho presented as a transfer from the [facility] complaining of weakness in bilateral lower extremities. Patient states that she was using the bathroom on the morning of admission when she was unable to get off the toilet due to weakness of bilateral lower extremities. She denied upper extremity weakness. No denied chest pain, dyspnea, palpitations, lightheadedness or syncope. EMS was called and was transferred to [facility]. EKG showed atrial fibrillation with heart rate of 80 bpm and was reported to have [address] depression in V4 and V5. Labs were significant for WBC of 16, troponin of 127--135. He was then transferred to [facility] for further management. On arrival here EKG [...] % (Auto) 68.8 Lymph % (Auto) 15.6 [place] % (Auto) 9.8 Eos % (Auto) 5.2 Baso % (Auto) 0.6 Nucleat RBC Rel Count 0.0 Neut # (Auto) 4.5 Lymph # (Auto) 1.0 [place] # (Auto) 0.6 Eos # (Auto) 0.3 [...] MPV Neut % (Auto) Lymph % (Auto) [place] % (Auto) Eos % (Auto) Baso % (Auto) Nucleat RBC Rel Count Neut # (Auto) Lymph # (Auto) [place] # (Auto) Eos # (Auto) Baso # [...] Documented By: Ana Lilia May MD 02/22/24 1402 Signed By: <Electronically signed by Ana Lilia May MD> 02/22/24 1425 [facility] Work Phone: 1(456) 992-531506-20-2024 History and physical note Author Cash Abreu [facility] February 22, 2024 8:47am Note Date/Time February 20, 2024 10:2 1pm [facility] [address] [place] [address] Hospitalist H&P Signed Patient: Love Martinez MR#: [id number] : 1940 Acct:[id number] Age/Sex: 83 / F Adm Date: 4 Loc: Room: [address] [place] [address] Type: ADM IN Attending Dr: Naiv Torres MD Copies to: MD Navi Dietrich MD Sarah A Kampfer BRUSHING OPERATOR-SHELLFISH CHECKER~ HPI DATE OF EXAMINATION: 02/20/24 CHIEF COMPLAINT: generalized weakness HISTORY OF PRESENT ILLNESS: 83 year old woman with history of PAF on eliquis, NIDDM2, hypothyroidism, GERD, HTN who presented to [facility] complaining of generalized weakness. Per the [...] chest pain or lightheadedness. Pt presented to [facility] for evaluation, vitals signs on arrival were WNL. CXR and head CT were unremarkable. lab studies notable for WBC 16K, K 3.5, troponin 127 -> 135. ECG at [facility] revealed atrial fibrillation with ventricular rate of 80 bpm, ~1mm ST depression in V4 and V5. Pt was transferred to this hospital for further evaluation. Pt feels well and denies any current complaints ROS: 10 systems reviewed and were negative except as noted in the [facility] Social History Smoking Status: Never smoker Substance [...] days): 2 Documented By: Cash Abreu MD 02/20/243 Signed By: <Electronically signed by Cash Abreu MD> 02/22/24 0847 [facility] Work Phone: 1(314) 847-454206-19-2024 Progress note Author Navi Torres [facility] February 21, 2024 8:41pm Note Date/Time February 21, 2024 7:31 pm [facility] [address] [place] [address] Hospitalist Progress Note Signed with Addenda Patient: Love Martinez MR#: [id number] : 1940 Acct:[id number] Age/Sex: 83 / F Adm Date: 4 Loc: Room: [address] [place] [address] Type: ADM IN Attending Dr: Navi Torres [...] Full Code Documented By: Navi Torres MD 4 [id number] Signed By: <Electronically signed by Navi Torres MD> 02/21/242038 [facility] Work Phone: 1(330) 844-815206-19-2024 Consult note Author Ana Lilia May [facility] February 21, 2024 4:53pm Note Date/Time February 21, 2024 4:48 pm [facility] [address] [place] [address] Cardiology Consult Note Signed Patient: Love Martinez MR#: [id number] : 1940 Acct:[id number] Age/Sex: 83 / F Adm Date: 4 Loc: Room: [address] [place] [address] Type: ADM IN Attending Dr: Navi Torres MD Copies to: MD Ana Lilia Michael MD Sarah A Kampfer APRN-SHELLFISH CHECKER~ Cardiology HPI History of Present Illness Consult Date: 02/21/24 Reason for Consult: Elevated troponin and EKG changes HPI: Ms. Martinez is a 83 year old female with past medical history significant for persistent A-fib on Eliquis, diabetes type 2, hypertension, GERD, hypothyroidismwho presented as a transfer from the [facility] complaining of weakness in bilateral lower extremities. Patient states that she was using the bathroom on the morning of admission when she was unable to get off the toilet due to weakness of bilateral lower extremities. She denied upper extremity weakness. No denied chest pain, dyspnea, palpitations, lightheadedness or syncope. EMS was called and was transferred to [facility]. EKG showed atrial fibrillation with heart rate of 80 bpm and was reported to have [address] depression in V4 and V5. Labs were significant for WBC of 16, troponin of 127--135. He was then transferred to [facility] for further management. On arrival here EKG showed atrial fibrillation with no ischemic changes. Troponin was mildly elevated 35--29. On evaluation, patient continues to complain of lower extremity weakness but denies any chest pain or dyspnea. Review of Systems Review of Systems All other systems reviewed & are negative unless noted below or in HPI [facility] Social History Smoking Status: Never smoker Substance Use Type: None Meds Medications and Allergies Allergies No Known Allergies Allergy (Verified 02/20/24 23:01) Exam Physical Exam Vital Signs: Temp Pulse Resp BP Pulse Ox O2 Del Method 97.9 F 68 16 135/71 99 Room Air 02/21/24 16:00 02/21/24 16:00 02/21/24 16:00 02/21/24 16:00 02/21/24 16:00 02/21/24 16:00 Narrative: GEN: AAOx3. No acute distress. [...] x10E3/uL Lymph # (Auto) 1.1 (1.00-4.8) x10E3/uL [place] # (Auto) 0.9 H (0.0-0.8) x10E3/uL Eos [...] Documented By: Ana Lilia May MD 02/21/24 0826 Signed By: <Electronically signed by Ana Lilia May MD> 02/21/24 0015 [facility] Work Phone: 1(117) 271-235902-07-2024 History of Present illness Narrative* Anita Lincolnpeperichard, DIRECTOR OF STRATEGIC SOURCING - 10/11/2023 2:00 PM EST Love Martinez is a 83 y.o. female presents with chief complaint of Establish [facility] [place] and Medicare Annual Wellness Visit Subsequent HPI: Patient is here to [facility], and is also here for medicare wellness. She does need ?to have hydrochlorothiazide, omeprazole refilled. She goes through [employer] or [employer] in [place]. Idania just passed on Monday. She is living [...] taxes?: Yes Cognitive Screening Three Word Registration: Garrison, Rylie, Finger Clock Drawing: Normal Clock - 2 [...] for independence. Livingwill and durable power of associate attorney reviewed. Updated patient problem list and [...] Patient voices understanding of meds. Acquired hypothyroidism (CMS/FORMERLY [facility]) - TSH W/REFLEX TO FT4; Future -On synthroid Mixed hyperlipidemia ([facility]) - Lipid panel; Future - Comprehensive metabolic panel; Future -On a statin Type 2 diabetes mellitus with hyperglycemia, without long-term current use of insulin ([facility]) - Lipid panel; Future - Comprehensive metabolic [...] HOB. Age-related osteoporosis without current pathological fracture ([facility]) - Vitamin D 25 hydroxy; Future -Check [...] from a rollator Persistent atrial fibrillation (HCC) ([facility]) -On eliquis and beta eliceo Malignant neoplasm of left female breast, unspecified estrogen receptor status, unspecified site ofbreast ([facility]) -Released from oncology a year ago, she has an open mammogram ordered. Encouraged to complete mammogram. Unsteady gait when walking Grief ([facility]) -Recently lost her spouse, she feel she is handling it ok. She does live with her younger sister, has her for support. Declines counseling. [facility] [id number] NoteHNO ID: [id number] Author: Julio Lambert MD Service: ? Author Type: Physician Type: Progress Notes Filed: 05/25/2021 9:59 AM Note Text: NAME: Love Martinez CLINIC NO.: [id number] DATE OF SERVICE: May 21, 2021 Some elements in this clinic note that are critical to medical decision making have been carefully reviewed and included from a prior clinic note dated: May 22, 2020 Additional Clinicians involved in Love Martinez's care: Nancy Hannah, Chalo Kidd MD ([facility]) CC: breast cancer follow up. ASSESSMENT: 80 year old post-menopausal female diagnosed with a left sided [id number], stage I breast cancer (0.7 cm, T1b, overall grade 2 with associated DCIS, ER 100%, DC 100%, HER-2 negative) treated with lumpectomy and [...] grade 2 with associated DCIS. ER 100%, DC 100%, HER-2 negative score 0. Had been [...] tablet Take 50 (more content not included)... [facility] Diagnosis Encounter for wellness examination- Primary Primary hypertension (CMS/HCC) Unspecified essential hypertension Acquired hypothyroidism ([facility]/HCC) Unspecified hypothyroidism Mixed hyperlipidemia ([facility]) Mixed hyperlipidemia Type 2 diabetes mellitus with hyperglycemia, without long-term current use of insulin ([facility]) Gastroesophageal reflux disease, unspecified whether esophagitis present Age-related osteoporosis without current pathological fracture ([facility]) Anemia, unspecified type Difficulty initiating walking Osteopenia determined by x-ray H/O: hysterectomy Acquired absence of both cervix and uterus Anxiety Anxiety state, unspecified Primary osteoarthritis of both hips Persistent atrial fibrillation (HCC) ([facility]) Atrial fibrillation Malignant neoplasm of left female breast, unspecified estrogen receptor status, unspecified site of breast ([facility]) Unsteady gait when walking Grief ([facility]) Adjustment disorder with depressed mood Cervical cancer screening declined Colon cancer screening declined Osteoporosis screening declined documented in this encounter [facility] HealthcareEvaluation note* Diagnosis Onset Date Resolution Status DM type 2 (diabetes mellitus, type 2) acute Elevated troponin acute Essential hypertension acute Falls acute GERD (gastroesophageal reflux disease) acute Leukocytosis acute Paraparesis of both lower limbs acute Persistent atrial fibrillation acute [facility] Work Phone: Evaluation note* Diagnosis Dermatophytosis of nail- Primary Dystrophic nail Other specified disease of nail Pain around toenail, right foot Pain around toenail, left foot documented in this encounter [facility] HealthcareEvaluation note* Diagnosis Dermatophytosis of nail- Primary Dystrophic nail Other specified disease of nail Pain around toenail, right foot Pain around toenail, left foot documented in this encounter [facility] Healthcare Summary Purpose Family History No Family [...] content) DATE CREATED AUTHOR 04/24/2019 [facility] DATE CREATED AUTHOR AUTHOR'S ORGANIZ ATION 10/24/2021 [facility] DATE CREATED AUTHOR AUTHOR'S ORGANIZ ATION 06/09/2022 [facility] Specialist DATE CREATED AUTHOR AUTHOR'S ORGANIZ ATION 03/06/2024 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 Reason Comments DM Foot Care Established pt prese nts for DM nail care. Pt currently is residing at [facility], pt sees in house doctor there, no current A1C or recent sugars. Care Teams (unrecognized sec tion and content) Inspector Wire Rope Relationship Specialty Start Date End Date Jose Galindo PCP - [employer] 09/04/22 Iliana Nava MD [address] [place] [address] PCP - General Family Medicine 10/05/23 Team Status: Active Member Role Status Dates MARCIANO Soto Primary Care Provider Active Team Status: Inactive Member Role Status Dates MARCIANO Soto Primary Care Provider Active Start: February 21, 2024 End: March 02, 2024 Cash Abreu MD Admit Provider Active S tart: February 21, 2024 End: March 02, 2024 Guero Cantu MD Attending Provider Active S tart: February 21, 2024 End: March 02, 2024 Team Status: Active Member Role Status Dates Anita Isabel , DIRECTOR OF STRATEGIC SOURCING-C Primary Care Provider Active Start: February 21, [...] Other Provider Active Start: February 21, 2024 Inspector Wire Rope Relationship Specialty Start Date End Date Jose Galindo PCP - [employer] 09/04/21 Iliana Nava MD [address] [facility] [place] [address] PCP - General Family Medicine 10/05/23 Inspector Wire Rope Relationship Specialty Start Date End Date Jose Galindo PCP - [employer] 09/04/21 Iliana Nava MD [address] [facility] [place] [address] PCP - General Family Medicine 10/05/23 Inspector Wire Rope Relationship Specialty Start Date End Date Jose Galindo PCP - [employer] 09/04/21 Iliana Nava MD [address] [facility] [place] [address] PCP - General Family Medicine 10/05/23 Inspector Wire Rope Relationship Specialty Start Date End Date Unallocated, Susi Whittaker [place] [address] [place] [address] PCP - General Family Medicine 07/02/24 Nancy Hannah DO [address] [place] [address] PCP - [employer] 09/04/21 Inspector Wire Rope Relationship Specialty Start Date End Date Unallocated, Noms Panfilo, [address] [place] [address] PCP - General Family Medicine 07/02/24 Nancy Hannah DO [address] [facility] [place] [address] PCP - [employer] 09/04/21 FOR RECORDS PERTAINING TO PATIENTS WHO ARE [...] BE BASED ON THE PRIMARY CLINICAL RECORDS. [facility]. provides no warranty or guarantee of the accuracy or completeness of information in this document.
[2024-10-28 02:36] VITALS: O2SAT 95
--- NOTE | 2024-10-28 02:39 | ED.GENADUL1 ---
HPI HPI - General Adult General Chief complaint: Urogenital-Female Stated complaint: GROIN PAIN Time Seen by Provider: 10/28/24 02:18 Source: patient and caregiver Source information: EMS, and pt Mode of arrival: ambulance Limitations: no limitations History of Present Illness HPI narrative: This 84-year-old female presents for evaluation of left lower quadrant abdominal pain. The patient states that earlier in the evening nurse told her that she was going to order some blood work and get some laxatives for the patient. She has not had a bowel movement in the past several days. She states that neither of those 2 things happened so she requested to come to the emergency department. She states that around 7:30 PM she started having some left lower quadrant abdominal pain. She states she had a normal dinner. She does not have any pain in her back. She denies any chest pain or shortness of breath. She is on Eliquis due to a history of cardiac disease. She has some mild nausea but has not vomited. She denies any recent diarrhea. She states she has had bleeding hemorrhoids for a period of time. She has not had a colonoscopy or had these evaluated. Upon arrival she is not having any pain whatsoever but is mildly nauseated. She does have a history of kidney stones. She denies any urinary symptoms at this time but apparently told EMS that she was urinating more frequently. Related Data Home Medications ?Medication ?Instructions ?Recorded ?Confirmed apixaban 5 mg tablet (Eliquis) 5 mg PO Q12H 02/20/24 10/28/24 atenolol 50 mg tablet 50 mg PO Q24H 02/20/24 02/20/24 hydrochlorothiazide 25 mg tablet 25 mg PO DAILY 02/20/24 02/20/24 levothyroxine 50 mcg tablet 50 mcg PO DAILY 02/20/24 10/28/24 (Synthroid) metformin 500 mg tablet,extended 500 mg PO DAILY 02/20/24 10/28/24 release 24 hr omeprazole 40 mg capsule,delayed 40 mg PO DAILY 02/20/24 10/28/24 release pravastatin 40 mg tablet 40 mg PO DAILY 02/20/24 02/20/24 timolol maleate 0.5 % eye drops 1 drp ophthalmic (eye) BEDTIME 02/20/24 10/28/24 cephalexin 500 mg capsule 500 mg PO TID 10/28/24 10/28/24 cholecalciferol (vitamin D3) .ROUTE 10/28/24 docusate sodium 100 mg capsule 100 mg PO DAILY 10/28/24 10/28/24 (Colace) furosemide 20 mg tablet mg 10/28/24 hydrocodone 5 mg-acetaminophen 325 1 tab PO Q4H 10/28/24 10/28/24 mg tablet hydrocortisone topical 10/28/24 latanoprost 0.005 % eye drops drp ophthalmic (eye) 10/28/24 ondansetron HCl 4 mg tablet 4 mg PO Q6H 10/28/24 10/28/24 Previous Rx's ?Medication ?Instructions ?Recorded cephalexin 500 mg capsule 500 mg PO Q8H 7 days #21 caps 06/30/24 tamsulosin 0.4 mg capsule (Flomax) 0.4 mg PO DAILY #10 caps 06/30/24 tramadol 50 mg tablet 50 mg PO Q8H PRN pain #6 tabs 06/30/24 Allergies Allergy/AdvReac Type Severity Reaction Status Date / Time No Known Drug Allergies Allergy Verified 02/20/24 13:17 Opioid HPI Opioid Management Most Recent Opioid Data: No Data to Display Review of Systems ROS Status of ROS 10 or more systems reviewed and unremarkable except as noted in history and below [facility] Medical History (Updated 10/28/24 @ 06:21 by Adamaris Blankenship MD) Atrial fibrillation ?I48.91 - Unspecified atrial fibrillation (ICD-10) Falls frequently ?R29.6 - Repeated falls (ICD-10) Rhabdomyolysis ?M62.82 - Rhabdomyolysis (ICD-10) Leukocytosis, unspecified ?D72.829 - Elevated white blood cell count, unspecified (ICD-10) HTN (hypertension) ?I10 - Essential (primary) hypertension (ICD-10) Social History Little interest or pleasure in doing things: not at all Feeling down, depressed, or hopeless: not at all Exam Narrative Exam Narrative: Vital signs and Nursing Notes reviewed: Patient is afebrile with a normal pulse, blood pressure is elevated at 166/95, she is not hypoxic with pulse ox of 95% on room air General: Awake, alert, oriented, no acute distress, lying comfortably on the stretcher HEENT: Normocephalic atraumatic, mucous membranes are moist and pink, eyes are clear, normal conjunctiva, vision is grossly intact Neck: Supple Chest: Lungs are clear to auscultation with good air entry, there is no wheezing rhonchi or rales appreciated no accessory muscle use, patient is speaking in complete sentences-no chest wall tenderness to palpation CVS: Regular rate and rhythm S1-S2, no murmurs rubs or gallops, pulses are brisk and equal bilaterally ABD: Soft, nondistended, no rebound guarding or rigidity, mild tenderness in the left lower quadrant. There is no inguinal area tenderness or lymphadenopathy. There are multiple nonthrombosed external hemorrhoids which are not bleeding at this time. I do not appreciate any dried blood or fissures in this area, there is no tenderness. : Normal external genitalia without signs of local inflammation or cellulitis Extremities: Moving all extremities, no lower extremity tenderness or swelling noted, negative Homans' sign, pulses are brisk and equal bilaterally Skin: Normal in appearance without rash,pallor, petechiae or purpura Neuro: No focal deficits Constitutional Vital Signs, click to edit/add: Last Vital Signs Temp 98.4 F 10/28/24 02:11 Pulse 90 10/28/24 02:11 Resp 16 10/28/24 02:11 BP 166/95 H 10/28/24 02:11 Pulse Ox 95 10/28/24 02:36 O2 Del Method Room Air 10/28/24 02:36 Course Vital Signs Vital signs: Vital Signs Temperature 98.4 F 10/28/24 02:11 Pulse Rate 90 10/28/24 02:11 Respiratory Rate 16 10/28/24 02:11 Blood Pressure 166/95 H 10/28/24 02:11 Pulse Oximetry 95 10/28/24 02:11 Oxygen Delivery Method Room Air 10/28/24 02:11 Temperature 98.4 F 10/28/24 02:11 Pulse Rate 90 10/28/24 02:11 Respiratory Rate 16 10/28/24 02:11 Blood Pressure 166/95 H 10/28/24 02:11 Pulse Oximetry 95 10/28/24 02:36 Oxygen Delivery Method Room Air 10/28/24 02:36 Medical Decision Making MDM Narrative Medical decision making narrative: This 84-year-old female presents for evaluation of left lower quadrant abdominal pain. She states that the pain started around 7:30 PM. She was having some bleeding from her hemorrhoids and a nurse told her that she was going to get her something for her constipation and order some labs but this did not happen. She had some mild nausea upon arrival which resolved. She was mildly tender in the left lower quadrant on her exam. She has some nonthrombosed and nonbleeding external hemorrhoids. She states she had not been passing much gas and her last bowel movement was several days ago. She denies any flank pain. An IV was placed and she was medicated with IV fluids. I ordered her Tylenol and Zofran but she declined both stating that she was not having any pain and she was not having any nausea. She is on Eliquis. Her white count is mildly elevated at 12.6 with a stable hemoglobin of 11.8. Platelet count is normal at 224. Electrolytes are normal. She does have a mild elevation in her bilirubin of 1.1 and AST is mildly elevated at 43. Lactic acid is normal at 1.8. While in the emergency department she use the bathroom and produced a frankly bloody urine specimen. She also passed gas at this time. CT scan of the abdomen pelvis with IV contrast was ordered. It shows a 3 mm stone in the left distal ureter just above the left UVJ with associated partial left renal obstruction. 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 Due to the pain, history of kidney stones and bloody urine she was empirically treated with a gram of Rocephin. She is still not required any pain medication or nausea medication. The results of her CT scan were discussed with her and she was given a copy for her records. She has not required any nausea medicine or pain medication while in the emergency department. She will be given a dose of Flomax. She will be discharged back to the extended care facility with a prescription for pain medication, nausea medication, Flomax and Keflex with referral to outpatient urology. Lab Data Labs: Lab Results 10/28/24 10/28/24 10/28/24 Range/Units 02:30 03:00 04:45 WBC 12.6 H (4.0-11.0) 10^3/uL RBC 4.08 L (4.20-5.40) 10^6/uL Hgb 11.8 L (12.0-16.0) g/dL Hct 35.7 L (36.0-48.0) % MCV 87.5 (81.0-99.0) fL MCH 28.9 (26.7-34.0) pg MCHC 33.1 (29.9-35.2) g/dL RDW 15.0 (11.0-15.0) % Plt Count 224 (150-450) 10^3/uL MPV 11.4 (9.5-13.5) fL Neut % (Auto) 84.3 H (43.0-75.0) % Lymph % (Auto) 7.0 L (20.5-60.0) % [place] % (Auto) 7.1 (1.7-12.0) % Eos % (Auto) 0.8 L (0.9-7.0) % Baso % (Auto) 0.3 (0.2-2.0) % Neut # (Auto) 10.7 H (1.4-6.5) 10^3/uL Lymph # (Auto) 0.9 L (1.2-3.8) 10^3/uL [place] # (Auto) 0.9 H (0.3-0.8) 10^3/uL Eos # (Auto) 0.1 (0.0-0.7) 10^3/uL Baso # (Auto) 0.0 (0.0-0.1) 10^3/uL Abs Immat Gran (auto) 0.06 H (0.00-0.03) 10^3/uL Imm/Tot Granulo (auto) 0.5 (0.0-0.5) % Sodium 138 (136-145) mmol/L Potassium 4.3 (3.5-5.1) mmol/L Chloride 103 (98-107) mmol/L Carbon Dioxide 29.3 (21.0-32.0) mmol/L Anion Gap 10.0 BUN 26.0 H (7.0-18.0) mg/dL Creatinine 0.71 (0.55-1.02) mg/dL Est GFR ( Amer) >60 (>=60 mL/min/1.73m^2) Est GFR (Non-Af Amer) >60 (>=60 mL/min/1.73m^2) BUN/Creatinine Ratio 36.6 Glucose 212 H (74-106) mg/dL Lactate 1.8 (0.4-2.0) mmol/L Calcium 8.8 (8.5-10.1) mg/dL Total Bilirubin 1.1 H (0.2-1.0) mg/dL AST 43 H (15-37) U/L ALT 17 (14-59) U/L Alkaline Phosphatase 74 (46-116) U/L Total Protein 6.9 (6.4-8.2) g/dL Albumin 2.7 L (3.4-5.0) g/dL Globulin 4.2 g/dL Albumin/Globulin Ratio 0.6 Urine Color Dk. red (YELLOW) Urine Clarity Clear (CLEAR) Urine pH Color interference A (5.0-9.0) Ur Specific [place] 1.010 (1.005-1.025) Urine Protein Color interference A (NEG/TRACE) mg/dL Urine Glucose (UA) Color interference A (NEGATIVE) mg/dL Urine Ketones Color interference A (NEGATIVE) mg/dL Urine Occult Blood Color interference A (NEGATIVE) Urine Nitrite Color interference A (NEGATIVE) Urine Bilirubin Color interference A (NEGATIVE) Urine Urobilinogen Color interference A (0.2-1.0) EU/dL Ur Leukocyte Esterase Color interference A (NEGATIVE) Urine RBC >100 A (0-2) #/HPF Urine WBC None seen (NONE SEEN) #/HPF Ur Squamous Epith Cells None seen (NONE/RARE) #/LPF Urine Crystals None seen (None Seen) #/HPF Urine Bacteria Moderate A (NONE SEEN) #/HPF Urine Casts None seen (NONE SEEN) #/LPF Urine Mucus None seen (NONE SEEN) Ur Culture Indicated? Yes-[facility] [place] Discharge Plan Discharge Chief Complaint: Urogenital-Female Clinical Impression: Hydronephrosis, Hematuria, Kidney stone on left side, External hemorrhoids, Constipation Patient Disposition: Home, Self-Care Time of Disposition Decision: 06:20 Condition: Good Prescriptions / Home Meds: No Action pravastatin 40 mg tablet 40 mg PO DAILY omeprazole 40 mg capsule,delayed release(DR/EC) 40 mg PO DAILY levothyroxine [Synthroid] 50 mcg tablet 50 mcg PO DAILY hydrochlorothiazide 25 mg tablet 25 mg PO DAILY metformin 500 mg tablet extended release 24 hr 500 mg PO DAILY atenolol 50 mg tablet 50 mg PO Q24H Eliquis 5 mg tablet 5 mg PO Q12H timolol maleate 0.5 % drops 1 drp OPHTHALMIC (EYE) BEDTIME tamsulosin [Flomax] 0.4 mg capsule 0.4 mg PO DAILY Qty: 10 0RF cephalexin 500 mg capsule 500 mg PO Q8H 7 Days Qty: 21 0RF tramadol 50 mg tablet 50 mg PO Q8H PRN (Reason: pain) Qty: 6 0RF cholecalciferol (vitamin D3) .ROUTE docusate sodium [Colace] 100 mg capsule 100 mg PO DAILY furosemide 20 mg tablet hydrocortisone [Preparation H Hydrocortisone] topical latanoprost 0.005 % drops OPHTHALMIC (EYE) cephalexin 500 mg capsule 500 mg PO TID hydrocodone-acetaminophen 5-325 mg tablet 1 tab PO Q4H ondansetron HCl 4 mg tablet 4 mg PO Q6H Print Language: Belarusian Instructions: Constipation (ED), Renal Colic (ED), Hydronephrosis (ED) Referrals: Adia Yuan MD [Physician] - 1 week Anita Isabel NP [Primary Care Provider] - 1 week Discharge Date/Time: 10/28/24 08:50
[2024-10-28 02:41] LABS: Basophils Percent Auto 0.3 % (0.2-2.0); Eosinophils Absolute Auto 0.1 10^3/uL (0.0-0.7); Eosinophils Percent Auto 0.8 % (0.9-7.0); Hematocrit 35.7 % (36.0-48.0); Hemoglobin 11.8 g/dL (12.0-16.0); Immature Granulocytes Abs Auto 0.06 10^3/uL (0.00-0.03); Immature Granulocytes Pct Auto 0.5 % (0.0-0.5); Lymphocytes Absolute Auto 0.9 10^3/uL (1.2-3.8); Mean Corpuscular HGB Conc 33.1 g/dL (29.9-35.2); Mean Corpuscular Hemoglobin 28.9 pg (26.7-34.0); Mean Corpuscular Volume 87.5 fL (81.0-99.0); Mean Platelet Volume 11.4 fL (9.5-13.5); Monocytes Absolute Auto 0.9 10^3/uL (0.3-0.8); Monocytes Percent Auto 7.1 % (1.7-12.0); Neutrophils Absolute Auto 10.7 10^3/uL (1.4-6.5); Neutrophils Percent Auto 84.3 % (43.0-75.0); Platelet Count 224 10^3/uL (150-450); Red Blood Count 4.08 10^6/uL (4.20-5.40); White Blood Count 12.6 10^3/uL (4.0-11.0)
[2024-10-28] MEDS: 0.9 % SODIUM CHLORIDE 500 ML IV (02:51)
[2024-10-28] MEDS: ACETAMINOPHEN 325 MG TABLET 650 MG PO (02:54)
[2024-10-28 02:58] LABS: Lactate/Lactic Acid 1.8 mmol/L (0.4-2.0)
[2024-10-28 03:17] LABS: Alanine Aminotransferase 17 U/L (14-59); Albumin Globulin Ratio 0.6; Albumin Level 2.7 g/dL (3.4-5.0); Alkaline Phosphatase 74 U/L (46-116); Aspartate Amino Transferase 43 U/L (15-37); BUN Creatinine Ratio 36.6; Bilirubin Total 1.1 mg/dL (0.2-1.0); Calcium 8.8 mg/dL (8.5-10.1); Carbon Dioxide 29.3 mmol/L (21.0-32.0); Chloride 103 mmol/L (98-107); Estimated GFR (African America >60 (>=60 mL/min/1.73m^2); Estimated GFR (Non-African Ame >60 (>=60 mL/min/1.73m^2); Globulin 4.2 g/dL; Glucose 212 mg/dL (74-106); Potassium 4.3 mmol/L (3.5-5.1); Sodium 138 mmol/L (136-145); Total Protein 6.9 g/dL (6.4-8.2)
[2024-10-28] MEDS: 0.9 % SODIUM CHLORIDE 1,000 ML 100 ML IV (04:10)
[2024-10-28 04:50] LABS: Clarity Urine CLEAR (CLEAR); Color Urine DK. RED (YELLOW)
[2024-10-28 04:51] LABS: Bilirubin Urine COLOR INTERFERENCE (NEGATIVE); Blood Urine COLOR INTERFERENCE (NEGATIVE); Glucose Urine UA COLOR INTERFERENCE mg/dL (NEGATIVE); Ketones Urine COLOR INTERFERENCE mg/dL (NEGATIVE); Nitrite Urine COLOR INTERFERENCE (NEGATIVE); Protein Urine COLOR INTERFERENCE mg/dL (NEG/TRACE); pH Urine COLOR INTERFERENCE (5.0-9.0)
[2024-10-28 04:52] LABS: Leukocyte Esterase Urine COLOR INTERFERENCE (NEGATIVE); Urobilinogen Urine COLOR INTERFERENCE EU/dL (0.2-1.0)
[2024-10-28 05:00] LABS: Bacteria Urine MODERATE #/HPF (NONE SEEN); Cast Seen? NONE SEEN #/LPF (NONE SEEN); Crystals Seen? None Seen #/HPF (None Seen); Mucus Urine NONE SEEN (NONE SEEN); RBC Urine >100 #/HPF (0-2); Squamous Epithelial Cell Urine NONE SEEN #/LPF (NONE/RARE); Urine Culture Indicated YES-FRMC; WBC Urine NONE SEEN #/HPF (NONE SEEN)
[2024-10-28] MEDS: CEFTRIAXONE 1,000 MG in 0.9 % SODIUM CHLORIDE 50 ML 100 MG IV (05:03)
[2024-10-28] MEDS: TAMSULOSIN HCL 0.4 MG CAPSULE PO (06:48)
== END 2024-10-28 08:50 | disposition home or self-care (01) ==
PROVIDERS: Emergency Provider Emergency Medicine; PCP Nurse Practitioner Family
DX: N13.2 Hydronephrosis with renal and ureteral calculous obstruction (principal); Z79.01 Long term (current) use of anticoagulants; I51.9 Heart disease, unspecified; Z87.442 Personal history of urinary calculi; K64.4 Residual hemorrhoidal skin tags; M51.369 Other intervertebral disc degeneration, lumbar region without mention of lumbar back pain or lower extremity pain; M16.12 Unilateral primary osteoarthritis, left hip; Z96.641 Presence of right artificial hip joint; K44.9 Diaphragmatic hernia without obstruction or gangrene; R31.9 Hematuria, unspecified; K59.00 Constipation, unspecified
CPT/HCPCS: 36415; 74177; 80053; 81001; 83605; 85025; 87086; 96365; 99284; J0696; Q9967